=== PATIENT | female | born 1945 | race Caucasian/White ===

== ENCOUNTER → 2018-08-31 14:43 | Outpatient (CLI) | payer MEDICARE, SELFPAY ==
[2018-08-31 16:39] LABS: BUN Creatinine Ratio 25.6 (6-22); Blood Urea Nitrogen 23 mg/dL (7-17); Calcium 9.4 mg/dL (8.4-10.2); Carbon Dioxide 30 mmol/L (22-32); Chloride 102 mmol/L (98-107); Cholesterol 201 mg/dL (140-199); Estimated Glomerular Filt Rate > 60.0 mL/min (>60); Glucose 92 mg/dL (80-110); HDL Cholesterol 79 mg/dL (40-60); HEMOLYSIS < 15 (0-50); LDL Cholesterol Calculated 107 mg/dL (<100); Potassium 4.2 mmol/L (3.4-5.1); Sodium 143 mmol/L (137-145); Triglycerides 76 mg/dL (35-150)
== END ==
PROVIDERS: PCP Internal Medicine; Visit Provider Internal Medicine
DX: Z00.00 Encounter for general adult medical examination without abnormal findings (principal); M85.831 Other specified disorders of bone density and structure, right forearm; Z78.0 Asymptomatic menopausal state; Z87.891 Personal history of nicotine dependence
CPT/HCPCS: 36415; 77080; 80048; 80061

== ENCOUNTER 2018-10-10 15:42 | Emergency (ER) | payer MEDICARE, SELFPAY ==
[2018-10-10 15:53] VITALS: BP 170/74; PULSE 76; RESP 16; TEMP 36.7; O2SAT 100
--- NOTE | 2018-10-10 16:04 | DI.RAD.S_ITS ---
PROCEDURE: XR CHEST 1V INDICATIONS: chest pain TECHNIQUE: One view of the chest was acquired. COMPARISON: [facility], , CHEST 2 VIEW, 11/22/2010, 10:51. FINDINGS: Surgical changes and devices: None. Lungs and pleura: No pleural effusions or pneumothorax. No acute consolidation. There is scattered subsegmental atelectasis and/or scarring . Mediastinum: Mediastinal contours appear normal. Heart size is normal. Bones and chest wall: No suspicious bony lesions. Overlying soft tissues appear unremarkable. Lateral curvature of the spine IMPRESSION: No acute disease. Dictated by: Clement Townsend M.D. on 10/10/2018 at 16:27 Approved by: Clement Townsend M.D. on 10/10/2018 at 16:29
--- NOTE | 2018-10-10 16:10 | ED_ITS ---
HPI - Chest Pain General Chief Complaint: Chest Pain Stated Complaint: CHEST PAIN, LT ARM PAIN Time Seen by Provider: 10/10/18 15:59 Source: patient Mode of arrival: ambulatory Limitations: no limitations History of Present Illness HPI narrative: Patient is a 73-year-old female who presents with chest discomfort. She says she was in the kitchen where she felt some chest pressure and tightness. She took some Rolaids and aspirin lasted for under the than 10 min. She denies any shortness of breath or heart palpitations. Earlier in the day she was having some left arm tingling from her fingertips up to her arm felt like her hand was asleep. She did not have the symptoms at the same time. She overall has no chest pain now. MD complaint: chest pain Onset (ago): minute(s) Duration: now resolved Severity: moderate Quality: tightness and heaviness Pain radiation: none Relieving factors: nothing Exacerbating factors: nothing Context: recent illness Associated symptoms: nausea Treatments prior to arrival chest pain: none Related Data Allergies Allergy/AdvReac Type Severity Reaction Status Date / Time INGREDIENT: NKDA - NO KNOWN Allergy Unknown Uncoded 02/14/18 12:53 DRUG ALLERGIES Meperidine AdvReac Unknown Uncoded 02/14/18 12:53 Review of Systems Review of Systems All systems reviewed & are unremarkable except as noted in HPI and below Constitutional Denies chills, Denies fever(s), Denies lethargy and Denies weakness Cardiovascular Reports as per HPI, Reports chest pain, Denies dyspnea and Denies dyspnea on exertion Respiratory Denies cough, Denies dyspnea, Denies dyspnea on exertion and Denies wheezing Gastrointestinal Gastrointestinal: Denies abdominal pain, Denies change in bowel habits, Denies diarrhea, Denies nausea and Denies vomiting Musculoskeletal Reports as per HPI Comments: Left hand tingling now resolved Integumentary/Breasts Denies pruritus, Denies erythema, Denies rash and Denies wounds Neurologic Denies weakness Allergic/Immunologic Denies wheezing PFSH Medical History GERD (gastroesophageal reflux disease) (Acute) Healthy adult (Acute) Social History Smoking Status: Never smoker alcohol intake: never substance use type: does not use Exam Initial Vital Signs Initial Vital Signs: Vital Signs Temperature 98.1 F 10/10/18 15:53 Pulse Rate 76 10/10/18 15:53 Respiratory Rate 16 10/10/18 15:53 Blood Pressure 170/74 H 10/10/18 15:53 Pulse Oximetry 100 10/10/18 15:53 GENERAL: Well-appearing, well-nourished and in no acute distress. HEENT: Head atraumatic,EOMI, pupils reactive, face symmetric, no JVD CARDIOVASCULAR: Regular rate and rhythm without murmurs, rubs or gallops. RESPIRATORY: Breath sounds equal bilaterally, no wheezes rales or rhonchi. ABDOMEN: Soft, nontender. Normoactive bowel sounds all 4 quadrants. No guarding or rebound. : No CVA tenderness EXTREMITIES: Normal range of motion, no clubbing or edema. Neurovascularly intact NEUROLOGICAL: Alert and oriented x4.Normal gait and speech. Cranial nerves II through XII grossly intact. SKIN: Warm, dry, no laceration, no petechiae, no rashes or lesions. Scores HEART Score Heart Score history: Slightly Suspicious Heart Score EKG: Normal Heart Score Age: > or = 65 years old Heart Score risk factors: No known risk factors Heart Score troponin: < or = to normal limit Heart Score Total: 2 Course Orders Ordered: ED Orders 10/10/18 15:52 EKG-12 Lead Stat 10/10/18 15:55 Complete Blood Count AUTO DIFF Stat Comprehensive Metabolic Panel Stat Lipase Stat Troponin & CK Cardiac Panel Stat 10/10/18 16:04 XR chest 1V Stat 10/10/18 16:33 EKG-12 Lead Routine 10/10/18 17:57 Troponin I Stat Vital Signs - 8 hr 10/10/18 15:53 10/10/18 17:02 10/10/18 18:00 Temperature 98.1 F Pulse Rate 76 58 L 60 Respiratory Rate 16 15 12 Blood Pressure 170/74 H Blood Pressure [Right Arm] 159/80 H 184/75 H Pulse Oximetry 100 98 100 MDM - Chest Pain Lab Data Attestation: I reviewed the patient's lab results. Result diagrams: 10/10/18 15:55 10/10/18 15:55 Lab Results 10/10/18 10/10/18 10/10/18 Range/Units 15:55 15:55 17:57 WBC 6.2 (4.5-11.0) X10^3/uL RBC 4.01 (4.0-5.2) X10^6/uL Hgb 13.0 (12.0-16.0) g/dL Hct 37.6 (36-46) % MCV 93.8 (80-100) fL MCH 32.5 (26-34) PG MCHC 34.6 (30-36) % RDW 13.3 (11.6-14.8) % Plt Count 249 (150-400) X10^3/uL Neut % (Auto) 46.2 L (50-75) % Lymph % (Auto) 39.5 (25-40) % [place] % (Auto) 7.6 (3-14) % Eos % (Auto) 5.6 H (2-4) % Baso % (Auto) 1.1 (0-2) % Neut # (Auto) 2800 L (7899-4258) /uL Sodium 142 (137-145) mmol/L Potassium 3.8 (3.4-5.1) mmol/L Chloride 104 (98-107) mmol/L Carbon Dioxide 28 (22-32) mmol/L BUN 31 H (7-17) mg/dL Creatinine 0.90 (0.52-1.04) mg/dL Estimated GFR > 60.0 (>60) mL/min BUN/Creatinine Ratio 34.4 H (6-22) Glucose 112 H (80-110) mg/dL Calcium 9.3 (8.4-10.2) mg/dL Total Bilirubin 0.4 (0.2-1.3) mg/dL AST 30 (14-36) IU/L ALT 23 (9-52) IU/L Alkaline Phosphatase 62 (38-126) U/L Total Creatine Kinase 102 (30-135) U/L CK-MB (CK-2) 0.80 (<2.37) ng/mL CK-MB (CK-2) Rel Index 0.8 L (1.5-5.0) % Troponin I < 0.012 < 0.012 (0.01-0.034) ng/mL Total Protein 6.8 (6.3-8.2) g/dL Albumin 4.2 (3.5-5.0) g/dL Globulin 2.6 (1.7-4.1) g/dL Albumin/Globulin Ratio 1.6 (1.0-2.8) Lipase 155 (23-300) U/L Imaging Data Chest x-ray: Radiologist's impression: Patient: Mona Sparrow JMR#: [id number] : 6Acct:[id number] Age/Sex: 73 / FDate of Service: 10/10/18 Loc: ED Accession Number: [id number] Procedure: XR chest 1V Ordering Provider: Marlene Sorto D.O. PROCEDURE: XR CHEST 1V INDICATIONS: chest pain TECHNIQUE: One view of the chest was acquired. COMPARISON: [facility], CHEST 2 VIEW, 11/22/2010, 10:51. FINDINGS: Surgical changes and devices: None. Lungs and pleura: No pleural effusions or pneumothorax. No acute consolidation. There is scattered subsegmental atelectasis and/or scarring . Mediastinum: Mediastinal contours appear normal. Heart size is normal. Bones and chest wall: No suspicious bony lesions. Overlying soft tissues appear unremarkable. Lateral curvature of the spine IMPRESSION: No acute disease. Dictated by: Clement Townsend M.D. on 10/10/2018 at 16:27 ECG Data Attestation: I personally reviewed and interpreted this ECG as follows: Prior ECG tracings: not available for review Interpretation: EKG 1.: Sinus rhythm rate [address] depression in V2 and V3 but there is artifact is, no ST changes no priors to compare EKG 2. Normal sinus rhythm rate 16 CA interval [address] changes no artifact noted no T-wave inversion MDM Narrative Medical decision making narrative: Patient has not had recurrent chest pain while in the ED 2 troponins are negative. Did discuss with her that she may need further cardiac evaluation. However not at this time. She still has intermittent hand tingling but no arm weakness. She says that tingling goes up to her elbow sometimes. This is not consistent with cardiac or stroke. Discharge Plan Departure Patient Disposition: Home Clinical Impression: Atypical chest pain Discharge Date/Time: 10/10/18 18:43 Interventions: ED Discharge Assessment Last Done: 10/10/18 18:42 Instructions: DI for Atypical Chest Pain Activity Restrictions/Additional Instructions: *You have been diagnosed with atypical chest *What to do: He may require further hurt evaluation such as a stress test with her primary care provider. Your blood pressure should also be rechecked you may require a blood pressure medication however not indicated at this time *Continue to take medications as directed Aspirin 81 mg daily *Follow up with your primary care provider in 2-3 days *Return to ER if you should have worsening chest pain, shortness of breath, heart palpitations, arm pain, arm weakness or any new, worsening or concerning symptoms Referrals: Rebeca Sawant MD [Physician] -
[2018-10-10 16:16] LABS: Add Manual Diff / Slide Review NO; Basophils Percent Auto 1.1 % (0-2); Eosinophils Percent Auto 5.6 % (2-4); Hematocrit 37.6 % (36-46); Lymphocytes Percent Auto 39.5 % (25-40); Mean Corpuscular HGB Conc 34.6 % (30-36); Mean Corpuscular Hemoglobin 32.5 PG (26-34); Mean Corpuscular Volume 93.8 fL (80-100); Monocytes Percent Auto 7.6 % (3-14); Neutrophils Absolute Auto 2800 /uL (3000-5900); Neutrophils Percent Auto 46.2 % (50-75); Platelet Count 249 X10^3/uL (150-400); Red Blood Cell Count 4.01 X10^6/uL (4.0-5.2); Red Cell Distribution Width 13.3 % (11.6-14.8); White Blood Cell Count 6.2 X10^3/uL (4.5-11.0)
[2018-10-10 16:22] LABS: Alanine Aminotransferase 23 IU/L (9-52); Albumin 4.2 g/dL (3.5-5.0); Albumin Globulin Ratio 1.6 (1.0-2.8); Alkaline Phosphatase 62 U/L (38-126); Aspartate Aminotransferase 30 IU/L (14-36); BUN Creatinine Ratio 34.4 (6-22); Bilirubin Total 0.4 mg/dL (0.2-1.3); Blood Urea Nitrogen 31 mg/dL (7-17); Calcium 9.3 mg/dL (8.4-10.2); Carbon Dioxide 28 mmol/L (22-32); Chloride 104 mmol/L (98-107); Creatine Kinase 102 U/L (30-135); Estimated Glomerular Filt Rate > 60.0 mL/min (>60); Globulin 2.6 g/dL (1.7-4.1); Glucose 112 mg/dL (80-110); HEMOLYSIS 15 (0-50); Lipase 155 U/L (23-300); Potassium 3.8 mmol/L (3.4-5.1); Sodium 142 mmol/L (137-145); Total Protein 6.8 g/dL (6.3-8.2)
[2018-10-10 16:37] LABS: Troponin I < 0.012 ng/mL (0.01-0.034)
[2018-10-10 16:38] LABS: CKMB % Relative Index 0.8 % (1.5-5.0)
[2018-10-10 17:02] VITALS: BP 159/80; PULSE 58; RESP 15; O2SAT 98
[2018-10-10 18:00] VITALS: BP 184/75; PULSE 60; RESP 12; O2SAT 100
[2018-10-10 18:32] LABS: Troponin I < 0.012 ng/mL (0.01-0.034)
[2018-10-10 18:42] VITALS: BP 174/81; PULSE 58; RESP 20; O2SAT 99
== END 2018-10-10 18:43 | disposition home or self-care (01) ==
PROVIDERS: Emergency Provider Emergency Medicine
DX: R07.89 Other chest pain (principal)
CPT/HCPCS: 36591; 71045; 80053; 82550; 82553; 83690; 84484; 85025; 93005; 93010; 93041; 99283; 99285

== ENCOUNTER → 2018-11-13 08:15 | Outpatient (CLI) | payer MEDICARE, SELFPAY ==
--- NOTE | 2018-11-13 09:21 | P.PCN_ITS ---
Cardiac Stress Test Report Referral & Results Date Patient Seen: 11/13/18 Requesting provider: Rebeca Sawant Indication: Chest pain Rest ECG: Unremarkable Procedure Note: Today following both written and verbal informed consent the patient was exercised according to a standard Garry protocol patient went for a total of 3 min 34 sec achieving a maximum heart rate of 155 maximum systolic blood pressure of 212. This is approximately 4.6 METS. Exercise was terminated at this point because of inability the patient to continue and mild dyspnea. Patient was also given Cardiolite through a previously started Hep-Lock IV by the fire sprinkler service technician approximately 1 minute prior to the cessation of exercise. No ST-T segment changes were noted although there was a lot of motion artifact but and exercise with artifact missing there was no ST segment changes No dysrhythmias were identified Functional aerobic impairment rated about 10% of the sedentary scale Impression: No evidence of ischemia in a patient with average exercise capacity Please see perfusion imaging for additional details Please note: Actual ECG tracings can be found in the PACS system.
--- NOTE | 2018-11-14 14:51 | DI.NM.S_ITS ---
DATE OF SERVICE: 11/13/2018 PROCEDURE: Exercise perfusion study. INDICATIONS: Chest pain with underlying hypertension, hyperlipidemia. RADIOPHARMACEUTICAL: 26.6mCi technetium-99m Myoview IV was injected at stress and 24.9 mCi technetium-99m Myoview IV was injected at rest. CARDIAC STRESS: Patient underwent exercise perfusion study under the supervision of an attending staff. She walked on Garry protocol for 3 minutes 34 seconds, achieved 97% of target heart rate. There was hypertensive blood pressure response. Resting blood pressure 136/78. Blood pressure 212/100. Maximum heart rate of about 145. Functional aerobic impairment +35%. Patient became hypertensive and tachycardic during stress and it was discontinued. Baseline rhythm was sinus RSR-complex in V1. Stress EKG did not reveal any obvious inducible changes. There was baseline artifact seen as well during stress. No significant arrhythmias seen. Patient had dyspnea. No chest pain. RAW DATA: There is increased subdiaphragmatic activity. There is hotspot near the apex and inferior border. GATED STUDY: Stress LV ejection fraction 78%. I don't see any obvious wall motion abnormalities. Resting end-diastolic volume is 96 mL. No transient ischemic dilatation. TID ratio is 0.71, which is within normal limits. Lung/heart ratio is 0.21, which is within normal limits. MYOCARDIAL PERFUSION SCAN: Stress supine, resting supine, and stress prone images were compared to each other. Stress supine images revealed small-sized mildly decreased perfusion of distal anterior wall and anterior apex. Resting supine images revealed small -sized [id number] decreased perfusion of distal anterior wall and anterior apex. During stress prone images, there was improvement of distal anterior wall defect. However, patient remained to have mildly decreased perfusion of anterior apex. I don't see any obvious reversible ischemia. CONCLUSION: No obvious reversible ischemia. Patient has predominantly fixed apical perfusion defect. There is a hotspot seen near the apex and inferior border of the heart. [place] is moving well. Most likely we are dealing with persistent tissue attenuation artifact. On surface EKG, there is no obvious pathological Q waves. Stress EKG did not reveal any obvious inducible ischemia or significant arrhythmias. The patient has poor exercise tolerance. There was hypertensive blood pressure response. Overall, function left ventricular (LV) is preserved. Clinical correlation is recommended. Mona Sparrow - NON LINEAR EDITOR/fn/ab doc#: [id number]/job#: [id number] dd: 11/14/2018 12:39:00 dt: 11/14/2018 14:37:00 DICTATING MD/COPIES TO: Siria Paiz MD COPIES MNE: XIN
== END ==
PROVIDERS: Visit Provider Internal Medicine
DX: R07.9 Chest pain, unspecified (principal); I10 Essential (primary) hypertension; E78.5 Hyperlipidemia, unspecified
CPT/HCPCS: 78452; 93016; 93017; 93018; A9502

== ENCOUNTER → 2018-12-06 15:09 | Outpatient (CLI) | payer MEDICARE, SELFPAY ==
--- NOTE | 2018-12-06 | DI.MRI.S_ITS ---
PROCEDURE: MR HEAD/BRAIN WO CON INDICATIONS: HEADACHE TECHNIQUE: Non-contrast axial T1 spin echo, axial T2 fast spin echo, sagittal and axial FLAIR, coronal T2 fast spin echo, axial gradient echo, axial diffusion and ADC through the brain. COMPARISON: [facility], MR, BRAIN WITH AND WITHOUT CONTRAS, 04/11/2008, 7:26. [facility] With [facility], MR, C-SPINE WITH&WITHOUT CONTRAST, 04/11/2008, 7:07. FINDINGS: Image quality: Excellent. CSF spaces: Ventricles appear symmetric in size and shape. Basal cisterns are patent. No extra-axial fluid collections. Brain: No intracranial bleeds or mass effects. There is cerebral volume loss for age. There are foci of T2 hyperintensity in the periventricular and subcortical white matter. One white matter lesion involves the splenium of corpus callosum Brainstem appears normal. Diffusion-weighted images show no acute ischemic insults. No chronic ischemic insults. Normal intravascular flow voids are present. Skull and face: Calvarial bone marrow is normal in signal. Orbits are normal. Sinuses: Sinuses and mastoids are clear. IMPRESSION: 1. No acute intracranial abnormalities. 2. There are foci of T2 hyperintensity in the periventricular and subcortical white matter. One white matter lesion involves corpus of callosum. Differential diagnoses include chronic microvascular ischemic changes versus a demyelinating process such as multiple sclerosis. Recommend clinical correlation. Dictated by: Bobby Gan M.D. on 12/06/2018 at 16:42 Approved by: Bobby Gan M.D. on 12/06/2018 at 18:23
== END ==
PROVIDERS: PCP Internal Medicine; Visit Provider Internal Medicine
DX: R51 Headache (principal)
CPT/HCPCS: 70551

== ENCOUNTER → 2019-01-14 06:20 | Outpatient (CLI) | payer MEDICARE, SELFPAY ==
--- NOTE | 2019-01-14 | DI.MRI.S_ITS ---
PROCEDURE: MR HEAD/BRAIN WO/W CON INDICATIONS: ABNORMAL MRI BRAIN TECHNIQUE: Noncontrast axial T1 spin echo, axial T2 fast spin echo, sagittal and axial FLAIR, coronal T2 fast spin echo, axial gradient echo, axial diffusion and ADC through the brain. After the administration of contrast, axial and coronal T1 spin echo with fat saturation through the brain. COMPARISON: [facility], MR, BRAIN WITH AND WITHOUT CONTRAS, 04/11/2008, 7:26. [facility], MR, MR HEAD/BRAIN WO CON, 12/06/2018, 15:24. FINDINGS: Image quality: Excellent. CSF spaces: Basal cisterns are patent. No extra-axial fluid collections. Ventricles are normal in size and shape. Brain: No midline shift. No intracranial bleeds or masses. No abnormal intracranial enhancement. There is cerebral volume loss for age. There are multiple foci of T2/FLAIR hyperintensity in the periventricular and subcortical white. One white matter lesion involves the splenium of corpus callosum. On contrast enhanced images, there is no abnormal enhancement. The brainstem appears normal. Diffusion-weighted images demonstrate no acute ischemic insults. No chronic ischemic insults. Normal intravascular flow voids are present. Skull and face: Calvarial marrow is normal in signal. Orbits appear normal. Sinuses: Sinuses and mastoids appear clear. IMPRESSION: 1. There are multiple foci of white matter lesions bilaterally. The white matter lesion involving the splenium of corpus callosum, as well as other matter lesions, demonstrate no abnormal enhancement. Differential diagnosis remains chronic small vessel ischemic change versus multiple sclerosis. 2. Mild cerebral volume loss. Dictated by: Bobby Gan M.D. on 01/14/2019 at 9:04 Approved by: Bobby Gan M.D. on 01/14/2019 at 18:18
--- NOTE | 2019-01-14 | DI.MRI.S_ITS ---
PROCEDURE: MR CERVICAL SPINE WO/W CON INDICATIONS: ABN PRIOR HEAD MRI TECHNIQUE: Noncontrast sagittal T1 spin echo and T2 fast spin echo, sagittal STIR, sagittal PD fast spin echo, foraminal oblique sagittal T2 fast spin echo, axial gradient echo or T2 fast spin echo through the cervical spine. After the administration of contrast, sagittal and axial T1 spin echo with fat saturation through the cervical spine. COMPARISON: [facility], MR, MR HEAD/BRAIN WO/W CON, 01/14/2019, 6:44. [facility], MR, MR HEAD/BRAIN WO CON, 12/06/2018, 15:24. [facility], MR, C-SPINE WITH&WITHOUT CONTRAST, 04/11/2008, 7:07. FINDINGS: Image quality: Excellent. Alignment and curvature: There is trace retrolisthesis of C4 on C5, C6 on C7, trace anterolisthesis of C7 on T1, T2 on T3. Marrow: Marrow demonstrates normal overall signal. Spinal cord: Visualized spinal cord is normal in size, without white matter lesions. No suspicious intramedullary enhancement. No cerebellar tonsillar herniation. Paraspinous soft tissues: No paravertebral masses or suspicious enhancement. Discs: Moderate to severe desiccation is present most severe at C4-5, C5-6 and C6-7. C2-C3: No disc bulge, spinal stenosis or foraminal narrowing. C3-C4: Mild disc bulge with mild spinal stenosis. There is mild to moderate right and foraminal narrowing with uncovertebral hypertrophy. Slight interval progression. C4-C5: Mild disc bulge with moderate spinal stenosis, slightly progressive. There is moderate bilateral foraminal narrowing with uncovertebral hypertrophy, also progressive. C5-C6: Mild disc bulge with moderate to severe spinal stenosis, progressive. Moderate to severe left and moderate right foraminal narrowing with uncovertebral hypertrophy, mildly progressive. C6-C7: Mild disc bulge with moderate spinal stenosis, progressive. Moderate bilateral, right greater than left foraminal narrowing with uncovertebral hypertrophy, slightly progressive compared to prior exam. C7-T1: No disc bulge, spinal stenosis or foraminal narrowing. IMPRESSION: 1. No abnormal spinal cord signal. 2. Multilevel degenerative changes demonstrating levels of interval progression compared to 2007. Dictated by: Caitie Hopper M.D. on 01/14/2019 at 11:36 Approved by: Caitie Hopper M.D. on 01/14/2019 at 12:01
== END ==
PROVIDERS: PCP Internal Medicine; Visit Provider Physician Assistant
DX: R90.89 Other abnormal findings on diagnostic imaging of central nervous system (principal); M47.812 Spondylosis without myelopathy or radiculopathy, cervical region
CPT/HCPCS: 70553; 72156; A9579

== ENCOUNTER 2019-03-12 13:00 | Outpatient (RCR) | payer MEDICARE, SELFPAY ==
--- NOTE | 2019-02-15 15:49 | PT.OIE ---
Current Diagnoses Radiculopathy, cervical region (02/14/19) Past Medical History (Last Updated 10/10/18 @ 16:10 by Marlene Sorto DO) GERD (gastroesophageal reflux disease) (Acute) Healthy adult (Acute) Provider Visit Care Team Role Provider Type Rebeca Sawant MD Primary Care Provider Physician Specialty: Internal Medicine Address: [address] [place] [address], [id number] Email: Madeline Escobedo MD Attending Provider Non-Staff Specialty: Neurology Address: [address] [place] [address], [id number] Email: Physical Therapy Initial Evaluation PT-OP-A Visit Information Start: 02/14/19 08:19 Freq: Status: Active Protocol: Document 02/14/19 08:21 BS (Rec: 02/14/19 08:25 BS [id number]) Out-Patient Physical Therapy Visit Information Visit Information Visit Type Initial Evaluation Visit Start Time 08:25 Visit Stop Time 09:10 Total Visit Minutes 45 Visit Number 1 Evaluation Information Evaluation Date 02/14/19 PT-OP-B Current Condition Start: 02/14/19 08:19 Freq: Status: Active Protocol: Document 02/14/19 08:21 BS (Rec: 02/14/19 08:25 BS [id number]) Current Condition History of Current Condition Onset Date 10/10/18 Current Complaints Neck pain with LUE numbness/ tingling, headache History of Current Condition Pt complains of neck pain, sharp shooting headaches and LUE numbness and tingling currently extending down to the palmar surface of the hand with no specific nerve distribution. This all began on 10/10/18 when pt experienced entire LUE numbness beginning in her L hand and gradually progressing to her shoulder and neck. Pt also states she had a headache, chest pain, and that her HR and BP was high. She went to the ED and reports all testing including chest xray were negative for cardiopulmonary involvement. Pt states that she continued to have constant LUE numbness for 3 weeks and that since then it has mostly localized to L hand limiting her ability to complete fine motor tasks. Pt reports neck pain as moderate and tolerable but that LUE numbness/tingling and daily sharp shooting electrical shock-like L sided HAs are of concern to her. Pt reports CALIX frequency of 3-6 per day lasting 10-15 minutes. She takes up to 4 ibuprofen/ day which relieves her HAs. Pt has had an MRI of cervical spine and brain, and NCV test all within the last month. Pt is R hand dominant. Prior Treatments and Tests VNCV 02/13/19:awaiting results Cervical MRI (01/14/19): multilevel degenerative changes and mild disc bulges Brain MRI (01/14/19): multiple foci of white matter lesions bilaterally, mild cerebral volume loss Chest Xray 10/10/18: negative per pt report tirn nerve sheath thumb side. 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 Hearing loss with use of hearing aids. Treatment Goals Patient/Caregiver Goals get rid of numbness/tingling reduce daily headaches Prior Functional Status Baseline Function- ADL's Independent Baseline Function- Mobility Independent Baseline Function- Gait Independent Baseline Function- Work/School Independent. Pt is currently retired. Enjoys mission work in [employer]. Baseline Function- Recreation/Hobbies Independent Baseline Function- Other Independent with all daily and recreational activities. Current Functional Impairments (Reported) Functional Limitations- ADL's unable to complete ADLs requiring manipulation of objects and fine motor control of L hand. Difficulty sleeping at night due to HAs and numbness/ tingling in LUE. Functional Limitations- Mobility/Gait Difficulty opening jars, carrying bags, preparing/ cutting food, and neck pain with driving. Pt ambulated with normal gait mechanics and without use of AD. Personal Factors Other Personal Factors That May Effect multilevel degenerative Therapy/Recovery changes of cervical spine PT-OP-C Subjective Start: 02/14/19 08:19 Freq: Status: Active Protocol: Document 02/14/19 08:21 BS (Rec: 02/14/19 08:25 BS [id number]) Patient Questionnaires Neck Disability Index NDI Score 30 Neck Disability Index Impairment 60 to 79% Impaired (Score 30- 39) Quick Dash- Upper Extremity Quick Dash UE Score 45 Quick Dash UE Impairment 40 to 59% Impaired (Score 40- 59) OP-PT Pain Assessment Pain Assessment Grid Paper Pain Assessment Grid Completed Yes Location Left Arm Pain Location Details Entire LUE Intensity 7 Scale Used Numeric (1 - 10) Description Radiating Sharp Description- Other Numbness/tingling Pain Aggravating Factors Position ADL's Activity Other Pain Aggravating Factors Ibuprofn for CALIX Home Pain Medication Use Pain Medications Used Yes Home Pain Medication Frequency up to 4 ibuprofen/day Comments Pain Comments 4/10 neck pain that is intermittent with numbness/ tingling extending to palmar surface of L hand. PT-OP-F Manual Assessment Start: 02/14/19 08:19 Freq: Status: Active Protocol: Document 02/14/19 08:21 BS (Rec: 02/15/19 08:15 BS [id number]) Manual Assessments Soft Tissue Assessment Soft Tissue Mobility Assessment Tightness of bilateral upper traps, tenderness to palpation of L suboccipitals. Joint Mobility Assessment Joint Mobility Assessment Hypomobility with central and unilateral PAs from C3-C7. PT-OP-G Mobility & Gait Start: 02/14/19 08:19 Freq: Status: Active Protocol: Document 02/14/19 08:21 BS (Rec: 02/15/19 08:15 BS [id number]) OP Mobility Evaluation Bed Mobility Supine to and from Sit Independent Transfers Sit to Stand Independent Bed to Chair Transfers Independent OP Gait Assessment Gait Gait Assistance Required: Independent Able to Maintain Weight Bearing Status Yes During Gait Assistive Devices Assistive Device None PT-OP-J Posture/Palpation/Skin Start: 02/14/19 08:19 Freq: Status: Active Protocol: Document 02/14/19 08:21 BS (Rec: 02/15/19 08:15 BS [id number]) Posture Evaluation Position Sitting Head/C-Spine Posture Forward Head Shoulder Posture (L) Rounded (R) Rounded Palpation Assessment Location One Palpation Location Cervical Palpation Findings Soft Tissue Tightness Palpation Details Bilateral upper traps, suboccipitals PT-OP-K Range of Motion Start: 02/14/19 08:19 Freq: Status: Active Protocol: Document 02/14/19 08:21 BS (Rec: 02/15/19 08:15 BS [id number]) Cervical Spine Range of Motion Cervical Spine Active Testing Position Sitting Flexion 40 Extension 25 Rotation Left 72 Rotation Right 45 Lateral Flexion Left 35 Lateral Flexion Right 30 Comments No pain or radicular symptoms with AROM today although pt states she occasionally has dizziness with cervical extension. Limited especially with R rotation. PT-OP-L Special Tests Start: 02/14/19 08:19 Freq: Status: Active Protocol: Document 02/14/19 08:21 BS (Rec: 02/15/19 14:22 BS [id number]) Special Tests Neural Special Tests- Upper Body Other- 1 Test Results Negative Comments Neural tension tests for median, ulnar, radial N negative for radicular symptom reproduction. PT-OP-M Strength Start: 02/14/19 08:19 Freq: Status: Active Protocol: Document 02/14/19 08:21 BS (Rec: 02/15/19 15:35 BS [id number]) Hand Program/Music Director/Pinch Strength Hand Dominance Hand Dominance Right Hand Strength Right Program/Music Director (lbs) 44.3 Tip Pinch (lbs) 7.66 Comments 3 trials: 48, 45, 40 3 trials: 8, 8, 7 Left Program/Music Director (lbs) 25 Tip Pinch (lbs) 8.0 Comments 3 trials: 25, 25, 25 3 trials: 8, 8, 8 PT-OP-Q Treatments Start: 02/14/19 08:19 Freq: Status: Active Protocol: Document 02/14/19 08:21 BS (Rec: 02/15/19 14:27 BS [id number]) Therapeutic Exercises Sitting Exercises 1 Sitting Exercise Name Upper trap stretch Side bilateral Reps/Minutes 2x30 each Comments added to HEP. Manual Therapy Treatment Soft Tissue Mobilization 1 Body Location Upper traps Mobilization Type Myofascial Release Rolling Intensity/Depth Moderate Body Position Hooklying Comments B upper trap tightness, no trigger points or pain referral. Joint Mobilizations 1 Joint Cervical C3-C7 Direction PA Grade III Body Position Hooklying Comments central and unilateral PAs. Hypomobility noted. Manual Traction Cervical Details Cervical Manual traction Body Position Hooklying Comments Pt experienced pain relief with manual traction to C spine. PT-OP-T Assessment and Plan Start: 02/14/19 08:19 Freq: Status: Active Protocol: Document 02/14/19 08:21 BS (Rec: 02/15/19 08:15 BS [id number]) Physical Therapy Assessment Rehab Potential Rehabilitation Potential Good Evaluation Complexity Number of Personal Factors/Comorbidities 0 Number of Body Systems Impaired 1-2 Clinical Presentation at Evaluation Stable Impairments Impairments Activity Tolerance Functional Activities Functional Mobility Pain Posture ROM Soft Tissue Mobility Strength Goals Three Short Term Goal (STG) Pt to report centralization of radicular symptoms in LUE and improved kiln stoker strength (LUE comparable to RUE) so that she is able to open jars and manipulate object. STG Duration 6 weeks Fdc Goal (LTG) Neck disability inventory (NDI ) to improve by 10%, demonstrating an improvement in ability to perform recreational and daily activities without limitations due to neck pain. LTG Duration 10-12 weeks Two STG Duration ROM Key Punch Operator Goal (LTG) Cervical ROM for R rotation to be comparable to L rotation for improved functional mobility and less neck stiffness with driving. LTG Duration 10-12 weeks One Impairment HEP Short Term Goal (STG) Pt to be independent with prescribed HEP to maximize rehabilitation potential outside of formal PT sessions. STG Duration 4 weeks Key Punch Operator Goal (LTG) Pt to report a reduction in the frequency of daily headaches so that she is able to sleep throughout the night and engage in daily activities . LTG Duration 10-12 weeks Assessment Summary Assessment Mona is a 73 year old female who presents with neck pain and radicular symptoms extending to palmar aspect of L hand with no specific nerve distribution. She also reports daily sharp, electrical shock-like headaches that occur only on the L, 3-6 daily lasting 10-15 minutes in duration. Pt has difficulty with daily activities that require object manipulation and fine motor control such as preparing food, opening containers, and carrying objects. She has difficulty sleeping at night due to heaches and numbness/tingling in LUE. Pt demonstrates UE weakness with kiln stoker strenth deficits and hypomobility of the cervical spine. She benefits from skilled physical therapy to improve cervical mobility, UE strength, and to reduce LUE radicular symptoms so that she can perform daily activities without weakness or N/T. Plan to trial mechanical traction to see if pt will benefit from home traction device to reduce radicular symptoms. Physical Therapy Plan Frequency and Duration Frequency of Treatment 1-2x/week Duration of Treatment 10-12 weeks Plan of Care Start Date 02/14/19 Plan of Care End Date 05/10/19 Next Visit Focus/Plan Next Note Type Treatment Note Next Visit Plan Assess B shoulder strength, ROM, and cervical MMT. Trial mechanical traction.
--- NOTE | 2019-02-15 15:50 | PT.OPPOC ---
Current Diagnoses Radiculopathy, cervical region (02/14/19) Provider Visit Care Team Role Provider Type Rebeca Sawant MD Primary Care Provider Physician Specialty: Internal Medicine Address: [address] [place] [address], [id number] Email: Madeline Escobedo MD Attending Provider Non-Staff Specialty: Neurology Address: [address] [place], [address] Email: Plan Of Care PT-OP-T Assessment and Plan Start: 02/14/19 08:19 Freq: Status: Active Protocol: Document 02/14/19 08:21 BS (Rec: 02/15/19 08:15 BS [id number]) Physical Therapy Assessment Rehab Potential Rehabilitation Potential Good Evaluation Complexity Number of Personal Factors/Comorbidities 0 Number of Body Systems Impaired 1-2 Clinical Presentation at Evaluation Stable Impairments Impairments Activity Tolerance Functional Activities Functional Mobility Pain Posture ROM Soft Tissue Mobility Strength Goals Three Short Term Goal (STG) Pt to report centralization of radicular symptoms in LUE and improved rn allergy strength (LUE comparable to RUE) so that she is able to open jars and manipulate object. STG Duration 6 weeks Bullet Casting Operator Goal (LTG) Neck disability inventory (NDI ) to improve by 10%, demonstrating an improvement in ability to perform recreational and daily activities without limitations due to neck pain. LTG Duration 10-12 weeks Two STG Duration ROM Half-Way Goal (LTG) Cervical ROM for R rotation to be comparable to L rotation for improved functional mobility and less neck stiffness with driving. LTG Duration 10-12 weeks One Impairment HEP Short Term Goal (STG) Pt to be independent with prescribed HEP to maximize rehabilitation potential outside of formal PT sessions. STG Duration 4 weeks Half-Way Goal (LTG) Pt to report a reduction in the frequency of daily headaches so that she is able to sleep throughout the night and engage in daily activities . LTG Duration 10-12 weeks Assessment Summary Assessment Mona is a 73 year old female who presents with neck pain and radicular symptoms extending to palmar aspect of L hand with no specific nerve distribution. She also reports daily sharp, electrical shock-like headaches that occur only on the L, 3-6 daily lasting 10-15 minutes in duration. Pt has difficulty with daily activities that require object manipulation and fine motor control such as preparing food, opening containers, and carrying objects. She has difficulty sleeping at night due to heaches and numbness/tingling in LUE. Pt demonstrates UE weakness with rn allergy strenth deficits and hypomobility of the cervical spine. She benefits from skilled physical therapy to improve cervical mobility, UE strength, and to reduce LUE radicular symptoms so that she can perform daily activities without weakness or N/T. Plan to trial mechanical traction to see if pt will benefit from home traction device to reduce radicular symptoms. Physical Therapy Plan Frequency and Duration Frequency of Treatment 1-2x/week Duration of Treatment 10-12 weeks Plan of Care Start Date 02/14/19 Plan of Care End Date 05/10/19 Next Visit Focus/Plan Next Note Type Treatment Note Next Visit Plan Assess B shoulder strength, ROM, and cervical MMT. Trial mechanical traction. Plan of Care Dates Plan of Care Start Date 02/14/19 Plan of Care End Date 05/10/19 Please Sign and Return: I have reviewed this Plan of Care and certify that the skilled therapy services above are required to meet the patient?s needs. Physician Signature Date Printed Name and Credentials Clinical Instructor Signature Printed Name and Credentials
--- NOTE | 2019-02-18 12:46 | PT.OTN ---
Current Diagnoses Radiculopathy, cervical region (02/18/19) Physical Therapy Treatment Note PT-OP-A Visit Information Start: 02/14/19 08:19 Freq: Status: Active Protocol: Document 02/18/19 08:15 AMB (Rec: 02/18/19 11:59 AMB [email or web address]) Out-Patient Physical Therapy Visit Information Visit Information Visit Type Treatment Note Visit Start Time 08:15 Visit Stop Time 09:00 Total Visit Minutes 45 Visit Number 2 PT-OP-B Current Condition Start: 02/14/19 08:19 Freq: Status: Active Protocol: Document 02/14/19 08:21 BS (Rec: 02/14/19 08:25 BS [id number]) Current Condition History of Current Condition Onset Date 10/10/18 Current Complaints Neck pain with LUE numbness/ tingling, headache History of Current Condition Pt complains of neck pain, sharp shooting headaches and LUE numbness and tingling currently extending down to the palmar surface of the hand with no specific nerve distribution. This all began on 10/10/18 when pt experienced entire LUE numbness beginning in her L hand and gradually progressing to her shoulder and neck. Pt also states she had a headache, chest pain, and that her HR and BP was high. She went to the ED and reports all testing including chest xray were negative for cardiopulmonary involvement. Pt states that she continued to have constant LUE numbness for 3 weeks and that since then it has mostly localized to L hand limiting her ability to complete fine motor tasks. Pt reports neck pain as moderate and tolerable but that LUE numbness/tingling and daily sharp shooting electrical shock-like L sided HAs are of concern to her. Pt reports CALIX frequency of 3-6 per day lasting 10-15 minutes. She takes up to 4 ibuprofen/ day which relieves her HAs. Pt has had an MRI of cervical spine and brain, and NCV test all within the last month. Pt is R hand dominant. Prior Treatments and Tests VNCV 02/13/19:awaiting results Cervical MRI (01/14/19): multilevel degenerative changes and mild disc bulges Brain MRI (01/14/19): multiple foci of white matter lesions bilaterally, mild cerebral volume loss Chest Xray 10/10/18: negative per pt report tirn nerve sheath thumb side. 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 Hearing loss with use of hearing aids. Treatment Goals Patient/Caregiver Goals get rid of numbness/tingling reduce daily headaches Prior Functional Status Baseline Function- ADL's Independent Baseline Function- Mobility Independent Baseline Function- Gait Independent Baseline Function- Work/School Independent. Pt is currently retired. Enjoys mission work in [facility]. Baseline Function- Recreation/Hobbies Independent Baseline Function- Other Independent with all daily and recreational activities. Current Functional Impairments (Reported) Functional Limitations- ADL's unable to complete ADLs requiring manipulation of objects and fine motor control of L hand. Difficulty sleeping at night due to HAs and numbness/ tingling in LUE. Functional Limitations- Mobility/Gait Difficulty opening jars, carrying bags, preparing/ cutting food, and neck pain with driving. Pt ambulated with normal gait mechanics and without use of AD. Personal Factors Other Personal Factors That May Effect multilevel degenerative Therapy/Recovery changes of cervical spine PT-OP-C Subjective Start: 02/14/19 08:19 Freq: Status: Active Protocol: Document 02/18/19 08:15 AMB (Rec: 02/18/19 11:59 AMB [email or web address]) OP-PT Subjective Patient Comments Patient Comments Mona reports her neck has been feeling more mobile but her headaches have been lasting longer. She woke up with a headache today, but it is better now, she did take Aleve. PT-OP-F Manual Assessment Start: 02/14/19 08:19 Freq: Status: Active Protocol: Document 02/14/19 08:21 BS (Rec: 02/15/19 08:15 BS [id number]) Manual Assessments Soft Tissue Assessment Soft Tissue Mobility Assessment Tightness of bilateral upper traps, tenderness to palpation of L suboccipitals. Joint Mobility Assessment Joint Mobility Assessment Hypomobility with central and unilateral PAs from C3-C7. PT-OP-G Mobility & Gait Start: 02/14/19 08:19 Freq: Status: Active Protocol: Document 02/14/19 08:21 BS (Rec: 02/15/19 08:15 BS [id number]) OP Mobility Evaluation Bed Mobility Supine to and from Sit Independent Transfers Sit to Stand Independent Bed to Chair Transfers Independent OP Gait Assessment Gait Gait Assistance Required: Independent Able to Maintain Weight Bearing Status Yes During Gait Assistive Devices Assistive Device None PT-OP-J Posture/Palpation/Skin Start: 02/14/19 08:19 Freq: Status: Active Protocol: Document 02/14/19 08:21 BS (Rec: 02/15/19 08:15 BS [id number]) Posture Evaluation Position Sitting Head/C-Spine Posture Forward Head Shoulder Posture (L) Rounded (R) Rounded Palpation Assessment Location One Palpation Location Cervical Palpation Findings Soft Tissue Tightness Palpation Details Bilateral upper traps, suboccipitals PT-OP-K Range of Motion Start: 02/14/19 08:19 Freq: Status: Active Protocol: Document 02/14/19 08:21 BS (Rec: 02/15/19 08:15 BS [id number]) Cervical Spine Range of Motion Cervical Spine Active Testing Position Sitting Flexion 40 Extension 25 Rotation Left 72 Rotation Right 45 Lateral Flexion Left 35 Lateral Flexion Right 30 Comments No pain or radicular symptoms with AROM today although pt states she occasionally has dizziness with cervical extension. Limited especially with R rotation. PT-OP-L Special Tests Start: 02/14/19 08:19 Freq: Status: Active Protocol: Document 02/14/19 08:21 BS (Rec: 02/15/19 14:22 BS [id number]) Special Tests Neural Special Tests- Upper Body Other- 1 Test Results Negative Comments Neural tension tests for median, ulnar, radial N negative for radicular symptom reproduction. PT-OP-M Strength Start: 02/14/19 08:19 Freq: Status: Active Protocol: Document 02/18/19 08:00 AMB (Rec: 02/18/19 12:44 AMB [email or web address]) Shoulder Strength Shoulder Manual Muscle Testing Right Flexion 4 Good Extension 5 Normal Abduction (C5) 4 Good Adduction 5 Normal External Rotation 5 Normal Left Flexion 4- Good- Extension 5 Normal Abduction (C5) 4- Good- External Rotation 5 Normal Internal Rotation 5 Normal PT-OP-Q Treatments Start: 02/14/19 08:19 Freq: Status: Active Protocol: Document 02/18/19 08:15 AMB (Rec: 02/18/19 12:40 AMB [email or web address]) Therapeutic Exercises Supine Exercises 2 Supine Exercise Name chin tuck Reps/Minutes 5x10 Comments focus on lengthen post neck 1 Supine Exercise Name serratus punch Resistance AROM Reps/Minutes 10 Sitting Exercises 2 Sitting Exercise Name theraputty Resistance green Comments pinch/ cat wagon operator Therapeutic Activity Therapeutic Activity 1 Name sleep positioning with pillows , log roll technique Comments instructed pt to avoid sitting straight up in bed to protect neck. Can use pillows to prop to try to avoid R sidelying as this seems to cause hand numbness Manual Therapy Treatment Soft Tissue Mobilization 1 Body Location Upper traps Mobilization Type Myofascial Release Rolling Intensity/Depth Moderate Body Position Hooklying Comments B upper trap tightness, no trigger points or pain referral. Manual Traction Cervical Details Cervical Manual traction Body Position Hooklying Comments Pt experienced pain relief with manual traction to C spine. Other Other Manual Treatments instruction in 2 tennis ball in sock self myofascial release PT-OP-T Assessment and Plan Start: 02/14/19 08:19 Freq: Status: Active Protocol: Document 02/18/19 08:15 AMB (Rec: 02/18/19 11:59 AMB [email or web address]) Physical Therapy Assessment Assessment Summary Assessment Mona has had an increase in duration of her headache symptoms. Follow up to see if this is continuing. Shoulder strength is slightly diminished in both flexion and abduction bilaterally. Physical Therapy Plan Next Visit Focus/Plan Next Note Type Treatment Note Next Visit Plan Trial mechanical traction.
--- NOTE | 2019-02-21 12:44 | PT.OTN ---
Current Diagnoses Radiculopathy, cervical region (02/21/19) Physical Therapy Treatment Note PT-OP-A Visit Information Start: 02/14/19 08:19 Freq: Status: Active Protocol: Document 02/21/19 10:28 BS (Rec: 02/21/19 11:57 BS [email or web address]) Out-Patient Physical Therapy Visit Information Visit Information Visit Type Treatment Note Visit Start Time 09:45 Visit Stop Time 10:23 Total Visit Minutes 38 Visit Number 3 PT-OP-B Current Condition Start: 02/14/19 08:19 Freq: Status: Active Protocol: Document 02/14/19 08:21 BS (Rec: 02/14/19 08:25 BS [id number]) Current Condition History of Current Condition Onset Date 10/10/18 Current Complaints Neck pain with LUE numbness/ tingling, headache History of Current Condition Pt complains of neck pain, sharp shooting headaches and LUE numbness and tingling currently extending down to the palmar surface of the hand with no specific nerve distribution. This all began on 10/10/18 when pt experienced entire LUE numbness beginning in her L hand and gradually progressing to her shoulder and neck. Pt also states she had a headache, chest pain, and that her HR and BP was high. She went to the ED and reports all testing including chest xray were negative for cardiopulmonary involvement. Pt states that she continued to have constant LUE numbness for 3 weeks and that since then it has mostly localized to L hand limiting her ability to complete fine motor tasks. Pt reports neck pain as moderate and tolerable but that LUE numbness/tingling and daily sharp shooting electrical shock-like L sided HAs are of concern to her. Pt reports CALIX frequency of 3-6 per day lasting 10-15 minutes. She takes up to 4 ibuprofen/ day which relieves her HAs. Pt has had an MRI of cervical spine and brain, and NCV test all within the last month. Pt is R hand dominant. Prior Treatments and Tests VNCV 02/13/19:awaiting results Cervical MRI (01/14/19): multilevel degenerative changes and mild disc bulges Brain MRI (01/14/19): multiple foci of white matter lesions bilaterally, mild cerebral volume loss Chest Xray 10/10/18: negative per pt report tirn nerve sheath thumb side. 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 Hearing loss with use of hearing aids. Treatment Goals Patient/Caregiver Goals get rid of numbness/tingling reduce daily headaches Prior Functional Status Baseline Function- ADL's Independent Baseline Function- Mobility Independent Baseline Function- Gait Independent Baseline Function- Work/School Independent. Pt is currently retired. Enjoys mission work in [employer] [facility]. Baseline Function- Recreation/Hobbies Independent Baseline Function- Other Independent with all daily and recreational activities. Current Functional Impairments (Reported) Functional Limitations- ADL's unable to complete ADLs requiring manipulation of objects and fine motor control of L hand. Difficulty sleeping at night due to HAs and numbness/ tingling in LUE. Functional Limitations- Mobility/Gait Difficulty opening jars, carrying bags, preparing/ cutting food, and neck pain with driving. Pt ambulated with normal gait mechanics and without use of AD. Personal Factors Other Personal Factors That May Effect multilevel degenerative Therapy/Recovery changes of cervical spine PT-OP-C Subjective Start: 02/14/19 08:19 Freq: Status: Active Protocol: Document 02/21/19 10:28 BS (Rec: 02/21/19 11:57 BS [email or web address]) OP-PT Subjective Patient Comments Patient Comments Mona states that she has had a constant headache since her last appointment. She has also had more N/T into LUE. PT-OP-F Manual Assessment Start: 02/14/19 08:19 Freq: Status: Active Protocol: Document 02/14/19 08:21 BS (Rec: 02/15/19 08:15 BS [id number]) Manual Assessments Soft Tissue Assessment Soft Tissue Mobility Assessment Tightness of bilateral upper traps, tenderness to palpation of L suboccipitals. Joint Mobility Assessment Joint Mobility Assessment Hypomobility with central and unilateral PAs from C3-C7. PT-OP-G Mobility & Gait Start: 02/14/19 08:19 Freq: Status: Active Protocol: Document 02/14/19 08:21 BS (Rec: 02/15/19 08:15 BS [id number]) OP Mobility Evaluation Bed Mobility Supine to and from Sit Independent Transfers Sit to Stand Independent Bed to Chair Transfers Independent OP Gait Assessment Gait Gait Assistance Required: Independent Able to Maintain Weight Bearing Status Yes During Gait Assistive Devices Assistive Device None PT-OP-J Posture/Palpation/Skin Start: 02/14/19 08:19 Freq: Status: Active Protocol: Document 02/14/19 08:21 BS (Rec: 02/15/19 08:15 BS [id number]) Posture Evaluation Position Sitting Head/C-Spine Posture Forward Head Shoulder Posture (L) Rounded (R) Rounded Palpation Assessment Location One Palpation Location Cervical Palpation Findings Soft Tissue Tightness Palpation Details Bilateral upper traps, suboccipitals PT-OP-K Range of Motion Start: 02/14/19 08:19 Freq: Status: Active Protocol: Document 02/14/19 08:21 BS (Rec: 02/15/19 08:15 BS [id number]) Cervical Spine Range of Motion Cervical Spine Active Testing Position Sitting Flexion 40 Extension 25 Rotation Left 72 Rotation Right 45 Lateral Flexion Left 35 Lateral Flexion Right 30 Comments No pain or radicular symptoms with AROM today although pt states she occasionally has dizziness with cervical extension. Limited especially with R rotation. PT-OP-L Special Tests Start: 02/14/19 08:19 Freq: Status: Active Protocol: Document 02/14/19 08:21 BS (Rec: 02/15/19 14:22 BS [id number]) Special Tests Neural Special Tests- Upper Body Other- 1 Test Results Negative Comments Neural tension tests for median, ulnar, radial N negative for radicular symptom reproduction. PT-OP-M Strength Start: 02/14/19 08:19 Freq: Status: Active Protocol: Document 02/18/19 08:00 AMB (Rec: 02/18/19 12:44 AMB [email or web address]) Shoulder Strength Shoulder Manual Muscle Testing Right Flexion 4 Good Extension 5 Normal Abduction (C5) 4 Good Adduction 5 Normal External Rotation 5 Normal Left Flexion 4- Good- Extension 5 Normal Abduction (C5) 4- Good- External Rotation 5 Normal Internal Rotation 5 Normal PT-OP-Q Treatments Start: 02/14/19 08:19 Freq: Status: Active Protocol: Document 02/21/19 10:28 BS (Rec: 02/21/19 11:57 BS [id number]) Therapeutic Exercises Supine Exercises 3 Supine Exercise Name Pec Stretch foam roll Equipment Used half foam roll Reps/Minutes x4 min, x10 shld add. Comments sustained stretch, then with horizontal add. Pillows for flexion of neck. Sitting Exercises 4 Sitting Exercise Name UE flexion, abduction Side bilateral Equipment Used No weight Reps/Minutes x10 each 3 Sitting Exercise Name Chin Tuck Reps/Minutes 2 x 10 Comments VCs for correct technique. Manual Therapy Treatment Soft Tissue Mobilization 2 Body Location Suboccipitals Mobilization Type Rolling Intensity/Depth Moderate Body Position Hooklying Comments R suboccipital more tender than L today. No referral of pain. Neck in slight flexion. 1 Body Location Upper traps Mobilization Type Myofascial Release Rolling Trigger Point Release Intensity/Depth Moderate Body Position Hooklying Comments R upper trap tighter than L. Multiple trigger points with STM to L upper trap. Pt reports decreased N/T LUE after manual work. Neck in slight flexion. PT-OP-T Assessment and Plan Start: 02/14/19 08:19 Freq: Status: Active Protocol: Document 02/21/19 10:28 BS (Rec: 02/21/19 11:57 BS [email or web address]) Physical Therapy Assessment Assessment Summary Assessment Pt complains of constant headache since last session. Today's session focused on manual therapy with pec stretching and light shoulder/ neck mobility exercises avoiding extension and SB/ROT of cervical spine. Pt to discontinue UT stretch at home as this increases her neck pain. Physical Therapy Plan Next Visit Focus/Plan Next Note Type Treatment Note Next Visit Plan Assess response to session and headache status. Avoid cervical extension, SB, ROT exercises. Assess neural tension in LUE.
--- NOTE | 2019-02-27 13:10 | PT.OTN ---
Current Diagnoses Radiculopathy, cervical region (02/27/19) Physical Therapy Treatment Note PT-OP-A Visit Information Start: 02/14/19 08:19 Freq: Status: Active Protocol: Document 02/27/19 09:02 SAK (Rec: 02/27/19 09:21 SAK [id number]) Out-Patient Physical Therapy Visit Information Visit Information Visit Type Treatment Note Visit Start Time 09:00 Visit Number 4 PT-OP-B Current Condition Start: 02/14/19 08:19 Freq: Status: Active Protocol: Document 02/14/19 08:21 BS (Rec: 02/14/19 08:25 BS [id number]) Current Condition History of Current Condition Onset Date 10/10/18 Current Complaints Neck pain with LUE numbness/ tingling, headache History of Current Condition Pt complains of neck pain, sharp shooting headaches and LUE numbness and tingling currently extending down to the palmar surface of the hand with no specific nerve distribution. This all began on 10/10/18 when pt experienced entire LUE numbness beginning in her L hand and gradually progressing to her shoulder and neck. Pt also states she had a headache, chest pain, and that her HR and BP was high. She went to the ED and reports all testing including chest xray were negative for cardiopulmonary involvement. Pt states that she continued to have constant LUE numbness for 3 weeks and that since then it has mostly localized to L hand limiting her ability to complete fine motor tasks. Pt reports neck pain as moderate and tolerable but that LUE numbness/tingling and daily sharp shooting electrical shock-like L sided HAs are of concern to her. Pt reports CALIX frequency of 3-6 per day lasting 10-15 minutes. She takes up to 4 ibuprofen/ day which relieves her HAs. Pt has had an MRI of cervical spine and brain, and NCV test all within the last month. Pt is R hand dominant. Prior Treatments and Tests VNCV 02/13/19:awaiting results Cervical MRI (01/14/19): multilevel degenerative changes and mild disc bulges Brain MRI (01/14/19): multiple foci of white matter lesions bilaterally, mild cerebral volume loss Chest Xray 10/10/18: negative per pt report tirn nerve sheath thumb side. 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 Hearing loss with use of hearing aids. Treatment Goals Patient/Caregiver Goals get rid of numbness/tingling reduce daily headaches Prior Functional Status Baseline Function- ADL's Independent Baseline Function- Mobility Independent Baseline Function- Gait Independent Baseline Function- Work/School Independent. Pt is currently retired. Enjoys mission work in [facility]. Baseline Function- Recreation/Hobbies Independent Baseline Function- Other Independent with all daily and recreational activities. Current Functional Impairments (Reported) Functional Limitations- ADL's unable to complete ADLs requiring manipulation of objects and fine motor control of L hand. Difficulty sleeping at night due to HAs and numbness/ tingling in LUE. Functional Limitations- Mobility/Gait Difficulty opening jars, carrying bags, preparing/ cutting food, and neck pain with driving. Pt ambulated with normal gait mechanics and without use of AD. Personal Factors Other Personal Factors That May Effect multilevel degenerative Therapy/Recovery changes of cervical spine PT-OP-C Subjective Start: 02/14/19 08:19 Freq: Status: Active Protocol: Document 02/27/19 09:02 SAK (Rec: 02/27/19 09:21 SAK [id number]) OP-PT Subjective Patient Comments Patient Comments 2 days of headaches aftter last session. NOthing has helped so far. Reports she feels like she is not thinking as effectiely due to the pain and headaches. What feels the best is traction, states she applies pressure and pulls up on the back of her head when she is really hurting. Reports using tennis balls hurts. PT-OP-F Manual Assessment Start: 02/14/19 08:19 Freq: Status: Active Protocol: Document 02/14/19 08:21 BS (Rec: 02/15/19 08:15 BS [id number]) Manual Assessments Soft Tissue Assessment Soft Tissue Mobility Assessment Tightness of bilateral upper traps, tenderness to palpation of L suboccipitals. Joint Mobility Assessment Joint Mobility Assessment Hypomobility with central and unilateral PAs from C3-C7. PT-OP-G Mobility & Gait Start: 02/14/19 08:19 Freq: Status: Active Protocol: Document 02/14/19 08:21 BS (Rec: 02/15/19 08:15 BS [id number]) OP Mobility Evaluation Bed Mobility Supine to and from Sit Independent Transfers Sit to Stand Independent Bed to Chair Transfers Independent OP Gait Assessment Gait Gait Assistance Required: Independent Able to Maintain Weight Bearing Status Yes During Gait Assistive Devices Assistive Device None PT-OP-J Posture/Palpation/Skin Start: 02/14/19 08:19 Freq: Status: Active Protocol: Document 02/14/19 08:21 BS (Rec: 02/15/19 08:15 BS [id number]) Posture Evaluation Position Sitting Head/C-Spine Posture Forward Head Shoulder Posture (L) Rounded (R) Rounded Palpation Assessment Location One Palpation Location Cervical Palpation Findings Soft Tissue Tightness Palpation Details Bilateral upper traps, suboccipitals PT-OP-K Range of Motion Start: 02/14/19 08:19 Freq: Status: Active Protocol: Document 02/14/19 08:21 BS (Rec: 02/15/19 08:15 BS [id number]) Cervical Spine Range of Motion Cervical Spine Active Testing Position Sitting Flexion 40 Extension 25 Rotation Left 72 Rotation Right 45 Lateral Flexion Left 35 Lateral Flexion Right 30 Comments No pain or radicular symptoms with AROM today although pt states she occasionally has dizziness with cervical extension. Limited especially with R rotation. PT-OP-L Special Tests Start: 02/14/19 08:19 Freq: Status: Active Protocol: Document 02/14/19 08:21 BS (Rec: 02/15/19 14:22 BS [id number]) Special Tests Neural Special Tests- Upper Body Other- 1 Test Results Negative Comments Neural tension tests for median, ulnar, radial N negative for radicular symptom reproduction. PT-OP-M Strength Start: 02/14/19 08:19 Freq: Status: Active Protocol: Document 02/18/19 08:00 AMB (Rec: 02/18/19 12:44 AMB [email or web address]) Shoulder Strength Shoulder Manual Muscle Testing Right Flexion 4 Good Extension 5 Normal Abduction (C5) 4 Good Adduction 5 Normal External Rotation 5 Normal Left Flexion 4- Good- Extension 5 Normal Abduction (C5) 4- Good- External Rotation 5 Normal Internal Rotation 5 Normal PT-OP-Q Treatments Start: 02/14/19 08:19 Freq: Status: Active Protocol: Document 02/27/19 09:02 SAK (Rec: 02/27/19 09:21 SAK [id number]) Therapeutic Exercises Supine Exercises 4 Supine Exercise Name triangle stretch Reps/Minutes 2x30 3 Supine Exercise Name Pec Stretch Comments hor ab/ad x10 then passive stretch 2 Supine Exercise Name chin tuck Reps/Minutes 5x10 Comments focus on lengthen post neck Manual Therapy Treatment Soft Tissue Mobilization 2 Body Location Suboccipitals Mobilization Type Rolling Intensity/Depth Moderate Body Position Hooklying 1 Body Location Upper traps Mobilization Type Myofascial Release Rolling Trigger Point Release Intensity/Depth Moderate Body Position Hooklying Manual Traction Cervical Details Cervical Manual traction Body Position Hooklying Comments gentle PT-OP-R Modalities Start: 02/27/19 13:04 Freq: Status: Active Protocol: Document 02/27/19 09:02 [facility] (Rec: 02/27/19 13:05 [facility] [id number]) Electric Stimulation Electric Stimulation IFES Body Location chiki c/s and UT Duration (Minutes) 15 Intensity 6 Target/Sweep Sweep Patient Position Hooklying Combined With Heat/Cold Hot Pack Spinal Traction Traction Treatment Cervical Method Mechanical Static Patient Position Hooklying Force Applied (Pounds) 8 Duration of Treatment (Minutes) 10 Heating Pad Applied MH and IFES prior Traction Treatment Comment ice pack x 10 min after treatment. PT-OP-T Assessment and Plan Start: 02/14/19 08:19 Freq: Status: Active Protocol: Document 02/27/19 09:02 [facility] (Rec: 02/27/19 09:21 [facility] [id number]) Physical Therapy Assessment Goals Three Short Term Goal (STG) Pt to report centralization of radicular symptoms in LUE and improved space operations officer strength (LUE comparable to RUE) so that she is able to open jars and manipulate object. STG Duration 6 weeks Tobacco Grader Goal (LTG) Neck disability inventory (NDI ) to improve by 10%, demonstrating an improvement in ability to perform recreational and daily activities without limitations due to neck pain. LTG Duration 10-12 weeks Two STG Duration ROM Tobacco Grader Goal (LTG) Cervical ROM for R rotation to be comparable to L rotation for improved functional mobility and less neck stiffness with driving. LTG Duration 10-12 weeks One Impairment HEP Short Term Goal (STG) Pt to be independent with prescribed HEP to maximize rehabilitation potential outside of formal PT sessions. STG Duration 4 weeks Tobacco Grader Goal (LTG) Pt to report a reduction in the frequency of daily headaches so that she is able to sleep throughout the night and engage in daily activities . LTG Duration 10-12 weeks Assessment Summary Assessment Reported decreased pain with IFES with MH. States CTX initially felt good but residential through felt increased tingling left UE. Negative neural tension tests. Patient was issued information on TENS units for possible purchase. Also given information on home CTx unit and was made aware insurance no longer pays for either. Physical Therapy Plan Frequency and Duration Frequency of Treatment 1-2x/week Duration of Treatment 10-12 weeks Plan of Care Start Date 02/14/19 Plan of Care End Date 05/10/19 Next Visit Focus/Plan Next Note Type Treatment Note Next Visit Plan Evaluate response to today's session. Increase flexion angle for cervical traction.
--- NOTE | 2019-03-06 16:23 | PT.OTN ---
Current Diagnoses Radiculopathy, cervical region (03/06/19) Physical Therapy Treatment Note PT-OP-A Visit Information Start: 02/14/19 08:19 Freq: Status: Active Protocol: Document 03/06/19 16:12 SAK (Rec: 03/06/19 16:21 SAK [id number]) Out-Patient Physical Therapy Visit Information Visit Information Visit Type Treatment Note Visit Start Time 15:15 Visit Stop Time 16:10 Total Visit Minutes 55 Visit Number 5 Number of DEVELOPER PROVER UPHOLSTERING Visits 0 Evaluation Information Evaluation Date 02/14/19 PT-OP-B Current Condition Start: 02/14/19 08:19 Freq: Status: Active Protocol: Document 02/14/19 08:21 BS (Rec: 02/14/19 08:25 BS [id number]) Current Condition History of Current Condition Onset Date 10/10/18 Current Complaints Neck pain with LUE numbness/ tingling, headache History of Current Condition Pt complains of neck pain, sharp shooting headaches and LUE numbness and tingling currently extending down to the palmar surface of the hand with no specific nerve distribution. This all began on 10/10/18 when pt experienced entire LUE numbness beginning in her L hand and gradually progressing to her shoulder and neck. Pt also states she had a headache, chest pain, and that her HR and BP was high. She went to the ED and reports all testing including chest xray were negative for cardiopulmonary involvement. Pt states that she continued to have constant LUE numbness for 3 weeks and that since then it has mostly localized to L hand limiting her ability to complete fine motor tasks. Pt reports neck pain as moderate and tolerable but that LUE numbness/tingling and daily sharp shooting electrical shock-like L sided HAs are of concern to her. Pt reports CALIX frequency of 3-6 per day lasting 10-15 minutes. She takes up to 4 ibuprofen/ day which relieves her HAs. Pt has had an MRI of cervical spine and brain, and NCV test all within the last month. Pt is R hand dominant. Prior Treatments and Tests VNCV 02/13/19:awaiting results Cervical MRI (01/14/19): multilevel degenerative changes and mild disc bulges Brain MRI (01/14/19): multiple foci of white matter lesions bilaterally, mild cerebral volume loss Chest Xray 12/5/18: negative per pt report tirn nerve sheath thumb side. 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 Hearing loss with use of hearing aids. Treatment Goals Patient/Caregiver Goals get rid of numbness/tingling reduce daily headaches Prior Functional Status Baseline Function- ADL's Independent Baseline Function- Mobility Independent Baseline Function- Gait Independent Baseline Function- Work/School Independent. Pt is currently retired. Enjoys mission work in [facility]. Baseline Function- Recreation/Hobbies Independent Baseline Function- Other Independent with all daily and recreational activities. Current Functional Impairments (Reported) Functional Limitations- ADL's unable to complete ADLs requiring manipulation of objects and fine motor control of L hand. Difficulty sleeping at night due to HAs and numbness/ tingling in LUE. Functional Limitations- Mobility/Gait Difficulty opening jars, carrying bags, preparing/ cutting food, and neck pain with driving. Pt ambulated with normal gait mechanics and without use of AD. Personal Factors Other Personal Factors That May Effect multilevel degenerative Therapy/Recovery changes of cervical spine PT-OP-C Subjective Start: 02/14/19 08:19 Freq: Status: Active Protocol: Document 03/06/19 16:12 SAK (Rec: 03/06/19 16:23 SAK [id number]) OP-PT Subjective Patient Comments Patient Comments Ordered own TENS, has not tried at home yet. Wants PT to jassi on skin where to put electrodes for home use . Agreeable to try traction at different angle today. PT-OP-F Manual Assessment Start: 02/14/19 08:19 Freq: Status: Active Protocol: Document 02/14/19 08:21 BS (Rec: 02/15/19 08:15 BS [id number]) Manual Assessments Soft Tissue Assessment Soft Tissue Mobility Assessment Tightness of bilateral upper traps, tenderness to palpation of L suboccipitals. Joint Mobility Assessment Joint Mobility Assessment Hypomobility with central and unilateral PAs from C3-C7. PT-OP-G Mobility & Gait Start: 02/14/19 08:19 Freq: Status: Active Protocol: Document 02/14/19 08:21 BS (Rec: 02/15/19 08:15 BS [id number]) OP Mobility Evaluation Bed Mobility Supine to and from Sit Independent Transfers Sit to Stand Independent Bed to Chair Transfers Independent OP Gait Assessment Gait Gait Assistance Required: Independent Able to Maintain Weight Bearing Status Yes During Gait Assistive Devices Assistive Device None PT-OP-J Posture/Palpation/Skin Start: 02/14/19 08:19 Freq: Status: Active Protocol: Document 02/14/19 08:21 BS (Rec: 02/15/19 08:15 BS [id number]) Posture Evaluation Position Sitting Head/C-Spine Posture Forward Head Shoulder Posture (L) Rounded (R) Rounded Palpation Assessment Location One Palpation Location Cervical Palpation Findings Soft Tissue Tightness Palpation Details Bilateral upper traps, suboccipitals PT-OP-K Range of Motion Start: 02/14/19 08:19 Freq: Status: Active Protocol: Document 02/14/19 08:21 BS (Rec: 02/15/19 08:15 BS [id number]) Cervical Spine Range of Motion Cervical Spine Active Testing Position Sitting Flexion 40 Extension 25 Rotation Left 72 Rotation Right 45 Lateral Flexion Left 35 Lateral Flexion Right 30 Comments No pain or radicular symptoms with AROM today although pt states she occasionally has dizziness with cervical extension. Limited especially with R rotation. PT-OP-L Special Tests Start: 02/14/19 08:19 Freq: Status: Active Protocol: Document 02/14/19 08:21 BS (Rec: 02/15/19 14:22 BS [id number]) Special Tests Neural Special Tests- Upper Body Other- 1 Test Results Negative Comments Neural tension tests for median, ulnar, radial N negative for radicular symptom reproduction. PT-OP-M Strength Start: 02/14/19 08:19 Freq: Status: Active Protocol: Document 02/18/19 08:00 AMB (Rec: 02/18/19 12:44 AMB [id number]) Shoulder Strength Shoulder Manual Muscle Testing Right Flexion 4 Good Extension 5 Normal Abduction (C5) 4 Good Adduction 5 Normal External Rotation 5 Normal Left Flexion 4- Good- Extension 5 Normal Abduction (C5) 4- Good- External Rotation 5 Normal Internal Rotation 5 Normal PT-OP-Q Treatments Start: 02/14/19 08:19 Freq: Status: Active Protocol: Document 03/06/19 16:12 SAK (Rec: 03/06/19 16:21 SAK [id number]) Therapeutic Exercises Supine Exercises 3 Supine Exercise Name Pec Stretch Comments after 10 reps active hor ab/ad , then end-range stretch 2 Supine Exercise Name chin tuck Reps/Minutes 5x10 Comments focus on lengthen post neck 1 Supine Exercise Name serratus punch Resistance AROM Reps/Minutes 10 Sitting Exercises 3 Sitting Exercise Name Chin Tuck Reps/Minutes 2 x 10 Comments VCs for correct technique. Manual Therapy Treatment Soft Tissue Mobilization 2 Body Location Suboccipitals Mobilization Type Rolling Intensity/Depth Moderate Body Position Hooklying 1 Body Location Upper traps Mobilization Type Myofascial Release Rolling Trigger Point Release Intensity/Depth Moderate Body Position Hooklying Manual Traction Cervical Details Cervical Manual traction Body Position Hooklying Comments gentle PT-OP-R Modalities Start: 02/27/19 13:04 Freq: Status: Active Protocol: Document 03/06/19 16:12 [facility] (Rec: 03/06/19 16:21 [facility] [id number]) Electric Stimulation Electric Stimulation IFES Body Location chiki c/s and UT Duration (Minutes) 15 Intensity 6 Target/Sweep Sweep Patient Position Hooklying Combined With Heat/Cold Hot Pack Spinal Traction Traction Treatment Cervical Method Mechanical Static Patient Position Hooklying Force Applied (Pounds) 8 Duration of Treatment (Minutes) 10 Heating Pad Applied MH and IFES prior Traction Treatment Comment ice pack x 10 min after treatment. PT-OP-T Assessment and Plan Start: 02/14/19 08:19 Freq: Status: Active Protocol: Document 03/06/19 16:12 [facility] (Rec: 03/06/19 16:21 [facility] [id number]) Physical Therapy Assessment Goals Three Short Term Goal (STG) Pt to report centralization of radicular symptoms in LUE and improved pony trimmer strength (LUE comparable to RUE) so that she is able to open jars and manipulate object. STG Duration 6 weeks [employer] Goal (LTG) Neck disability inventory (NDI ) to improve by 10%, demonstrating an improvement in ability to perform recreational and daily activities without limitations due to neck pain. LTG Duration 10-12 weeks Two STG Duration ROM Group Home Goal (LTG) Cervical ROM for R rotation to be comparable to L rotation for improved functional mobility and less neck stiffness with driving. LTG Duration 10-12 weeks One Impairment HEP Short Term Goal (STG) Pt to be independent with prescribed HEP to maximize rehabilitation potential outside of formal PT sessions. STG Duration 4 weeks [employer] Goal (LTG) Pt to report a reduction in the frequency of daily headaches so that she is able to sleep throughout the night and engage in daily activities . LTG Duration 10-12 weeks Assessment Summary Assessment Patient continues to have pain with radicular symptoms, best response is to heat with IFES , has obtained own TENS but not tried yet; put hammer on skin for to assist in electrode placement. Physical Therapy Plan Frequency and Duration Frequency of Treatment 1-2x/week Duration of Treatment 10-12 weeks Plan of Care Start Date 02/14/19 Plan of Care End Date 05/10/19 Next Visit Focus/Plan Next Note Type Treatment Note Next Visit Plan Evaluate response to today's session with increased angle of traction. Patient to contact physician to discuss possible referral to surgeon for consult.
--- NOTE | 2019-03-08 15:19 | PT.OTN ---
Current Diagnoses Radiculopathy, cervical region (03/08/19) Physical Therapy Treatment Note PT-OP-A Visit Information Start: 02/14/19 08:19 Freq: Status: Active Protocol: Document 03/08/19 15:11 SAK (Rec: 03/08/19 15:19 SAK [id number]) Out-Patient Physical Therapy Visit Information Visit Information Visit Type Treatment Note Visit Start Time 08:15 Visit Stop Time 09:00 Total Visit Minutes 55 Visit Number 6 Number of WATCH REPAIRER Visits 0 Evaluation Information Evaluation Date 02/14/19 PT-OP-B Current Condition Start: 02/14/19 08:19 Freq: Status: Active Protocol: Document 02/14/19 08:21 BS (Rec: 02/14/19 08:25 BS [id number]) Current Condition History of Current Condition Onset Date 10/10/18 Current Complaints Neck pain with LUE numbness/ tingling, headache History of Current Condition Pt complains of neck pain, sharp shooting headaches and LUE numbness and tingling currently extending down to the palmar surface of the hand with no specific nerve distribution. This all began on 10/10/18 when pt experienced entire LUE numbness beginning in her L hand and gradually progressing to her shoulder and neck. Pt also states she had a headache, chest pain, and that her HR and BP was high. She went to the ED and reports all testing including chest xray were negative for cardiopulmonary involvement. Pt states that she continued to have constant LUE numbness for 3 weeks and that since then it has mostly localized to L hand limiting her ability to complete fine motor tasks. Pt reports neck pain as moderate and tolerable but that LUE numbness/tingling and daily sharp shooting electrical shock-like L sided HAs are of concern to her. Pt reports CALIX frequency of 3-6 per day lasting 10-15 minutes. She takes up to 4 ibuprofen/ day which relieves her HAs. Pt has had an MRI of cervical spine and brain, and NCV test all within the last month. Pt is R hand dominant. Prior Treatments and Tests VNCV 02/13/19:awaiting results Cervical MRI (01/14/19): multilevel degenerative changes and mild disc bulges Brain MRI (01/14/19): multiple foci of white matter lesions bilaterally, mild cerebral volume loss Chest Xray 12/5/18: negative per pt report tirn nerve sheath thumb side. 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 Hearing loss with use of hearing aids. Treatment Goals Patient/Caregiver Goals get rid of numbness/tingling reduce daily headaches Prior Functional Status Baseline Function- ADL's Independent Baseline Function- Mobility Independent Baseline Function- Gait Independent Baseline Function- Work/School Independent. Pt is currently retired. 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 Baseline Function- Recreation/Hobbies Independent Baseline Function- Other Independent with all daily and recreational activities. Current Functional Impairments (Reported) Functional Limitations- ADL's unable to complete ADLs requiring manipulation of objects and fine motor control of L hand. Difficulty sleeping at night due to HAs and numbness/ tingling in LUE. Functional Limitations- Mobility/Gait Difficulty opening jars, carrying bags, preparing/ cutting food, and neck pain with driving. Pt ambulated with normal gait mechanics and without use of AD. Personal Factors Other Personal Factors That May Effect multilevel degenerative Therapy/Recovery changes of cervical spine PT-OP-C Subjective Start: 02/14/19 08:19 Freq: Status: Active Protocol: Document 03/08/19 15:11 SAK (Rec: 03/08/19 15:19 SAK [id number]) OP-PT Subjective Patient Comments Patient Comments Brought TENS today for training, present. States she had a headache when she left PT last session. Only relief she has had so far has been with IFES PT-OP-F Manual Assessment Start: 02/14/19 08:19 Freq: Status: Active Protocol: Document 02/14/19 08:21 BS (Rec: 02/15/19 08:15 BS [id number]) Manual Assessments Soft Tissue Assessment Soft Tissue Mobility Assessment Tightness of bilateral upper traps, tenderness to palpation of L suboccipitals. Joint Mobility Assessment Joint Mobility Assessment Hypomobility with central and unilateral PAs from C3-C7. PT-OP-G Mobility & Gait Start: 02/14/19 08:19 Freq: Status: Active Protocol: Document 02/14/19 08:21 BS (Rec: 02/15/19 08:15 BS [id number]) OP Mobility Evaluation Bed Mobility Supine to and from Sit Independent Transfers Sit to Stand Independent Bed to Chair Transfers Independent OP Gait Assessment Gait Gait Assistance Required: Independent Able to Maintain Weight Bearing Status Yes During Gait Assistive Devices Assistive Device None PT-OP-J Posture/Palpation/Skin Start: 02/14/19 08:19 Freq: Status: Active Protocol: Document 02/14/19 08:21 BS (Rec: 02/15/19 08:15 BS [id number]) Posture Evaluation Position Sitting Head/C-Spine Posture Forward Head Shoulder Posture (L) Rounded (R) Rounded Palpation Assessment Location One Palpation Location Cervical Palpation Findings Soft Tissue Tightness Palpation Details Bilateral upper traps, suboccipitals PT-OP-K Range of Motion Start: 02/14/19 08:19 Freq: Status: Active Protocol: Document 02/14/19 08:21 BS (Rec: 02/15/19 08:15 BS [id number]) Cervical Spine Range of Motion Cervical Spine Active Testing Position Sitting Flexion 40 Extension 25 Rotation Left 72 Rotation Right 45 Lateral Flexion Left 35 Lateral Flexion Right 30 Comments No pain or radicular symptoms with AROM today although pt states she occasionally has dizziness with cervical extension. Limited especially with R rotation. PT-OP-L Special Tests Start: 02/14/19 08:19 Freq: Status: Active Protocol: Document 02/14/19 08:21 BS (Rec: 02/15/19 14:22 BS [id number]) Special Tests Neural Special Tests- Upper Body Other- 1 Test Results Negative Comments Neural tension tests for median, ulnar, radial N negative for radicular symptom reproduction. PT-OP-M Strength Start: 02/14/19 08:19 Freq: Status: Active Protocol: Document 02/18/19 08:00 AMB (Rec: 02/18/19 12:44 AMB [id number]) Shoulder Strength Shoulder Manual Muscle Testing Right Flexion 4 Good Extension 5 Normal Abduction (C5) 4 Good Adduction 5 Normal External Rotation 5 Normal Left Flexion 4- Good- Extension 5 Normal Abduction (C5) 4- Good- External Rotation 5 Normal Internal Rotation 5 Normal PT-OP-Q Treatments Start: 02/14/19 08:19 Freq: Status: Active Protocol: Document 03/08/19 15:11 SAK (Rec: 03/08/19 15:19 SAK [id number]) Therapeutic Exercises Supine Exercises posture press Reps/Minutes 5x 4 Supine Exercise Name triangle stretch Reps/Minutes 2x30 3 Supine Exercise Name Pec Stretch Comments after 10 reps active hor ab/ad , then end-range stretch 2 Supine Exercise Name chin tuck Reps/Minutes 5x10 Comments focus on lengthen post neck Standing Exercises posture walk Equipment Used beanbag on head Reps/Minutes 2 min posture weight shift Reps/Minutes 5x Comments from contact on wall, pull away wall posture Reps/Minutes 6x Comments verbal and manual cues, picture taken by for visual feedback Self-Care/Home Management Treatment Education Patient Education Body Mechanics Home Exercise Program Posture Caregiver Education TENS use Other Education TENS use PT-OP-R Modalities Start: 02/27/19 13:04 Freq: Status: Active Protocol: Document 03/08/19 15:11 [facility] (Rec: 03/08/19 15:19 [facility] [id number]) Electric Stimulation Electric Stimulation IFES Body Location chiki c/s and UT Duration (Minutes) 15 Intensity 6 Target/Sweep Sweep Patient Position Hooklying Combined With Heat/Cold Hot Pack PT-OP-T Assessment and Plan Start: 02/14/19 08:19 Freq: Status: Active Protocol: Document 03/08/19 15:11 [facility] (Rec: 03/08/19 15:19 [facility] [id number]) Physical Therapy Assessment Goals Three Short Term Goal (STG) Pt to report centralization of radicular symptoms in LUE and improved parking enforcer strength (LUE comparable to RUE) so that she is able to open jars and manipulate object. STG Duration 6 weeks [place] Goal (LTG) Neck disability inventory (NDI ) to improve by 10%, demonstrating an improvement in ability to perform recreational and daily activities without limitations due to neck pain. LTG Duration 10-12 weeks Two STG Duration ROM Halfway Goal (LTG) Cervical ROM for R rotation to be comparable to L rotation for improved functional mobility and less neck stiffness with driving. LTG Duration 10-12 weeks One Impairment HEP Short Term Goal (STG) Pt to be independent with prescribed HEP to maximize rehabilitation potential outside of formal PT sessions. STG Duration 4 weeks [employer] Goal (LTG) Pt to report a reduction in the frequency of daily headaches so that she is able to sleep throughout the night and engage in daily activities . LTG Duration 10-12 weeks Assessment Summary Assessment No benefit from mechanical traction. Patient and demonstrated good understanding of use of TENS unit at home, wore during ther ex in PT session today with good tolerance . Physical Therapy Plan Frequency and Duration Frequency of Treatment 1-2x/week Duration of Treatment 10-12 weeks Plan of Care Start Date 02/14/19 Plan of Care End Date 05/10/19 Next Visit Focus/Plan Next Note Type Treatment Note Next Visit Plan Continue postural retraining, stabilization, patient ed, manual therapy and modalities as needed for pain and symptom management.
--- NOTE | 2019-03-12 15:44 | PT.OTN ---
Current Diagnoses Radiculopathy, cervical region (03/12/19) Physical Therapy Treatment Note PT-OP-A Visit Information Start: 02/14/19 08:19 Freq: Status: Active Protocol: Document 03/12/19 14:30 BS (Rec: 03/12/19 14:34 BS [email or web address]) Out-Patient Physical Therapy Visit Information Visit Information Visit Type Treatment Note Visit Start Time 13:00 Visit Stop Time 13:45 Total Visit Minutes 45 Visit Number 7 Number of STUFFED CASING TIER Visits 0 Evaluation Information Evaluation Date 02/14/19 PT-OP-B Current Condition Start: 02/14/19 08:19 Freq: Status: Active Protocol: Document 02/14/19 08:21 BS (Rec: 02/14/19 08:25 BS [id number]) Current Condition History of Current Condition Onset Date 10/10/18 Current Complaints Neck pain with LUE numbness/ tingling, headache History of Current Condition Pt complains of neck pain, sharp shooting headaches and LUE numbness and tingling currently extending down to the palmar surface of the hand with no specific nerve distribution. This all began on 10/10/18 when pt experienced entire LUE numbness beginning in her L hand and gradually progressing to her shoulder and neck. Pt also states she had a headache, chest pain, and that her HR and BP was high. She went to the ED and reports all testing including chest xray were negative for cardiopulmonary involvement. Pt states that she continued to have constant LUE numbness for 3 weeks and that since then it has mostly localized to L hand limiting her ability to complete fine motor tasks. Pt reports neck pain as moderate and tolerable but that LUE numbness/tingling and daily sharp shooting electrical shock-like L sided HAs are of concern to her. Pt reports CALIX frequency of 3-6 per day lasting 10-15 minutes. She takes up to 4 ibuprofen/ day which relieves her HAs. Pt has had an MRI of cervical spine and brain, and NCV test all within the last month. Pt is R hand dominant. Prior Treatments and Tests VNCV 02/13/19:awaiting results Cervical MRI (01/14/19): multilevel degenerative changes and mild disc bulges Brain MRI (01/14/19): multiple foci of white matter lesions bilaterally, mild cerebral volume loss Chest Xray 10/10/18: negative per pt report tirn nerve sheath thumb side. 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 Hearing loss with use of hearing aids. Treatment Goals Patient/Caregiver Goals get rid of numbness/tingling reduce daily headaches Prior Functional Status Baseline Function- ADL's Independent Baseline Function- Mobility Independent Baseline Function- Gait Independent Baseline Function- Work/School Independent. Pt is currently retired. Enjoys mission work in [facility]. Baseline Function- Recreation/Hobbies Independent Baseline Function- Other Independent with all daily and recreational activities. Current Functional Impairments (Reported) Functional Limitations- ADL's unable to complete ADLs requiring manipulation of objects and fine motor control of L hand. Difficulty sleeping at night due to HAs and numbness/ tingling in LUE. Functional Limitations- Mobility/Gait Difficulty opening jars, carrying bags, preparing/ cutting food, and neck pain with driving. Pt ambulated with normal gait mechanics and without use of AD. Personal Factors Other Personal Factors That May Effect multilevel degenerative Therapy/Recovery changes of cervical spine PT-OP-C Subjective Start: 02/14/19 08:19 Freq: Status: Active Protocol: Document 03/12/19 14:30 BS (Rec: 03/12/19 14:34 BS [email or web address]) OP-PT Subjective Patient Comments Patient Comments Pt reports that her home TENS unit has been helping her manage her neck pain. Continues to have L sided headaches and some N/T into UEs with L>R. She states that she has been more aware of posture and was only sore in low back after last session. PT-OP-F Manual Assessment Start: 02/14/19 08:19 Freq: Status: Active Protocol: Document 02/14/19 08:21 BS (Rec: 02/15/19 08:15 BS [id number]) Manual Assessments Soft Tissue Assessment Soft Tissue Mobility Assessment Tightness of bilateral upper traps, tenderness to palpation of L suboccipitals. Joint Mobility Assessment Joint Mobility Assessment Hypomobility with central and unilateral PAs from C3-C7. PT-OP-G Mobility & Gait Start: 02/14/19 08:19 Freq: Status: Active Protocol: Document 02/14/19 08:21 BS (Rec: 02/15/19 08:15 BS [id number]) OP Mobility Evaluation Bed Mobility Supine to and from Sit Independent Transfers Sit to Stand Independent Bed to Chair Transfers Independent OP Gait Assessment Gait Gait Assistance Required: Independent Able to Maintain Weight Bearing Status Yes During Gait Assistive Devices Assistive Device None PT-OP-J Posture/Palpation/Skin Start: 02/14/19 08:19 Freq: Status: Active Protocol: Document 02/14/19 08:21 BS (Rec: 02/15/19 08:15 BS [id number]) Posture Evaluation Position Sitting Head/C-Spine Posture Forward Head Shoulder Posture (L) Rounded (R) Rounded Palpation Assessment Location One Palpation Location Cervical Palpation Findings Soft Tissue Tightness Palpation Details Bilateral upper traps, suboccipitals PT-OP-K Range of Motion Start: 02/14/19 08:19 Freq: Status: Active Protocol: Document 02/14/19 08:21 BS (Rec: 02/15/19 08:15 BS [id number]) Cervical Spine Range of Motion Cervical Spine Active Testing Position Sitting Flexion 40 Extension 25 Rotation Left 72 Rotation Right 45 Lateral Flexion Left 35 Lateral Flexion Right 30 Comments No pain or radicular symptoms with AROM today although pt states she occasionally has dizziness with cervical extension. Limited especially with R rotation. PT-OP-L Special Tests Start: 02/14/19 08:19 Freq: Status: Active Protocol: Document 02/14/19 08:21 BS (Rec: 02/15/19 14:22 BS [id number]) Special Tests Neural Special Tests- Upper Body Other- 1 Test Results Negative Comments Neural tension tests for median, ulnar, radial N negative for radicular symptom reproduction. PT-OP-M Strength Start: 02/14/19 08:19 Freq: Status: Active Protocol: Document 02/18/19 08:00 AMB (Rec: 02/18/19 12:44 AMB [email or web address]) Shoulder Strength Shoulder Manual Muscle Testing Right Flexion 4 Good Extension 5 Normal Abduction (C5) 4 Good Adduction 5 Normal External Rotation 5 Normal Left Flexion 4- Good- Extension 5 Normal Abduction (C5) 4- Good- External Rotation 5 Normal Internal Rotation 5 Normal PT-OP-Q Treatments Start: 02/14/19 08:19 Freq: Status: Active Protocol: Document 03/12/19 14:30 BS (Rec: 03/12/19 14:34 BS [email or web address]) Therapeutic Exercises Supine Exercises 3 Supine Exercise Name Pec Stretch Equipment Used half foam roll Reps/Minutes overpressure at B shoulders Comments after 10 reps active hor ab/ad , then end-range stretch 2 Supine Exercise Name chin tuck with wall posture Reps/Minutes 5 x8 Comments TCs for correct position suki avoid hinging Standing Exercises 4 Standing Exercise Name Scapular Retraction Equipment Used #1 band, no resistance Reps/Minutes x8, x8 Comments VCs and TCs for correct form. Focus on good posture. 3 Standing Exercise Name Lat pulldowns Equipment Used #1 band Reps/Minutes x8 Comments VCs for cervical retraction. 2 Standing Exercise Name Diaphragmatic Breathing Reps/Minutes x10 Comments hooklying, visual cues with kleenex box on stomach 1 Standing Exercise Name Diaphragmatic breathing Equipment Used wall for good posture Reps/Minutes x15 deep breaths Comments VCs, TCs to avoid upper chest breathing with good wall posture wall posture Reps/Minutes 5x Comments Verbal and Tactile cues to attain correct posture Self-Care/Home Management Treatment Education Patient Education Body Mechanics Posture Other Education Education regarding MRI results with use of spine model to explain radicular symptoms into UEs. PT-OP-R Modalities Start: 02/27/19 13:04 Freq: Status: Active Protocol: Document 03/08/19 15:11 SAK (Rec: 03/08/19 15:19 SAK [id number]) Electric Stimulation Electric Stimulation IFES Body Location chiki c/s and UT Duration (Minutes) 15 Intensity 6 Target/Sweep Sweep Patient Position Hooklying Combined With Heat/Cold Hot Pack PT-OP-T Assessment and Plan Start: 02/14/19 08:19 Freq: Status: Active Protocol: Document 03/12/19 14:30 BS (Rec: 03/12/19 15:38 BS [email or web address]) Physical Therapy Assessment Goals Three Short Term Goal (STG) Pt to report centralization of radicular symptoms in LUE and improved bulk sugar handler strength (LUE comparable to RUE) so that she is able to open jars and manipulate object. STG Duration 6 weeks Fdc Goal (LTG) Neck disability inventory (NDI ) to improve by 10%, demonstrating an improvement in ability to perform recreational and daily activities without limitations due to neck pain. LTG Duration 10-12 weeks Two STG Duration ROM Ball Fringe Machine Operator Goal (LTG) Cervical ROM for R rotation to be comparable to L rotation for improved functional mobility and less neck stiffness with driving. LTG Duration 10-12 weeks One Impairment HEP Short Term Goal (STG) Pt to be independent with prescribed HEP to maximize rehabilitation potential outside of formal PT sessions. STG Duration 4 weeks Ball Fringe Machine Operator Goal (LTG) Pt to report a reduction in the frequency of daily headaches so that she is able to sleep throughout the night and engage in daily activities . LTG Duration 10-12 weeks Assessment Summary Assessment Pt has been paying more attention to her posture throughout the day and is working to make changes to home desk setup. Continued to work on posture with postural education and diaphragmatic breathing today as pt tends to breath with upper chest and cervical accessory muscles. Light postural strengthening today with few reps, pt reports that she feels foggy in the head and sometimes has trouble finding words. She is in the process of scheduling apt with orthopedist to consult about surgical options or injections. Physical Therapy Plan Frequency and Duration Frequency of Treatment 1-2x/week Duration of Treatment 10-12 weeks Plan of Care Start Date 02/14/19 Plan of Care End Date 05/10/19 Next Visit Focus/Plan Next Note Type Treatment Note Next Visit Plan Assess pt ability to attain correct postural position and diaphragmatic breathing. Light postural strengthening.
--- NOTE | 2019-06-03 07:44 | PT.OPDS ---
Current Diagnoses Radiculopathy, cervical region (03/12/19) Provider Visit Care Team Role Provider Type Rebeca Sawant MD Primary Care Provider Physician Specialty: Internal Medicine Address: [address] [place] [address], [id number] Email: Madeline Escobedo MD Attending Provider Non-Staff Specialty: Neurology Address: [address] [place], [address] Email: Visit Number Visit Number 7 Discharge Summary PT-OP-B Current Condition Start: 02/14/19 08:19 Freq: Status: Active Protocol: Document 02/14/19 08:21 BS (Rec: 02/14/19 08:25 BS [id number]) Current Condition History of Current Condition Onset Date 10/10/18 Current Complaints Neck pain with LUE numbness/ tingling, headache History of Current Condition Pt complains of neck pain, sharp shooting headaches and LUE numbness and tingling currently extending down to the palmar surface of the hand with no specific nerve distribution. This all began on 10/10/18 when pt experienced entire LUE numbness beginning in her L hand and gradually progressing to her shoulder and neck. Pt also states she had a headache, chest pain, and that her HR and BP was high. She went to the ED and reports all testing including chest xray were negative for cardiopulmonary involvement. Pt states that she continued to have constant LUE numbness for 3 weeks and that since then it has mostly localized to L hand limiting her ability to complete fine motor tasks. Pt reports neck pain as moderate and tolerable but that LUE numbness/tingling and daily sharp shooting electrical shock-like L sided HAs are of concern to her. Pt reports CALIX frequency of 3-6 per day lasting 10-15 minutes. She takes up to 4 ibuprofen/ day which relieves her HAs. Pt has had an MRI of cervical spine and brain, and NCV test all within the last month. Pt is R hand dominant. Prior Treatments and Tests VNCV 02/13/19:awaiting results Cervical MRI (01/14/19): multilevel degenerative changes and mild disc bulges Brain MRI (01/14/19): multiple foci of white matter lesions bilaterally, mild cerebral volume loss Chest Xray 10/10/18: negative per pt report tirn nerve sheath thumb side. 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 Hearing loss with use of hearing aids. Treatment Goals Patient/Caregiver Goals get rid of numbness/tingling reduce daily headaches Prior Functional Status Baseline Function- ADL's Independent Baseline Function- Mobility Independent Baseline Function- Gait Independent Baseline Function- Work/School Independent. Pt is currently retired. 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 Baseline Function- Recreation/Hobbies Independent Baseline Function- Other Independent with all daily and recreational activities. Current Functional Impairments (Reported) Functional Limitations- ADL's unable to complete ADLs requiring manipulation of objects and fine motor control of L hand. Difficulty sleeping at night due to HAs and numbness/ tingling in LUE. Functional Limitations- Mobility/Gait Difficulty opening jars, carrying bags, preparing/ cutting food, and neck pain with driving. Pt ambulated with normal gait mechanics and without use of AD. Personal Factors Other Personal Factors That May Effect multilevel degenerative Therapy/Recovery changes of cervical spine PT-OP-C Subjective Start: 02/14/19 08:19 Freq: Status: Active Protocol: Document 03/12/19 14:30 BS (Rec: 03/12/19 14:34 BS [email or web address]) OP-PT Subjective Patient Comments Patient Comments Pt reports that her home TENS unit has been helping her manage her neck pain. Continues to have L sided headaches and some N/T into UEs with L>R. She states that she has been more aware of posture and was only sore in low back after last session. PT-OP-F Manual Assessment Start: 02/14/19 08:19 Freq: Status: Active Protocol: Document 02/14/19 08:21 BS (Rec: 02/15/19 08:15 BS [id number]) Manual Assessments Soft Tissue Assessment Soft Tissue Mobility Assessment Tightness of bilateral upper traps, tenderness to palpation of L suboccipitals. Joint Mobility Assessment Joint Mobility Assessment Hypomobility with central and unilateral PAs from C3-C7. PT-OP-G Mobility & Gait Start: 02/14/19 08:19 Freq: Status: Active Protocol: Document 02/14/19 08:21 BS (Rec: 02/15/19 08:15 BS [id number]) OP Mobility Evaluation Bed Mobility Supine to and from Sit Independent Transfers Sit to Stand Independent Bed to Chair Transfers Independent OP Gait Assessment Gait Gait Assistance Required: Independent Able to Maintain Weight Bearing Status Yes During Gait Assistive Devices Assistive Device None PT-OP-J Posture/Palpation/Skin Start: 02/14/19 08:19 Freq: Status: Active Protocol: Document 02/14/19 08:21 BS (Rec: 02/15/19 08:15 BS [id number]) Posture Evaluation Position Sitting Head/C-Spine Posture Forward Head Shoulder Posture (L) Rounded (R) Rounded Palpation Assessment Location One Palpation Location Cervical Palpation Findings Soft Tissue Tightness Palpation Details Bilateral upper traps, suboccipitals PT-OP-K Range of Motion Start: 02/14/19 08:19 Freq: Status: Active Protocol: Document 02/14/19 08:21 BS (Rec: 02/15/19 08:15 BS [id number]) Cervical Spine Range of Motion Cervical Spine Active Testing Position Sitting Flexion 40 Extension 25 Rotation Left 72 Rotation Right 45 Lateral Flexion Left 35 Lateral Flexion Right 30 Comments No pain or radicular symptoms with AROM today although pt states she occasionally has dizziness with cervical extension. Limited especially with R rotation. PT-OP-L Special Tests Start: 02/14/19 08:19 Freq: Status: Active Protocol: Document 02/14/19 08:21 BS (Rec: 02/15/19 14:22 BS [id number]) Special Tests Neural Special Tests- Upper Body Other- 1 Test Results Negative Comments Neural tension tests for median, ulnar, radial N negative for radicular symptom reproduction. PT-OP-M Strength Start: 02/14/19 08:19 Freq: Status: Active Protocol: Document 02/18/19 08:00 AMB (Rec: 02/18/19 12:44 AMB [email or web address]) Shoulder Strength Shoulder Manual Muscle Testing Right Flexion 4 Good Extension 5 Normal Abduction (C5) 4 Good Adduction 5 Normal External Rotation 5 Normal Left Flexion 4- Good- Extension 5 Normal Abduction (C5) 4- Good- External Rotation 5 Normal Internal Rotation 5 Normal PT-OP-T Assessment and Plan Start: 02/14/19 08:19 Freq: Status: Active Protocol: Document 06/03/19 07:41 AMB (Rec: 06/03/19 07:44 AMB [email or web address]) Physical Therapy Assessment Assessment Summary Assessment Mona was last seen on March 12, since then she canceled her appointments as she was going to be seeing a surgeon. She unfortunately had an increase in symptoms with stretching and traction, her TENS unit was helfpul. She continued to get L sided headaches that were very bothersome. Since she has not been in to PT for over 2 months she is now discharged. Physical Therapy Plan Discharge Physical Therapy Discharge Reasons No Longer Attending PT
== END 2019-06-12 10:47 | disposition home or self-care (01) ==
LOC: PHYS 13:00
PROVIDERS: PCP Internal Medicine; Visit Provider Psychiatry & Neurology Neurology
DX: M54.12 Radiculopathy, cervical region (principal)
CPT/HCPCS: 97012; 97014; 97110; 97140; 97161; 97530; 97535; G0283

== ENCOUNTER → 2019-08-29 18:47 | Outpatient (ROUT) | payer MEDICARE, SELFPAY ==
[2019-08-29 18:57] LABS: Blood Urea Nitrogen 27 mg/dL (7-17); Estimated Glomerular Filt Rate > 60.0 mL/min (>60)
== END ==
PROVIDERS: PCP Internal Medicine; Visit Provider Internal Medicine
DX: R10.9 Unspecified abdominal pain (principal)
CPT/HCPCS: 82565; 84520

== ENCOUNTER → 2019-09-03 09:53 | Outpatient (CLI) | payer MEDICARE, SELFPAY ==
--- NOTE | 2019-09-03 10:14 | DI.CT.S_ITS ---
PROCEDURE: CT ABDOMEN PELVIS W CON INDICATIONS: Right sided abdominal pain TECHNIQUE: After the administration of oral and intravenous contrast, 5 mm thick sections acquired from the diaphragms to the symphysis. 5 mm thick coronal and sagittal reformats were performed. For radiation dose reduction, the following was used: automated exposure control, adjustment of mA and/or kV according to patient size. COMPARISON: None. FINDINGS: Image quality: Excellent. ABDOMEN: Lung bases: Lung bases are clear. Heart size is normal. Solid organs: Liver is normal in size and enhancement. Gallbladder is normal. Biliary system is non-dilated. Pancreas enhances normally. Spleen is normal in size and enhancement. No adrenal nodules. Kidneys are normal in size and enhancement, without hydronephrosis. There is trace renal pelviectasis bilaterally. Peritoneum and bowel: Stomach, small bowel, and colon loops are normal in caliber and wall thickness. No free fluid or air. Nodes and vessels: No retroperitoneal or mesenteric adenopathy. Aorta and inferior vena cava are normal in caliber. Miscellaneous: No ventral hernias. PELVIS: Genitourinary: Mild thickening in the right posterior bladder base. There is uroepithelial thickening and increased enhancement in the distal right ureter. Multiple surgical clips are present in the right pelvic sidewall. Miscellaneous: No inguinal hernias or adenopathy. Bones: No suspicious bony lesions. No vertebral body compression fractures. There is an intraosseous hemangioma in L1 vertebral body. Scoliosis and degenerative changes in lumbar spine. Left hip arthroplasty with metallic artifact partially obscure pelvis. IMPRESSION: 1. Uroepithelial thickening and increased enhancement in the distal right ureter and mild thickening of the right posterior bladder base. Recommend cystoscopy for further evaluation. 2. Mild renal pelvic ectasis bilaterally. No renal stones. Dictated by: Bobby Gan M.D. on 09/03/2019 at 16:34 Approved by: Bobby Gna M.D. on 09/03/2019 at 18:44
== END ==
PROVIDERS: PCP Internal Medicine; Visit Provider Internal Medicine
DX: R10.9 Unspecified abdominal pain (principal); D18.09 Hemangioma of other sites; M47.816 Spondylosis without myelopathy or radiculopathy, lumbar region; M41.9 Scoliosis, unspecified; Z96.642 Presence of left artificial hip joint
CPT/HCPCS: 74177; Q9967

== ENCOUNTER 2020-09-08 21:27 | Emergency (ER) | payer MEDICARE, SELFPAY ==
[2020-09-08 21:32] VITALS: BP 206/95; PULSE 78; RESP 15; TEMP 36.6; O2SAT 98; BMI 28.5
[2020-09-08 22:18] LABS: Add Manual Diff / Slide Review NO; Basophils Absolute Auto 100 /uL (0-100); Basophils Percent Auto 1.4 % (0-2); Eosinophils Absolute Auto 300 /uL (0-450); Eosinophils Percent Auto 4.6 % (2-4); Hematocrit 37.8 % (36-46); Hemoglobin 12.7 g/dL (12.0-16.0); Lymphocytes Absolute Auto 2500 /uL (1100-4500); Lymphocytes Percent Auto 38.2 % (25-40); Mean Corpuscular HGB Conc 33.5 % (30-36); Mean Corpuscular Hemoglobin 31.9 PG (26-34); Mean Corpuscular Volume 95.1 fL (80-100); Monocytes Absolute Auto 500 /uL (0-900); Monocytes Percent Auto 7.9 % (3-14); Neutrophils Absolute Auto 3100 /uL (1500-7000); Neutrophils Percent Auto 47.9 % (50-75); Platelet Count 227 X10^3/uL (150-400); Red Blood Cell Count 3.97 X10^6/uL (4.0-5.2); Red Cell Distribution Width 13.3 % (11.6-14.8); White Blood Cell Count 6.4 X10^3/uL (4.5-11.0)
[2020-09-08 22:28] LABS: Alanine Aminotransferase 15 IU/L (<35); Albumin 3.9 g/dL (3.5-5.0); Albumin Globulin Ratio 1.3 (1.0-2.8); Alkaline Phosphatase 56 U/L (38-126); Aspartate Aminotransferase 27 IU/L (14-36); BUN Creatinine Ratio 26.7 (6-22); Bilirubin Total 0.5 mg/dL (0.2-1.3); Blood Urea Nitrogen 27 mg/dL (7-17); Calcium 9.1 mg/dL (8.4-10.2); Carbon Dioxide 29 mmol/L (22-32); Chloride 104 mmol/L (98-107); Estimated Glomerular Filt Rate 53.6 mL/min (>60); Globulin 2.9 g/dL (1.7-4.1); Glucose 132 mg/dL (80-110); HEMOLYSIS < 15 (0-50); Potassium 3.7 mmol/L (3.4-5.1); Sodium 137 mmol/L (137-145); Total Protein 6.8 g/dL (6.3-8.2)
[2020-09-08 22:40] LABS: Erythrocyte Sedimentation Rate 9 MM/HR (0-20)
[2020-09-08 22:57] LABS: C-Reactive Protein Quant < 0.5 mg/dL (<1.0)
--- NOTE | 2020-09-08 23:27 | ED_ITS ---
HPI - Headache General Chief Complaint: Headache Stated Complaint: right side head pain/upper neck pain Time Seen by Provider: 09/08/20 23:04 Source: patient Mode of arrival: Ambulatory Limitations: no limitations History of Present Illness HPI Narrative: The patient complains of onset of headache today, she has bit emporal pain with right eye scotoma and slight blurred vision right eye. She denies recent illness. She has had no fever or chills. She has no URI symptoms. She has a history of migraines as a young adult, no ongoing history of migraines. There is a family history of migraines. She has been complaining of neck issues for 23 months. 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 Upon initial presentation of the neck problems, she had left hand numbness. She has no numbness or weakness in the upper extremities. She seems to have done well with the neck issues, the headache is relatively new. She has no history of hypertension. She has no chest pain or dyspnea. She has no a bdominal discomfort, nausea vomiting. Related Data Allergies Allergy/AdvReac Type Severity Reaction Status Date / Time INGREDIENT: NKDA - NO KNOWN Allergy Unknown Uncoded 02/14/18 12:53 DRUG ALLERGIES Meperidine AdvReac Unknown Uncoded 02/14/18 12:53 Review of Systems Review of Systems ROS Unobtainable: All systems reviewed & are unremarkable except as noted in HPI and below Constitutional Constitutional: Denies chills, Denies fever(s), Reports headache(s) and Denies weakness Eyes Comments: Right eye scotoma. Right blurred vision. ENT Ears, Nose, Mouth, and Throat: Reports as per HPI, Denies change in voice, Denies vertigo, Denies dizziness, Reports headache(s), Denies neck pain and Denies sore throat Cardiovascular Cardiovascular: Denies chest pain, Denies palpitations and Denies dyspnea Respiratory Respiratory: Denies cough and Denies dyspnea Gastrointestinal Gastrointestinal: Denies abdominal pain, Denies nausea and Denies vomiting Musculoskeletal Musculoskeletal: Denies back pain and Denies neck pain Integumentary/Breasts Skin/Breast: Denies pruritus, Denies erythema and Denies rash Neurologic Neurologic: Denies confusion, Denies vertigo, Denies dizziness, Reports headache(s) and Denies weakness Psychiatric Psychiatric: Denies anxiety and Denies confusion Endocrine Endocrine: Denies palpitations Patient History Medical History Cervical spine arthritis (Acute) GERD (gastroesophageal reflux disease) (Acute) Healthy adult (Acute) Social History Smoking Status: Never smoker alcohol intake: never substance use type: does not use Smoking Status: Never smoker alcohol intake frequency: holidays/special occasions only Substance Use Type: does not use Exam Initial Vital Signs Initial Vital Signs: Vital Signs Temperature 97.9 F 09/08/20 21:32 Pulse Rate 78 09/08/20 21:32 Respiratory Rate 15 09/08/20 21:32 Blood Pressure 206/95 H 09/08/20 21:32 Pulse Oximetry 98 09/08/20 21:32 Const General: cooperative and well developed Nutritional Appearance: well nourished [facility] Head: normocephalic, atraumatic, No temporal artery tenderness and other Ears: TM's normal bilaterally Face and sinus: normal facial exam and sinuses tender Mouth: oral mucosae normal Throat: posterior oropharynx normal Eyes General: appearance normal, both eyes and all related structures Eyelids: eyelids normal Conjunctivae: conjunctivae normal Sclera: sclerae normal Pupils: PERRL EOM: EOM intact bilaterally Other: No visual field cuts. Neck Other: No palpable tenderness or palpable abnormalities. Resp Effort & Inspection: normal respiratory effort and able to speak in complete sentences Auscultation: clear to auscultation bilaterally Cardio Rate: regular rate Rhythm: regular rhythm Heart Sounds: S1 normal, S2 normal, no click, no gallops, no murmurs and no rubs Pulses: normal peripheral pulses Skin General: no rashes or lesions noted Neuro General: patient alert, patient oriented x3, gait normal and no focal motor deficits Speech: speech normal Other: Sensory exam is intact Course Course Course Narrative: The patient's headache and scotoma has resolved with the Toradol. She feels normal now. Her head CT is normal. Her exam is consistent with a migraine headache. It is noted that her blood pressure is elevated. She says the blood pressure reading home is normally 110s to 160s. She is not on antihypertensive medications. Orders Ordered: ED Orders 09/08/20 22:05 CRP [C-Reactive Protein Quant] Stat Complete Blood Count AUTO DIFF Stat Comprehensive Metabolic Panel Stat Erythrocyte Sedimentation Rate Stat 09/08/20 23:37 CT head/brain wo con Stat Discontinued Medications Hydrocodone Bitart/Acetaminophen (Vicodin 5/325 Prepack) 1 bottle MISC SEEINSTR ONE Stop: 09/09/20 01:04 Ketorolac Tromethamine (Toradol) 15 mg IV NOW ONE Stop: 09/08/20 23:38 Last Admin: 09/08/20 23:51 Dose: 15 mg Documented by: ADALBERTO Vital Signs Vital signs: Vital Signs - 8 hr 09/08/20 21:32 09/09/20 00:24 09/09/20 00:30 Temperature 97.9 F Pulse Rate 78 66 62 Respiratory Rate 15 Blood Pressure 206/95 H 176/79 H 165/78 H Pulse Oximetry 98 98 95 MDM - Headache Lab Data Result diagrams: 09/08/20 22:05 09/08/20 22:05 Labs: Lab Results 09/08/20 09/08/20 09/08/20 Range/Units 22:05 22:05 22:05 WBC 6.4 (4.5-11.0) X10^3/uL RBC 3.97 L (4.0-5.2) X10^6/uL Hgb 12.7 (12.0-16.0) g/dL Hct 37.8 (36-46) % MCV 95.1 (80-100) fL MCH 31.9 (26-34) PG MCHC 33.5 (30-36) % RDW 13.3 (11.6-14.8) % Plt Count 227 (150-400) X10^3/uL Neut % (Auto) 47.9 L (50-75) % Lymph % (Auto) 38.2 (25-40) % [place] % (Auto) 7.9 (3-14) % Eos % (Auto) 4.6 H (2-4) % Baso % (Auto) 1.4 (0-2) % Neut # (Auto) 3100 (0392-1790) /uL Lymph # (Auto) 2500 (5403-7405) /uL [place] # (Auto) 500 (0-900) /uL Eos # (Auto) 300 (0-450) /uL Baso # (Auto) 100 (0-100) /uL ESR 9 (0-20) MM/HR Sodium 137 (137-145) mmol/L Potassium 3.7 (3.4-5.1) mmol/L Chloride 104 (98-107) mmol/L Carbon Dioxide 29 (22-32) mmol/L BUN 27 H (7-17) mg/dL Creatinine 1.01 (0.52-1.04) mg/dL Estimated GFR 53.6 L (>60) mL/min BUN/Creatinine Ratio 26.7 H (6-22) Glucose 132 H (80-110) mg/dL Calcium 9.1 (8.4-10.2) mg/dL Total Bilirubin 0.5 (0.2-1.3) mg/dL AST 27 (14-36) IU/L ALT 15 (<35) IU/L Alkaline Phosphatase 56 (38-126) U/L C-Reactive Protein < 0.5 (<1.0) mg/dL Total Protein 6.8 (6.3-8.2) g/dL Albumin 3.9 (3.5-5.0) g/dL Globulin 2.9 (1.7-4.1) g/dL Albumin/Globulin Ratio 1.3 (1.0-2.8) Imaging Data CT scan - head: Radiologist's Impression: No acute findings Discharge Plan Departure Patient Disposition: Home Clinical Impression: Elevated blood pressure reading Migraine Qualifiers: Migraine type: ophthalmoplegic Intractability: not intractable Qualified Code(s): G43.B0 - Ophthalmoplegic migraine, not intractable Instructions: DI for Migraine Activity Restrictions/Additional Instructions: Tramadol every 6 hours as needed for headache. Follow-up with your doctor for management of ongoing headache problems. Return here as necessary. Your BP reading is elevated here in the ER, follow-up with your doctor for repeat evaluation of your blood pressure Referrals: Rebeca Sawant MD [Primary Care Provider] -
--- NOTE | 2020-09-08 23:37 | DI.CT.S_ITS ---
PROCEDURE: CT HEAD/BRAIN WO CON INDICATIONS: New onset headaches TECHNIQUE: Noncontrast 4.5 mm thick angled axial sections acquired from the foramen magnum to the vertex, with coronal and sagittal reformats. For radiation dose reduction, the following was used: automated exposure control, adjustment of mA and/or kV according to patient size. COMPARISON: [facility], CT, HEAD WITHOUT CONTRAST, 02/12/2012, 21:39. [facility], MR, MR HEAD/BRAIN WO/W CON, 01/14/2019, 6:44. [facility], MR, MR HEAD/BRAIN WO CON, 12/06/2018, 15:24. FINDINGS: Image quality: Excellent. CSF spaces: Basal cisterns are patent. No extra-axial fluid collections. The ventricles are symmetric in size and shape. Brain: No intracranial bleeds or masses. There is cerebral volume loss for age, with resultant ventricular and sulcal prominence. Bloom-white matter differentiation is normal. There is intracranial internal carotid artery and vertebral artery atherosclerosis. Skull and face: Calvarium and visualized facial bones appear intact, without suspicious lesions. Sinuses: Visualized sinuses and mastoids are clear. IMPRESSION: No acute intracranial disease process. Dictated by: Rosalinda Mabry MD, PhD on 09/09/2020 at 7:28 Approved by: Rosalinda Mabry MD, PhD on 09/09/2020 at 7:30
[2020-09-08] MEDS: KETOROLAC 60 MG/2 ML VIAL 15 MG IV (23:51)
[2020-09-09 00:24] VITALS: BP 176/79; PULSE 66; O2SAT 98
[2020-09-09 00:30] VITALS: BP 165/78; PULSE 62; O2SAT 95
[2020-09-09] MEDS: HYDROCODONE/ACET 5/325 PREPACK 1 BOTTLE MISC (01:11)
--- NOTE | 2020-09-09 01:16 | ED.HA ---
HPI - Headache General Chief Complaint: Headache Stated Complaint: right side head pain/upper neck pain Time Seen by Provider: 09/08/20 23:04 Mode of arrival: Ambulatory Limitations: no limitations Related Data Allergies Allergy/AdvReac Type Severity Reaction Status Date / Time INGREDIENT: NKDA - NO KNOWN Allergy Unknown Uncoded 02/14/18 12:53 DRUG ALLERGIES Meperidine AdvReac Unknown Uncoded 02/14/18 12:53 Review of Systems Constitutional Constitutional: Reports headache(s) and Denies weakness ENT Ears, Nose, Mouth, and Throat: Denies vertigo, Denies dizziness and Reports headache(s) Neurologic Neurologic: Denies confusion, Denies vertigo, Denies dizziness, Reports headache(s) and Denies weakness Psychiatric Psychiatric: Denies confusion Patient History Medical History Cervical spine arthritis (Acute) GERD (gastroesophageal reflux disease) (Acute) Healthy adult (Acute) Social History Smoking Status: Never smoker alcohol intake: never substance use type: does not use Smoking Status: Never smoker alcohol intake frequency: holidays/special occasions only Substance Use Type: does not use Exam Initial Vital Signs Initial Vital Signs: Vital Signs Temperature 97.9 F 09/08/20 21:32 Pulse Rate 78 09/08/20 21:32 Respiratory Rate 15 09/08/20 21:32 Blood Pressure 206/95 H 09/08/20 21:32 Pulse Oximetry 98 09/08/20 21:32 Course Orders Ordered: ED Orders 09/08/20 22:05 CRP [C-Reactive Protein Quant] Stat Complete Blood Count AUTO DIFF Stat Comprehensive Metabolic Panel Stat Erythrocyte Sedimentation Rate Stat 09/08/20 23:37 CT head/brain wo con Stat Discontinued Medications Hydrocodone Bitart/Acetaminophen (Vicodin 5/325 Prepack) 1 bottle MISC SEEINSTR ONE Stop: 09/09/20 01:04 Ketorolac Tromethamine (Toradol) 15 mg IV NOW ONE Stop: 09/08/20 23:38 Last Admin: 09/08/20 23:51 Dose: 15 mg Documented by: ADALBERTO Tramadol HCl (Ultram 50mg Prepack) 1 bottle MISC SEEINSTR ONE Stop: 11/04/20 01:16 Vital Signs Vital signs: Vital Signs - 8 hr 09/08/20 21:32 09/09/20 00:24 09/09/20 00:30 Temperature 97.9 F Pulse Rate 78 66 62 Respiratory Rate 15 Blood Pressure 206/95 H 176/79 H 165/78 H Pulse Oximetry 98 98 95 MDM - Headache Lab Data Result diagrams: 09/08/20 22:05 09/08/20 22:05 Labs: Lab Results 09/08/20 09/08/20 09/08/20 Range/Units 22:05 22:05 22:05 WBC 6.4 (4.5-11.0) X10^3/uL RBC 3.97 L (4.0-5.2) X10^6/uL Hgb 12.7 (12.0-16.0) g/dL Hct 37.8 (36-46) % MCV 95.1 (80-100) fL MCH 31.9 (26-34) PG MCHC 33.5 (30-36) % RDW 13.3 (11.6-14.8) % Plt Count 227 (150-400) X10^3/uL Neut % (Auto) 47.9 L (50-75) % Lymph % (Auto) 38.2 (25-40) % [place] % (Auto) 7.9 (3-14) % Eos % (Auto) 4.6 H (2-4) % Baso % (Auto) 1.4 (0-2) % Neut # (Auto) 3100 (7751-4642) /uL Lymph # (Auto) 2500 (3408-2565) /uL [place] # (Auto) 500 (0-900) /uL Eos # (Auto) 300 (0-450) /uL Baso # (Auto) 100 (0-100) /uL ESR 9 (0-20) MM/HR Sodium 137 (137-145) mmol/L Potassium 3.7 (3.4-5.1) mmol/L Chloride 104 (98-107) mmol/L Carbon Dioxide 29 (22-32) mmol/L BUN 27 H (7-17) mg/dL Creatinine 1.01 (0.52-1.04) mg/dL Estimated GFR 53.6 L (>60) mL/min BUN/Creatinine Ratio 26.7 H (6-22) Glucose 132 H (80-110) mg/dL Calcium 9.1 (8.4-10.2) mg/dL Total Bilirubin 0.5 (0.2-1.3) mg/dL AST 27 (14-36) IU/L ALT 15 (<35) IU/L Alkaline Phosphatase 56 (38-126) U/L C-Reactive Protein < 0.5 (<1.0) mg/dL Total Protein 6.8 (6.3-8.2) g/dL Albumin 3.9 (3.5-5.0) g/dL Globulin 2.9 (1.7-4.1) g/dL Albumin/Globulin Ratio 1.3 (1.0-2.8) Discharge Plan Departure Patient Disposition: Home Clinical Impression: Elevated blood pressure reading Migraine Qualifiers: Migraine type: ophthalmoplegic Intractability: not intractable Qualified Code(s): G43.B0 - Ophthalmoplegic migraine, not intractable Instructions: DI for Migraine Activity Restrictions/Additional Instructions: Tramadol every 6 hours as needed for headache. Follow-up with your doctor for management of ongoing headache problems. Return here as necessary. Your BP reading is elevated here in the ER, follow-up with your doctor for repeat evaluation of your blood pressure Referrals: Rebeca Sawant MD [Primary Care Provider] -
[2020-09-09] MEDS: TRAMADOL 50 MG PREPACK 1 BOTTLE MISC (01:19)
== END 2020-09-09 01:20 | disposition home or self-care (01) ==
PROVIDERS: Emergency Provider Emergency Medicine; PCP Internal Medicine
DX: G43.B0 Ophthalmoplegic migraine, not intractable (principal); R03.0 Elevated blood-pressure reading, without diagnosis of hypertension; H53.8 Other visual disturbances
CPT/HCPCS: 36415; 70450; 80053; 85025; 85651; 86140; 96374; 99284; J1885

== ENCOUNTER 2021-12-20 09:00 | Observation (INO) | payer MEDICARE, SELFPAY ==
[2021-12-20] VITALS (36 sets, daily range): BP systolic 135–225; BP diastolic 64–108; PULSE 54–102; RESP 16–40; TEMP 36.7–36.8; O2SAT 94–99; BMI 26.6; BMI 27.3
--- NOTE | 2021-12-20 09:18 | DI.RAD.S_ITS ---
PROCEDURE: XR CHEST 1V INDICATIONS: chest pain TECHNIQUE: One view of the chest was acquired. COMPARISON: [facility], CR, XR CHEST 1V, 10/10/2018, 16:11. FINDINGS: Surgical changes and devices: None. Lungs and pleura: Lungs are clear. No pleural effusions or pneumothorax. Mediastinum: Mediastinal contours appear normal. Heart size is normal. Bones and chest wall: No suspicious bony lesions. Overlying soft tissues appear unremarkable. IMPRESSION: No acute cardiopulmonary abnormality. Dictated by: Serafin Jones M.D. on 12/20/2021 at 9:50 Approved by: Serafin Jones M.D. on 12/20/2021 at 10:00
[2021-12-20 09:28] LABS: Add Manual Diff / Slide Review NO; Basophils Absolute Auto 100 /uL (0-100); Basophils Percent Auto 1.2 % (0-2); Eosinophils Absolute Auto 200 /uL (0-450); Eosinophils Percent Auto 4.5 % (2-4); Hematocrit 37.4 % (36-46); Hemoglobin 12.8 g/dL (12.0-16.0); Lymphocytes Absolute Auto 2100 /uL (1100-4500); Lymphocytes Percent Auto 41.6 % (25-40); Mean Corpuscular HGB Conc 34.2 % (30-36); Mean Corpuscular Hemoglobin 32.7 PG (26-34); Mean Corpuscular Volume 95.7 fL (80-100); Monocytes Absolute Auto 500 /uL (0-900); Monocytes Percent Auto 8.9 % (3-14); Neutrophils Absolute Auto 2200 /uL (1500-7000); Neutrophils Percent Auto 43.8 % (50-75); Platelet Count 242 X10^3/uL (150-400); Red Blood Cell Count 3.91 X10^6/uL (4.0-5.2); Red Cell Distribution Width 13.3 % (11.6-14.8); White Blood Cell Count 5.1 X10^3/uL (4.5-11.0)
[2021-12-20 09:38] LABS: Alanine Aminotransferase 14 IU/L (<35); Albumin 4.4 g/dL (3.5-5.0); Albumin Globulin Ratio 1.5 (1.0-2.8); Alkaline Phosphatase 57 U/L (38-126); Aspartate Aminotransferase 24 IU/L (14-36); BUN Creatinine Ratio 23.5 (6-22); Bilirubin Total 0.5 mg/dL (0.2-1.3); Blood Urea Nitrogen 24 mg/dL (7-17); Calcium 9.9 mg/dL (8.4-10.2); Carbon Dioxide 31 mmol/L (22-32); Chloride 103 mmol/L (98-107); Creatine Kinase 62 U/L (30-135); Estimated Glomerular Filt Rate 52.8 mL/min (>60); Globulin 2.9 g/dL (1.7-4.1); Glucose 100 mg/dL (80-110); HEMOLYSIS < 15 (0-50); Lipase 175 U/L (23-300); Magnesium 1.9 mg/dL (1.6-2.3); Sodium 138 mmol/L (137-145); Total Protein 7.3 g/dL (6.3-8.2)
[2021-12-20 09:49] LABS: Troponin I < 0.012 ng/mL (0.01-0.034)
--- NOTE | 2021-12-20 10:01 | ED.CHESTPAIN ---
HPI - Chest Pain General Chief Complaint: Chest Pain Stated Complaint: chest pains, going through the back, high BP Time Seen by Provider: 12/20/21 09:31 Source: patient Mode of arrival: Ambulatory Limitations: no limitations History of Present Illness HPI narrative: Patient is a 76-year-old female who presents with chest pain. She states she was sitting at her computer when she felt sudden sharp pain the center of her chest. It may be went through to her back. Is been constant in nature. It did seem to get worse when she sat up for her chest x-ray and got better when she laid back. It is not reproducible with arm movement or breathing. She denies any diaphoresis nausea or shortness of breath. No prior history of coronary artery disease. She has no prior history of hypertension and is noted to be quite hypertensive here in the emergency department. Related Data Home Medications Medication Instructions Recorded Confirmed Red Rice 1 tab PO BID 12/20/21 12/20/21 ascorbic acid (vitamin C) 1 tab PO DAILY 12/20/21 12/20/21 omega [id number]-[id number] oil 100 1 cap PO DAILY 12/20/21 12/20/21 mg-160 mg-1,000 mg capsule (Fish Oil) Allergies Allergy/AdvReac Type Severity Reaction Status Date / Time meperidine Allergy Verified 12/20/21 09:16 Review of Systems Review of Systems Narrative: GENERAL: Denies chills, fatigue, malaise, fever, sweats, travel HEENT: Denies sinus pain, ear pain, sore throat, difficulty swallowing, neck pain RESPIRATORY: Denies dyspnea, cough, wheezing, hemoptysis, sputum. CARDIOVASCULAR: See HPI GASTROINTESTINAL: Denies nausea, vomiting, abdominal pain, diarrhea, constipation, melena. : Denies dysuria, frequency, incontinence, hematuria, urinary retention, flank pain. MUSCULOSKELETAL: Denies weakness, joint pain, or bony pain SKIN: No rash, no erythema, no pruritus NEUROLOGIC: Denies weakness, dizziness, headache, numbness, change in speech, confusion PSYCHIATRIC: No concerning psychosocial issues. 12 point review of systems is negative except for those stated above and HPI Patient History Medical History Cervical spine arthritis GERD (gastroesophageal reflux disease) Healthy adult Social History household members: spouse Smoking Status: Never smoker alcohol intake: never substance use type: does not use Smoking Status: Never smoker alcohol intake frequency: holidays/special occasions only Substance Use Type: does not use Exam Initial Vital Signs Initial Vital Signs: Vital Signs Pulse Rate 81 12/20/21 09:11 Respiratory Rate 31 H 12/20/21 09:11 Pulse Oximetry 98 12/20/21 09:11 GENERAL: Alert well-appearing 66-year-old female in no acute distress. HEENT: Head atraumatic,EOMI, pupils reactive, face symmetric, moist mucous membranes CARDIOVASCULAR: Regular rate and rhythm without murmurs, rubs or gallops. RESPIRATORY: Breath sounds equal bilaterally, no wheezes rales or rhonchi. ABDOMEN: Soft, nontender. Normoactive bowel sounds all 4 quadrants. No guarding or rebound. EXTREMITIES: Normal range of motion, no clubbing or edema. Neurovascularly intact NEUROLOGICAL: Alert and oriented x4.Normal gait and speech. SKIN: Warm, dry, no laceration, no petechiae, no rashes or lesions. Scores HEART Score Heart Score history: Moderately Suspicious Heart Score EKG: Normal Heart Score Age: > or = 65 years old Heart Score risk factors: 1-2 risk factors Heart Score troponin: < or = to normal limit Heart Score Total: 4 Course Orders Ordered: ED Orders 12/20/21 10:13 CT angio chest abdomen pelvis Stat 12/20/21 11:32 EKG-12 Lead Stat 12/20/21 12:10 Trop I [Troponin I] Stat Acetaminophen (Acetaminophen 325 Mg Tablet) 650 mg PO Q6HR PRN PRN Reason: Fever/Mild Pain (1-3) Al Hydrox/Mg Hydrox/Simethicone (Mag Hydrox/Alum/Simeth 30 Ml Udc) 30 ml PO Q4HR PRN PRN Reason: Dyspepsia Last Admin: 12/20/21 16:00 Dose: 30 ml Documented by: CANDELARIA Amlodipine Besylate (Amlodipine 5 Mg Tablet) 5 mg PO DAILY [facility] Last Admin: 12/20/21 16:00 Dose: 5 mg Documented by: CANDELARIA Aspirin (Aspirin Ec 81 Mg Tablet) 81 mg PO DAILY [facility] Atorvastatin Calcium (Atorvastatin 20 Mg Tablet) 40 mg PO BEDTIME [facility] Enoxaparin Sodium (Enoxaparin 40 Mg/0.4 Ml Syringe) 40 mg SUBCUT DAILY [facility] Ondansetron HCl (Ondansetron 4 Mg/2 Ml Inj) 4 mg IV Q8HR PRN PRN Reason: Nausea And Vomiting Sodium Chloride (Sodium Chloride 0.9% Flush) 10 ml IV PRN PRN PRN Reason: Flush Sodium Chloride (Sodium Chloride 0.9% Flush) 10 ml IV BID [facility]ORACE Discontinued Medications Nitroglycerin (Nitroglycerin 0.4 Mg Sl Tab) 0.4 mg SL [id number] PRN PRN Reason: Chest Pain Last Admin: 12/20/21 12:27 Dose: 0.4 mg Documented by: ASHWIN Vital Signs Vital signs: Vital Signs - 8 hr 12/20/21 11:14 12/20/21 11:30 12/20/21 11:31 Pulse Rate 77 56 L 66 Respiratory Rate 22 29 H 21 Blood Pressure 210/86 H 191/79 H Pulse Oximetry 97 98 97 12/20/21 12:00 12/20/21 12:01 12/20/21 12:10 Pulse Rate 55 L 57 L 73 Respiratory Rate 23 22 25 H Blood Pressure 199/74 H Pulse Oximetry 97 97 97 12/20/21 12:20 12/20/21 12:27 12/20/21 12:30 Pulse Rate 62 60 65 Respiratory Rate 29 H 22 Blood Pressure 199/77 H Pulse Oximetry 97 96 12/20/21 12:31 12/20/21 12:40 12/20/21 12:50 Pulse Rate 67 64 57 L Respiratory Rate 21 23 23 Blood Pressure 177/75 H 135/65 146/68 H Pulse Oximetry 96 94 96 12/20/21 13:00 12/20/21 13:10 12/20/21 13:20 Pulse Rate 55 L 54 L 59 L Respiratory Rate 22 18 22 Blood Pressure 143/65 H 141/64 H Pulse Oximetry 94 95 98 12/20/21 13:21 12/20/21 13:30 12/20/21 13:40 Pulse Rate 58 L 59 L 60 Respiratory Rate 18 26 H 21 Blood Pressure 191/75 H 164/73 H 174/77 H Pulse Oximetry 97 97 96 12/20/21 13:50 Pulse Rate 64 Respiratory Rate 23 Blood Pressure 174/72 H Pulse Oximetry 96 MDM - Chest Pain Lab Data Result diagrams: 12/20/21 09:17 12/20/21 09:17 Labs: Lab Results 12/20/21 12/20/21 12/20/21 Range/Units 09:17 09:17 09:47 WBC 5.1 (4.5-11.0) X10^3/uL RBC 3.91 L (4.0-5.2) X10^6/uL Hgb 12.8 (12.0-16.0) g/dL Hct 37.4 (36-46) % MCV 95.7 (80-100) fL MCH 32.7 (26-34) PG MCHC 34.2 (30-36) % RDW 13.3 (11.6-14.8) % Plt Count 242 (150-400) X10^3/uL Neut % (Auto) 43.8 L (50-75) % Lymph % (Auto) 41.6 H (25-40) % Sequoyah % (Auto) 8.9 (3-14) % Eos % (Auto) 4.5 H (2-4) % Baso % (Auto) 1.2 (0-2) % Neut # (Auto) 2200 (7923-8775) /uL Lymph # (Auto) 2100 (2589-2427) /uL Sequoyah # (Auto) 500 (0-900) /uL Eos # (Auto) 200 (0-450) /uL Baso # (Auto) 100 (0-100) /uL Sodium 138 (137-145) mmol/L Potassium 4.0 (3.4-5.1) mmol/L Chloride 103 (98-107) mmol/L Carbon Dioxide 31 (22-32) mmol/L BUN 24 H (7-17) mg/dL Creatinine 1.02 (0.52-1.04) mg/dL Estimated GFR 52.8 L (>60) mL/min BUN/Creatinine Ratio 23.5 H (6-22) Glucose 100 (80-110) mg/dL Calcium 9.9 (8.4-10.2) mg/dL Magnesium 1.9 (1.6-2.3) mg/dL Total Bilirubin 0.5 (0.2-1.3) mg/dL AST 24 (14-36) IU/L ALT 14 (<35) IU/L Alkaline Phosphatase 57 (38-126) U/L Total Creatine Kinase 62 (30-135) U/L CK-MB (CK-2) TNP CK-MB (CK-2) Rel Index TNP Troponin I < 0.012 (0.01-0.034) ng/mL Total Protein 7.3 (6.3-8.2) g/dL Albumin 4.4 (3.5-5.0) g/dL Globulin 2.9 (1.7-4.1) g/dL Albumin/Globulin Ratio 1.5 (1.0-2.8) Lipase 175 (23-300) U/L SARS-CoV-2 (PCR) Negative (Negative) 12/20/21 Range/Units 12:10 WBC (4.5-11.0) X10^3/uL RBC (4.0-5.2) X10^6/uL Hgb (12.0-16.0) g/dL Hct (36-46) % MCV (80-100) fL MCH (26-34) PG MCHC (30-36) % RDW (11.6-14.8) % Plt Count (150-400) X10^3/uL Neut % (Auto) (50-75) % Lymph % (Auto) (25-40) % Sequoyah % (Auto) (3-14) % Eos % (Auto) (2-4) % Baso % (Auto) (0-2) % Neut # (Auto) (9056-5150) /uL Lymph # (Auto) (4980-3133) /uL Sequoyah # (Auto) (0-900) /uL Eos # (Auto) (0-450) /uL Baso # (Auto) (0-100) /uL Sodium (137-145) mmol/L Potassium (3.4-5.1) mmol/L Chloride (98-107) mmol/L Carbon Dioxide (22-32) mmol/L BUN (7-17) mg/dL Creatinine (0.52-1.04) mg/dL Estimated GFR (>60) mL/min BUN/Creatinine Ratio (6-22) Glucose (80-110) mg/dL Calcium (8.4-10.2) mg/dL Magnesium (1.6-2.3) mg/dL Total Bilirubin (0.2-1.3) mg/dL AST (14-36) IU/L ALT (<35) IU/L Alkaline Phosphatase (38-126) U/L Total Creatine Kinase (30-135) U/L CK-MB (CK-2) CK-MB (CK-2) Rel Index Troponin I < 0.012 (0.01-0.034) ng/mL Total Protein (6.3-8.2) g/dL Albumin (3.5-5.0) g/dL Globulin (1.7-4.1) g/dL Albumin/Globulin Ratio (1.0-2.8) Lipase (23-300) U/L SARS-CoV-2 (PCR) (Negative) Imaging Data Chest x-ray: Radiologist's Impression: PROCEDURE:? XR CHEST 1V ? INDICATIONS:? chest pain ? TECHNIQUE:? One view of the chest was acquired.? ? COMPARISON:? [facility], XR CHEST 1V, 10/10/2018, 16:11. ? FINDINGS:? ? Surgical changes and devices:? None.? ? Lungs and pleura:? Lungs are clear.? No pleural effusions or pneumothorax.? ? Mediastinum:? Mediastinal contours appear normal.? Heart size is normal.? ? Bones and chest wall:? No suspicious bony lesions.? Overlying soft tissues appear unremarkable.? ? IMPRESSION:? No acute cardiopulmonary abnormality. ? ? Dictated by: Serafin Jones M.D. on 12/20/2021 at 9:50? CT scan - chest: Radiologist's Impression: PROCEDURE:? CT ANGIO CHEST ABDOMEN PELVIS ? INDICATIONS:? HTN with chest pain ? TECHNIQUE:? Precontrast 5 mm thick sections acquired from the lung apices to the iliac crests.? After the administration of intravenous contrast, 2.5 mm thick sections again acquired from the lung apices to the iliac crests.? Maximum intensity projection (MIP) oblique sagittal and coronal reformats were then acquired.? For radiation dose reduction, the following was used:? automated exposure control.? ? COMPARISON:? [facility], XR CHEST 1V, 12/20/2021, 9:18. ? FINDINGS:? Image quality:? There is metallic streak artifact from patient's left hip prosthesis. ? AORTA:? Noncontrast images demonstrate no evidence of intramural hematoma.? The aorta is normal in caliber and contour.? No intimal flaps to suggest aortic dissection.? There is a 3 vessel aortic arch with conventional branching.? The visualized great vessels demonstrate normal caliber and appear patent.? The celiac, superior mesenteric, and inferior mesenteric arteries appear patent.? There are single renal arteries bilaterally which appear patent.? The common, external, and internal iliac arteries appear patent.? The common femoral and visualized proximal superficial femoral arteries also appear patent. ? CHEST:? Lungs and pleura:? There is mild dependent atelectasis bilaterally.? No acute consolidation.? No pleural effusions or pneumothorax.? Central and peripheral airways are patent and normal in caliber.? ? Mediastinum:? Heart size is normal.? No pericardial effusion.? There is mild to moderate coronary arterial vascular calcification.? The pulmonary arteries are normal in caliber and demonstrate no filling defects to suggest central pulmonary embolism.? No mediastinal or hilar adenopathy by size criteria.? Esophagus is normal in caliber.? No hiatal hernias.? ? Bones and chest wall:? No axillary adenopathy by size criteria.? The thyroid gland is slightly heterogeneous with indistinct hypoattenuating small nodules bilaterally.? No suspicious bony lesions.? No vertebral body compression fractures.? ? ? ABDOMEN:? Solid organs:? Evaluation of the liver demonstrates no focal hepatic lesions.? The gallbladder appears within normal limits without calcified gallstones.? Biliary system is non-dilated.? Pancreas enhances normally.? No peripancreatic fat stranding or fluid collections.? No pancreatic duct dilatation.? The spleen is normal in size.? No adrenal nodules.? Kidneys demonstrate no hydronephrosis. ? Peritoneum and bowel:? No free fluid or air.? Bowel loops are normal in caliber and wall thickness.? The appendix is normal in appearance.? There is colonic diverticulosis without acute diverticulitis.? ? Nodes and vessels:? No retroperitoneal or mesenteric adenopathy by size criteria.? Inferior vena cava is normal in morphology.? ? Miscellaneous:? No ventral hernias.? ? ? PELVIS:? Genitourinary:? Bladder wall thickness is normal.? There is marked distention of the urinary bladder.? ? Miscellaneous:? There are surgical clips in the right hemipelvis with associated metallic streak artifact.? No inguinal hernias or adenopathy.? No ventral hernias.? ? Bones:? A left hip prosthesis is present with associated metallic streak artifact limiting evaluation.? No periprosthetic fractures or dislocations.? 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 A mild leftward curvature is noted in the lumbar spine.? No suspicious bony lesions.? No vertebral body compression fractures.? ? ? IMPRESSION:? ? 1. No evidence of aortic dissection. ? 2. No evidence of central pulmonary embolism. ? 3. No acute consolidation in the lungs. ? 4. Marked distention of the urinary bladder may reflect bladder outlet obstruction or urinary tension. ? 5. Bilateral mild fullness of the renal collecting systems may reflect sequelae of bladder distention.? No obstructing stones visualized.? Dictated by: Justin Sanchez M.D. on 12/20/2021 at 11:17 ? ? Approved by: Justin Sanchez M.D. on 12/20/2021 at 11:26 ECG Data Interpretation: Sinus arrhythmia rate 71 IL interval 144 QRS [address] changes EKG 2. Sinus arrhythmia rate [address] changes MDM Narrative Medical decision making narrative: Patient is a 76-year-old female who has no prior history of hypertension presents and hypertensive urgency with chest pain. She has 2- troponins CT ruled out for dissection. Still continuing to have very mild chest discomfort. Nitroglycerin did lower her pressure and to help. Dr. Cedeno, accepts patient Discharge Plan Departure Patient Disposition: Admitted as Observation Clinical Impression: Hypertension, Chest pain Admit Date/Time: 12/20/21 13:53 Admit Provider: Juan A Cedeno
--- NOTE | 2021-12-20 10:13 | DI.CT.S_ITS ---
PROCEDURE: CT ANGIO CHEST ABDOMEN PELVIS INDICATIONS: HTN with chest pain TECHNIQUE: Precontrast 5 mm thick sections acquired from the lung apices to the iliac crests. After the administration of intravenous contrast, 2.5 mm thick sections again acquired from the lung apices to the iliac crests. Maximum intensity projection (MIP) oblique sagittal and coronal reformats were then acquired. For radiation dose reduction, the following was used: automated exposure control. COMPARISON: [facility], CR, XR CHEST 1V, 12/20/2021, 9:18. FINDINGS: Image quality: There is metallic streak artifact from patient's left hip prosthesis. AORTA: Noncontrast images demonstrate no evidence of intramural hematoma. The aorta is normal in caliber and contour. No intimal flaps to suggest aortic dissection. There is a 3 vessel aortic arch with conventional branching. The visualized great vessels demonstrate normal caliber and appear patent. The celiac, superior mesenteric, and inferior mesenteric arteries appear patent. There are single renal arteries bilaterally which appear patent. The common, external, and internal iliac arteries appear patent. The common femoral and visualized proximal superficial femoral arteries also appear patent. CHEST: Lungs and pleura: There is mild dependent atelectasis bilaterally. No acute consolidation. No pleural effusions or pneumothorax. Central and peripheral airways are patent and normal in caliber. Mediastinum: Heart size is normal. No pericardial effusion. There is mild to moderate coronary arterial vascular calcification. The pulmonary arteries are normal in caliber and demonstrate no filling defects to suggest central pulmonary embolism. No mediastinal or hilar adenopathy by size criteria. Esophagus is normal in caliber. No hiatal hernias. Bones and chest wall: No axillary adenopathy by size criteria. The thyroid gland is slightly heterogeneous with indistinct hypoattenuating small nodules bilaterally. No suspicious bony lesions. No vertebral body compression fractures. ABDOMEN: Solid organs: Evaluation of the liver demonstrates no focal hepatic lesions. The gallbladder appears within normal limits without calcified gallstones. Biliary system is non-dilated. Pancreas enhances normally. No peripancreatic fat stranding or fluid collections. No pancreatic duct dilatation. The spleen is normal in size. No adrenal nodules. Kidneys demonstrate no hydronephrosis. Peritoneum and bowel: No free fluid or air. Bowel loops are normal in caliber and wall thickness. The appendix is normal in appearance. There is colonic diverticulosis without acute diverticulitis. Nodes and vessels: No retroperitoneal or mesenteric adenopathy by size criteria. Inferior vena cava is normal in morphology. Miscellaneous: No ventral hernias. PELVIS: Genitourinary: Bladder wall thickness is normal. There is marked distention of the urinary bladder. Miscellaneous: There are surgical clips in the right hemipelvis with associated metallic streak artifact. No inguinal hernias or adenopathy. No ventral hernias. Bones: A left hip prosthesis is present with associated metallic streak artifact limiting evaluation. No periprosthetic fractures or dislocations. 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 A mild leftward curvature is noted in the lumbar spine. No suspicious bony lesions. No vertebral body compression fractures. IMPRESSION: 1. No evidence of aortic dissection. 2. No evidence of central pulmonary embolism. 3. No acute consolidation in the lungs. 4. Marked distention of the urinary bladder may reflect bladder outlet obstruction or urinary tension. 5. Bilateral mild fullness of the renal collecting systems may reflect sequelae of bladder distention. No obstructing stones visualized. Dictated by: Justin Sanchez M.D. on 12/20/2021 at 11:17 Approved by: Justin Sanchez M.D. on 12/20/2021 at 11:26
[2021-12-20 10:32] LABS: COVID19 -Nasal RAPID Negative (Negative)
[2021-12-20] MEDS: NITROGLYCERIN 0.4 MG SL TAB SL (12:27)
[2021-12-20 12:55] LABS: Troponin I < 0.012 ng/mL (0.01-0.034)
--- NOTE | 2021-12-20 14:26 | DI.NM.S_ITS ---
PROCEDURE: NM SATURNINO PERF SPECT R&S PHARM Rest and pharmacological stress myocardial perfusion SPECT with gated imaging and ejection fraction RADIOPHARMACEUTICAL: 12.0 mCi Tc-99m tetrafosmin IV at rest and 26.7 mCi Tc-99m tetrafosmin IV at peak effect of pharmacological stress. [id number] was performed. INDICATIONS: Chest pain TECHNIQUE: Radiopharmaceutical was injected at peak stress test, and also at rest. SPECT images were obtained. SPECT myocardial perfusion images were displayed in short axis, horizontal long axis, and vertical long axis views. Gated images were reviewed using [employer] software. COMPARISON: None. CARDIAC STRESS: A pharmacologic stress test was performed under the supervision of an attending staff, using an infusion of regadenoson. Hemodynamic data: There is normal blood pressure and heart rate response to pharmacologic stress. Symptoms: The patient started with 3 out of 10 chest pain which did not change throughout the test. EKG: No diagnostic changes of ischemia; no ectopy; there was note of an intermittent right bundle branch block. FINDINGS: Raw data: There is good myocardial uptake of radiotracer. No significant motion artifacts. [id number] ratio is 0.2 (normal is less than 0.38 for tetrafosmin tracer). Left ventricle function: Gated images demonstrate normal left ventricular wall thickening. No segmental wall motion abnormalities. No transient ischemic dilation; TID is 0.77 (normal less than 1.3). Left ventricle resting end diastolic volume is 90 mL. Left ventricle stress ejection fraction is >75%; normal range is above 45%. Myocardial perfusion: There is a small size, mild intensity fixed apical defect with normal wall motion. IMPRESSION: 1. Probably normal pharmacologic nuclear stress test without definite inducible ischemia or scar. 2. Small size, mild intensity fixed apical wall defect (also seen on prior nuclear stress test, 11/13/2018) with normal wall motion likely consistent with artifact versus apical thinning. Dictated by: Letitia Oseguera D.O. on 12/21/2021 at 15:59 Approved by: Letitia Oseguera M.D. on 12/21/2021 at 16:04
--- NOTE | 2021-12-20 15:30 | PM.HP.1 ---
History of Present Illness History of Present Illness Date Patient Seen: 12/20/21 Time Patient Seen: 08:00 Chief complaint: chest pains, going through the back, high BP Narrative: Ms Sparrow is a 76W with PMH GERD, c-spine arthritis who presents with chest pressure. She was at rest when she felt a sudden sharp pain in the center of her chest. It radiated to her back. She has no shortness of breath, cough, fevers/chills. She described the pain as heaviness in the chest that was constant after initially being sharp. She does have GERD but does not get symptoms like this. She has had a negative stress test years ago. She does not smoke. In the ED, vitals were notable for blood pressure >220s/100s. Labs notable for WBC 5.1, hgb 12.8, creatinine 1.02. Trop negative x2. EKG showed no acute changes. Chest xray showed no acute changes. CT showed no dissection or PE. It did show distended urinary bladder and mild renal collecting system fullness. Family history: Father with CHF Patient History Medical History (Updated 12/20/21 @ 13:33 by Marlene Sorto DO) Cervical spine arthritis GERD (gastroesophageal reflux disease) Healthy adult Family & Social History Safety & Behavioral: Feels Safe in Current Yes Environment Tobacco & Substance use: Smoking Status Never smoker alcohol intake never alcohol intake frequency holiday/special occasion Substance Use Type does not use Meds Home Medications and Allergies Allergies Allergy/AdvReac Type Severity Reaction Status Date / Time meperidine Allergy Verified 12/20/21 09:16 Review of Systems Review of Systems Narrative: 14 systems reviewed and negative aside from what is noted in HPI Exam Vital Signs (past 8 hours): - 12/20/21 09:11 12/20/21 09:16 12/20/21 09:30 Temperature 98.2 F Pulse Rate 81 86 64 Respiratory Rate 31 H 18 39 H Blood Pressure 225/108 H Pulse Oximetry 98 99 98 12/20/21 09:31 12/20/21 10:00 12/20/21 10:30 Temperature Pulse Rate 63 56 L 58 L Respiratory Rate 40 H 20 16 Blood Pressure 194/84 H 200/84 H Pulse Oximetry 98 96 95 12/20/21 10:31 12/20/21 11:00 12/20/21 11:14 Temperature Pulse Rate 61 68 77 Respiratory Rate 22 20 22 Blood Pressure 207/85 H 210/86 H Pulse Oximetry 95 96 97 12/20/21 11:30 12/20/21 11:31 12/20/21 12:00 Temperature Pulse Rate 56 L 66 55 L Respiratory Rate 29 H 21 23 Blood Pressure 191/79 H Pulse Oximetry 98 97 97 12/20/21 12:01 12/20/21 12:10 12/20/21 12:20 Temperature Pulse Rate 57 L 73 62 Respiratory Rate 22 25 H 29 H Blood Pressure 199/74 H Pulse Oximetry 97 97 97 12/20/21 12:27 12/20/21 12:30 12/20/21 12:31 Temperature Pulse Rate 60 65 67 Respiratory Rate 22 21 Blood Pressure 199/77 H 177/75 H Pulse Oximetry 96 96 12/20/21 12:40 12/20/21 12:50 12/20/21 13:00 Temperature Pulse Rate 64 57 L 55 L Respiratory Rate 23 23 22 Blood Pressure 135/65 146/68 H 143/65 H Pulse Oximetry 94 96 94 12/20/21 13:10 12/20/21 13:20 12/20/21 13:21 Temperature Pulse Rate 54 L 59 L 58 L Respiratory Rate 18 22 18 Blood Pressure 141/64 H 191/75 H Pulse Oximetry 95 98 97 12/20/21 13:30 12/20/21 13:40 12/20/21 13:50 Temperature Pulse Rate 59 L 60 64 Respiratory Rate 26 H 21 23 Blood Pressure 164/73 H 174/77 H 174/72 H Pulse Oximetry 97 96 96 12/20/21 14:00 12/20/21 14:10 12/20/21 14:20 Temperature Pulse Rate 67 58 L 60 Respiratory Rate 30 H 32 H 37 H Blood Pressure 160/71 H 159/72 H 152/72 H Pulse Oximetry 97 96 96 12/20/21 14:30 12/20/21 14:40 Temperature Pulse Rate 68 57 L Respiratory Rate 22 Blood Pressure 159/70 H Pulse Oximetry 97 96 Oxygen Delivery Method Room Air Narrative Exam Narrative: GEN: no acute distress HEENT: moist mucous membranes CV: bradycardic with no murmurs PULM: clear bilaterally, no wheezes ABD: soft, nontender, nondistended, no organomegaly, normal bowel sounds EXT: warm and well perfused with no edema NEURO: awake, alert, oriented, no focal deficits SKIN: no rashes PSYCH: pleasant Objective Labs Result Diagrams: 12/20/21 09:17 12/20/21 09:17 Labs: Laboratory Results - last 24 hr 12/20/21 12/20/21 12/20/21 09:17 09:17 09:47 WBC 5.1 RBC 3.91 L Hgb 12.8 Hct 37.4 MCV 95.7 MCH 32.7 MCHC 34.2 RDW 13.3 Plt Count 242 Neut % (Auto) 43.8 L Lymph % (Auto) 41.6 H [place] % (Auto) 8.9 Eos % (Auto) 4.5 H Baso % (Auto) 1.2 Neut # (Auto) 2200 Lymph # (Auto) 2100 [place] # (Auto) 500 Eos # (Auto) 200 Baso # (Auto) 100 Sodium 138 Potassium 4.0 Chloride 103 Carbon Dioxide 31 BUN 24 H Creatinine 1.02 Estimated GFR 52.8 L BUN/Creatinine Ratio 23.5 H Glucose 100 Calcium 9.9 Magnesium 1.9 Total Bilirubin 0.5 AST 24 ALT 14 Alkaline Phosphatase 57 Total Creatine Kinase 62 CK-MB (CK-2) TNP CK-MB (CK-2) Rel Index TNP Troponin I < 0.012 Total Protein 7.3 Albumin 4.4 Globulin 2.9 Albumin/Globulin Ratio 1.5 Lipase 175 SARS-CoV-2 (PCR) Negative 12/20/21 12:10 WBC RBC Hgb Hct MCV MCH MCHC RDW Plt Count Neut % (Auto) Lymph % (Auto) [place] % (Auto) Eos % (Auto) Baso % (Auto) Neut # (Auto) Lymph # (Auto) [place] # (Auto) Eos # (Auto) Baso # (Auto) Sodium Potassium Chloride Carbon Dioxide BUN Creatinine Estimated GFR BUN/Creatinine Ratio Glucose Calcium Magnesium Total Bilirubin AST ALT Alkaline Phosphatase Total Creatine Kinase CK-MB (CK-2) CK-MB (CK-2) Rel Index Troponin I < 0.012 Total Protein Albumin Globulin Albumin/Globulin Ratio Lipase SARS-CoV-2 (PCR) Assessment & Plan Assessment & Plan narrative: Ms. Sparrow is a 76W with PMH GERD who presents with sudden onset chest pain. 1. Acute chest pain -etiology may be cardiac, possible also gastrointestinal -trend one more troponin -EKG showed no acute ischemia -continue aspirin and atorvastatin -plan for pharm stress test 2. Hypertensive urgency, acute -improved without medications -possibly secondary to pain and anxiety -start low dose amlodipine 3. GERD -controlled for now -consider dc with PPI if cardiac workup negative 4. Bladder distention -etiology not clear, patient asymptomatic -may need straight cath vs manriquez -check ua to evaluate for infection CODE: DNR Proxy: Hardeep Kyara, spouse I have utilized all available medications to reconcile patient's home medications. Time Spent With Patient Critical Care time: I spent a total of [] minutes of critical care time on this patient's care today; this time is exclusive of procedural time. Quality MIPS - Admit I confirm the patient?s Advance Care Plan is present, Code status is documented, Surrogate decision maker is in patient?s record [If Yes, STOP here]: Yes
[2021-12-20] MEDS: MAG HYDROX/ALUM/SIMETH 30 ML UDC PO (16:00)
[2021-12-20] MEDS: AMLODIPINE 5 MG TABLET PO (16:00)
--- NOTE | 2021-12-20 18:06 | PC.NURSE ---
Patient was admitted from ER to room 203 approx 1500 today. Oriented to room and call light, and settled into bed. Patient states pain has improved to almost gone maybe a 1/10 to chest of a little dullness. Patient states she forgot to mention she had belching today and isn't sure if she is having reflux, MD notified and prn for dyspepsia given. Plan for stress test tomorrow morning. call light within reach, bed alarm on for safety and agrees to call for assistance getting up.
[2021-12-20 18:08] LABS: Appearance Urine UA CLEAR; Bilirubin Urine UA NEGATIVE (NEGATIVE); Color Urine UA YELLOW; Glucose Urine UA NEGATIVE (Negative); Ketones Urine UA NEGATIVE (NEGATIVE); Leukocyte Esterase Urine UA 1+ (NEGATIVE); Nitrite Urine UA NEGATIVE (Negative); Occult Blood Urine UA 3+ (Negative); Protein Urine UA TRACE (Negative); Urobilinogen Urine UA 0.2 E.U./dL (0.2)
[2021-12-20 18:16] LABS: Bacteria Urine None Seen; Culture Indicated Urine Cult Not Indicated; RBC Urine 5-10/HPF (0-5/HPF); Squamous Epithelial Cell Urine 10-30 /HPF (0-5/HPF); WBC Urine 5-10/HPF (0-5/HPF)
[2021-12-20 19:23] LABS: Troponin I 0.013 ng/mL (0.01-0.034)
[2021-12-20] MEDS: SODIUM CHLORIDE 0.9% FLUSH 10 ML IV (20:10)
[2021-12-20] MEDS: ATORVASTATIN 20 MG TABLET 40 MG PO (20:10)
--- NOTE | 2021-12-20 22:11 | PC.NURSE ---
Patient is alert and oriented. [place] and wears bilateral hearing aids. Breath sounds CTA with RA sat of 95%. HRR and telemetry reading was SR. States she still has some chest pressure but has improved since admission and declines pain medication. Denied nausea. BT present and abdomen is soft. Reports chronic urinary urgency but no dysuria; also has some retention issues but PVR done on previous shift was 0. Is able to move herself in bed. SBA provided when out of bed. Had calf SCD's on at shift change but requested they be removed when she was ready for sleep as unable to sleep with them on. Fall risk score is high and bed alarm is activated. Plan is for stress test in a.m. but has been told she could have water but no food after 0600.
[2021-12-21] VITALS (7 sets, daily range): BP systolic 134–154; BP diastolic 73–96; PULSE 61–81; RESP 14–18; TEMP 36.4–36.7; O2SAT 95–97
[2021-12-21] MEDS: MAG HYDROX/ALUM/SIMETH 30 ML UDC PO (04:10)
[2021-12-21] MEDS: ACETAMINOPHEN 325 MG TABLET 650 MG PO (04:16)
[2021-12-21 04:59] LABS: Add Manual Diff / Slide Review NO; Basophils Absolute Auto 100 /uL (0-100); Basophils Percent Auto 1.5 % (0-2); Eosinophils Absolute Auto 300 /uL (0-450); Eosinophils Percent Auto 4.6 % (2-4); Hematocrit 39.3 % (36-46); Hemoglobin 13.5 g/dL (12.0-16.0); Lymphocytes Absolute Auto 2500 /uL (1100-4500); Lymphocytes Percent Auto 41.1 % (25-40); Mean Corpuscular HGB Conc 34.3 % (30-36); Mean Corpuscular Hemoglobin 32.8 PG (26-34); Mean Corpuscular Volume 95.7 fL (80-100); Monocytes Absolute Auto 400 /uL (0-900); Monocytes Percent Auto 6.8 % (3-14); Neutrophils Absolute Auto 2800 /uL (1500-7000); Platelet Count 260 X10^3/uL (150-400); Red Cell Distribution Width 12.9 % (11.6-14.8)
[2021-12-21 05:08] LABS: BUN Creatinine Ratio 23.2 (6-22); Blood Urea Nitrogen 19 mg/dL (7-17); Carbon Dioxide 36 mmol/L (22-32); Chloride 101 mmol/L (98-107); Estimated Glomerular Filt Rate > 60.0 mL/min (>60); Glucose 104 mg/dL (80-110); Potassium 4.1 mmol/L (3.4-5.1); Sodium 138 mmol/L (137-145)
[2021-12-21 05:09] LABS: HEMOLYSIS 53 (0-50)
[2021-12-21 05:17] LABS: Troponin I < 0.012 ng/mL (0.01-0.034)
[2021-12-21] MEDS: ENOXAPARIN 40 MG/0.4 ML SYRINGE SUBCUT (09:38)
[2021-12-21] MEDS: ASPIRIN EC 81 MG TABLET PO (09:38)
[2021-12-21] MEDS: SODIUM CHLORIDE 0.9% FLUSH 10 ML IV (09:38)
[2021-12-21] MEDS: lisinopriL 20 MG TABLET PO (09:40)
[2021-12-21] MEDS: AMLODIPINE 5 MG TABLET 10 MG PO (09:40)
--- NOTE | 2021-12-21 11:27 | DI.ECHO.S_ITS ---
+ + :Name: MARIA EUGENIA CHAUDHRY Study Date: 12/21/2021 Height: 62 in : :[facility] ReadingLocation: Weight: 149 lb : : Gender: Female BSA: 1.7 m2 : :: 1945 Age: 76 yrs BP: 137/73 mmHg: :Reason For Study: CHEST PAIN : :Ordering Physician: HARPREET THRASHER : : Performed By: Court Morgan : :Referring: HARPREET THRASHER MD : + + Interpretation Summary The left ventricle is normal in size and wall thickness. The ejection fraction is estimated to be 60-65%. There are no focal wall motion abnormalities. Intermeidate diastolic funciton. The right ventricle is normal in size and function. The right ventricular systolic pressure is estimated to be at least 21 mmHg based on an estimated right atrial pressure of 3 mm Hg. Left atrium is moderately enlarged. No significant valvular disease. Procedure: A two-dimensional transthoracic echocardiogram with color flow and Doppler was performed. The study quality was technically adequate. There is no prior echocardiogram noted for this patient. The patient was in sinus rhythm with heart rates between 58-65 bpm during the exam. Left Ventricle: The left ventricle is normal in size and wall thickness. The ejection fraction is estimated to be 60-65%. There are no focal wall motion abnormalities. Right Ventricle: The right ventricle is normal in size and function. Atria: The left atrium is moderately dilated. Right atrial size is normal. There is no Doppler evidence for an interatrial shunt. Mitral Valve: The mitral valve is grossly normal. There is trace mitral regurgitation. Aortic Valve: The aortic valve is trileaflet. The aortic valve opens well. There is no aortic valve stenosis. No aortic regurgitation is present. Tricuspid Valve: There is mild tricuspid regurgitation. The right ventricular systolic pressure is estimated to be at least 21 mmHg based on an estimated right atrial pressure of 3 mm Hg. Pulmonic Valve: The pulmonic valve is not well visualized. There is mild pulmonic regurgitation. Great Vessels: The aortic root is normal size. The ascending aorta could not be visualized. The IVC is of normal diameter and collapses greater than 50% with a sniff. This suggests a low right atrial pressure of 3 mm Hg. Pericardium/ Pleura There is no pericardial effusion. There is no pleural effusion. MMode/2D Measurements & Calculations LVIDd: 4.9 cm LVOT diam: 2.2 cm LVIDs: 3.3 cm Ao root diam: 3.0 cm FS: 32.3 % Ao Arch Diam (Prox Trans): 2.6 cm IVSd: 0.96 cm LVPWd: 0.87 cm LV guzman. diameter/BSA (cm/m^2): 2.9 LV sys. diameter/BSA (cm/m^2): 2.0 LA A2 area: 21.3 cm2 RA long axis: 4.5 cm LA A4 area: 16.1 cm2 RA area: 14.1 cm2 LA length (vol): 4.3 cm RA vol: 37.4 ml LA vol: 67.9 ml RA : 22.2 ml/m2 LA vol index: 40.3 ml/m2 IVC diam: 0.97 cm RVD1 (basal): 3.4 cm TAPSE: 2.8 cm Doppler Measurements & Calculations Ao V2 max: 164.1 cm/sec LVOT Max [place]: 113.3 cm/sec Ao V2 mean: 115.9 cm/sec LV V1 max P.1 mmHg Ao max P.9 mmHg LV V1 VTI: 25.8 cm Ao mean P.0 mmHg TOÑO(I,D): 2.8 cm2 Ao V2 VTI: 35.7 cm TOÑO(V,D): 2.6 cm2 sev ratio: 0.72 TOÑO indexed to BSA (cm^2/m^2): 1.6 MV E max [place]in: 65.0 cm/sec TR max austin: 214.1 cm/sec MV A max ausitn: 95.4 cm/sec TR max P.3 mmHg MV E/A: 0.68 PA V2 max: 106.5 cm/sec Med Peak E' [place]: 7.4 cm/sec PA V2 mean: 63.6 cm/sec E/E' med: 8.8 PA mean P.9 mmHg Lat Peak E' [place]: 8.2 cm/sec PA pr(Accel): 27.6 mmHg E/E' lat: 7.9 E/e' average: 8.4 MV dec time: 0.20 sec SV(LVOT): 98.4 ml
--- NOTE | 2021-12-21 12:55 | P.PN_ITS ---
Subjective Subjective Interval history: The patient denies any ongoing CP this morning. She reports improvement of her SOB. She is aware that she is pending stress test results. Exam Vital Signs (past 8 hours): - 12/21/21 07:49 12/21/21 07:59 12/21/21 09:40 Temperature 97.8 F Pulse Rate 70 80 Respiratory Rate 16 Blood Pressure 154/84 H 137/96 H Pulse Oximetry 97 97 12/21/21 11:00 Temperature 98.0 F Pulse Rate 76 Respiratory Rate 14 Blood Pressure 152/78 H Pulse Oximetry 97 Oxygen Delivery Method Room Air Oxygen Flow Rate 0 Narrative Exam Narrative: GEN: sitting up in bed comfortably upon my entering the room, speaking with her , and in no apparent, acute distress HEENT: moist mucous membranes CV: RRR, S1 and S2 heart sounds normal, no extra heart sounds or murmurs appreciated, CP reproducible with chest wall palpation PULM: clear to auscultation bilaterally, no wheezes ABD: soft, non-tender, non-distended, bowel sounds present EXT: warm and well-perfused with no edema NEURO: awake, alert, oriented, no focal deficits SKIN: no grossly abnormal rashes appreciated PSYCH: pleasant Objective Labs Result Diagrams: 12/21/21 04:30 12/21/21 04:30 Labs: Laboratory Results - last 24 hr 12/20/21 12/20/21 12/20/21 12:10 16:05 18:49 WBC RBC Hgb Hct MCV MCH MCHC RDW Plt Count Neut % (Auto) Lymph % (Auto) [place] % (Auto) Eos % (Auto) Baso % (Auto) Neut # (Auto) Lymph # (Auto) [place] # (Auto) Eos # (Auto) Baso # (Auto) Sodium Potassium Chloride Carbon Dioxide BUN Creatinine Estimated GFR BUN/Creatinine Ratio Glucose Calcium Troponin I < 0.012 0.013 Urine Color Yellow Urine Appearance Clear Urine pH 7.0 Ur Specific [place] 1.010 Urine Protein Trace H Urine Glucose (UA) Negative Urine Ketones Negative Urine Occult Blood 3+ H Urine Nitrate Negative Urine Bilirubin Negative Urine Urobilinogen 0.2 Ur Leukocyte Esterase 1+ H Urine RBC 5-10/hpf H Urine WBC 5-10/hpf H Ur Squamous Epith Cells 10-30 /hpf H Urine Bacteria None seen Ur Culture Indicated? Cult not indicated 12/21/21 12/21/21 04:30 04:30 WBC 6.0 RBC 4.10 Hgb 13.5 Hct 39.3 MCV 95.7 MCH 32.8 MCHC 34.3 RDW 12.9 Plt Count 260 Neut % (Auto) 46.0 L Lymph % (Auto) 41.[address] [place] % (Auto) 6.8 Eos % (Auto) 4.6 H Baso % (Auto) 1.5 Neut # (Auto) 2800 Lymph # (Auto) [address] [place] # (Auto) 400 Eos # (Auto) 300 Baso # (Auto) 100 Sodium 138 Potassium 4.1 Chloride 101 Carbon Dioxide 36 H BUN 19 H Creatinine 0.82 Estimated GFR > 60.0 BUN/Creatinine Ratio 23.2 H Glucose 104 Calcium 10.0 Troponin I < 0.012 Urine Color Urine Appearance Urine pH Ur Specific [place] Urine Protein Urine Glucose (UA) Urine Ketones Urine Occult Blood Urine Nitrate Urine Bilirubin Urine Urobilinogen Ur Leukocyte Esterase Urine RBC Urine WBC Ur Squamous Epith Cells Urine Bacteria Ur Culture Indicated? [facility] Medical History Cervical spine arthritis GERD (gastroesophageal reflux disease) Healthy adult Social History household members: spouse Smoking Status: Never smoker alcohol intake: never substance use type: does not use Assessment & Plan Assessment & Plan narrative: Ms. Sparrow is a 76W with PMH GERD who presents with sudden onset chest pain. 1. Acute chest pain -etiology may be cardiac, possibly also gastrointestinal -troponins negative -EKG showed no acute ischemia -continue aspirin and atorvastatin -stress test results pending 2. Hypertensive urgency, acute -improved without medications -possibly secondary to pain and anxiety -will double amlodipine, and start lisinopril 3. GERD -controlled for now -consider d/c with PPI if cardiac workup negative 4. Bladder distention -etiology not clear, patient asymptomatic CODE: DNR Proxy: Hardeep Sparrow, spouse I have utilized all available medications to reconcile patient's home medications. Time Spent With Patient Critical Care time: I spent a total of [] minutes of critical care time on this patient's care today; this time is exclusive of procedural time. Quality VTE Deep Vein Thrombosis/Pulmonary Embolism Present on Admission: No MIPS - Admit I confirm the patient?s Advance Care Plan is present, Code status is documented, Surrogate decision maker is in patient?s record [If Yes, STOP here]: Yes
--- NOTE | 2021-12-21 13:43 | CM.DANOTE ---
Patient is a 76 yo female who was admitted on 12/20/21 for Chest Pains/High BP. Pt has [facility] and [employer] for insurance and her PCP is Dr. Rebeca Sawant. EMR was reviewed. Per MD, unclear etiology of possible cardiac vs gastrointestinal and to have Echo and Stress test today. SW attempted to meet bedside with pt but she was off the floor for stress test. Per RN, pt is SBA with mobilty in the room and somewhat [place] [facility] and DNR. Pt has no hx of admissions at [facility]. Pt lives with spouse in [place] and MD anticipates likely d/c home later today after Echo and Stress Test results return. Plan: SW to follow for likely d/c home via spouse POV after test results and any further identified discharge planning needs. 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 Yes Advance Directives on File No History Provided By Patient,Medical Record Has Patient been admitted in last 30 No days? Prior Living Arrangements House Household Members spouse Type of transporation used prior to Drives own vehicle admit Independent with ADL's Yes Is patient alert and oriented? Yes Caregiver for Another No Barriers to Discharge No Discharge Plan Home Transportation Arrangement Spouse to provide transport at d/c Referrals Initiated None needed Whiteboard Updated in Patient Room with Yes name and ext. # of Cup Trimming Machine Operator Review Status In Process Please Provide Date Initial DC 12/21/21 Assessment Was Performed Next Review Type Continued Stay Review
--- NOTE | 2021-12-21 18:42 | P.DS_ITS ---
History of Present Illness History of Present Illness Chief complaint: chest pains, going through the back, high BP Discharge Providers Provider Date of admission: 12/20/21 13:53 Discharge Date: 12/21/21 Primary care physician: Rebeca Sawant MD Discharge provider: Carol Sosa MD Summary Hospital Course Discharge Diagnosis: Ms. Sparrow is a 76W with PMH GERD who presents with sudden onset chest pain. 1. Atypical chest pain, likely non-cardiac origin - myocardial perfusion study inpatient unremarkable for reversible ischemia- possibly GI origin, and patient would benefit from trial of OTC PPI outpatient 2. Hypertensive urgency, acute - improved with amlodipine and lisinopril 3. GERD - trial of OTC PPI is warranted 4. Bladder distention - etiology not clear, patient asymptomatic Exam Vital Signs (past 8 hours): - 12/21/21 11:00 12/21/21 15:00 Temperature 98.0 F 97.9 F Pulse Rate 76 81 Respiratory Rate 14 14 Blood Pressure 152/78 H 134/80 Pulse Oximetry 97 97 Oxygen Delivery Method Room Air Oxygen Flow Rate 0 Narrative Exam Narrative: GEN: sitting up in bed comfortably upon my entering the room, speaking with her , and in no apparent, acute distress HEENT: moist mucous membranes CV: RRR, S1 and S2 heart sounds normal, no extra heart sounds or murmurs appreciated, CP reproducible with chest wall palpation PULM: clear to auscultation bilaterally, no wheezes ABD: soft, non-tender, non-distended, bowel sounds present EXT: warm and well-perfused with no edema NEURO: awake, alert, oriented, no focal deficits SKIN: no grossly abnormal rashes appreciated PSYCH: pleasant Objective Labs Result Diagrams: 12/21/21 04:30 12/21/21 04:30 Labs: Laboratory Results - last 24 hr 12/20/21 12/21/21 12/21/21 18:49 04:30 04:30 WBC 6.0 RBC 4.10 Hgb 13.5 Hct 39.3 MCV 95.7 MCH 32.8 MCHC 34.3 RDW 12.9 Plt Count 260 Neut % (Auto) 46.0 L Lymph % (Auto) 41.1 H [place] % (Auto) 6.8 Eos % (Auto) 4.6 H Baso % (Auto) 1.5 Neut # (Auto) 2800 Lymph # (Auto) 2500 [place] # (Auto) 400 Eos # (Auto) 300 Baso # (Auto) 100 Sodium 138 Potassium 4.1 Chloride 101 Carbon Dioxide 36 H BUN 19 H Creatinine 0.82 Estimated GFR > 60.0 BUN/Creatinine Ratio 23.2 H Glucose 104 Calcium 10.0 Troponin I 0.013 < 0.012 PFSH Medical History Cervical spine arthritis GERD (gastroesophageal reflux disease) Healthy adult Social History household members: spouse Smoking Status: Never smoker alcohol intake: never substance use type: does not use Discharge Assessment & Plan Assessment and Plan Assessment: Ms. Sparrow is a 76W with PMH GERD who presents with sudden onset chest pain. 1. Atypical chest pain, likely non-cardiac origin - myocardial perfusion study inpatient unremarkable for reversible ischemia- possibly GI origin, and patient would benefit from trial of OTC PPI outpatient 2. Hypertensive urgency, acute - improved with amlodipine and lisinopril 3. GERD - trial of OTC PPI is warranted 4. Bladder distention - etiology not clear, patient asymptomatic Discharge Plan Discharge Plan Patient Disposition: Home Discharge orders & Medications Prescriptions: Continued Fish Oil 100-160-1,000 mg Capsule 1 cap PO DAILY 0RF Red Rice 1 tab PO BID 0RF ascorbic acid (vitamin C) 1 tab PO DAILY 0RF Follow up/Referrals: Rebeca Sawant MD [Primary Care Provider] - Discharge Data Primary Care Provider: Rebeca Sawant Attending Provider: Juan A Cedeno VTE Deep Vein Thrombosis/Pulmonary Embolism Present on Admission: No
== END 2021-12-21 19:32 | disposition home or self-care (01) ==
LOC: ED 13:33 → AC 13:54
PROVIDERS: Admitting Provider Internal Medicine; Emergency Provider Emergency Medicine; PCP Internal Medicine; Referring Provider Emergency Medicine; Visit Provider Internal Medicine
DX: I16.0 Hypertensive urgency (principal); K21.9 Gastro-esophageal reflux disease without esophagitis; N32.89 Other specified disorders of bladder; Z20.822 Contact with and (suspected) exposure to COVID-19
CPT/HCPCS: 36415; 71045; 71275; 74174; 78452; 80048; 80053; 81001; 82550; 83690; 83735; 84484; 85025; 87635; 93005; 93010; 93017; 93306; 94760; 96372; 99284; C9803; G0378; A9502; J1650; J2785

== ENCOUNTER → 2021-12-24 18:25 | Outpatient (CLI) | payer MEDICARE, SELFPAY ==
[2021-12-20 14:12] VITALS: BMI 27.3
--- NOTE | 2021-12-24 | DI.MRI.S_ITS ---
PROCEDURE: MR HEAD/BRAIN WO/W CON INDICATIONS: Transient cerebral ischemic attack, unspecified TECHNIQUE: Noncontrast axial T1 spin echo, axial T2 fast spin echo, sagittal and axial FLAIR, coronal T2 fast spin echo, axial gradient echo, axial diffusion and ADC through the brain. After the administration of contrast, axial and coronal 3D VIBE or T1 spin echo with fat saturation through the brain. COMPARISON: [facility], CT, CT HEAD/BRAIN WO CON, 09/08/2020, 23:45. [facility], MR, MR HEAD/BRAIN WO/W CON, 01/14/2019, 6:44. MR, MR HEAD/BRAIN WO CON, 12/06/2018, 15:24. FINDINGS: Image quality: Excellent. CSF Spaces: Basal cisterns are patent. No extra-axial fluid collections. Ventricles are normal in size and shape. Brain: No midline shift. No intracranial bleeds or masses. There is mild, diffuse cerebral volume loss. There are multiple foci of increased T2 signal in the periventricular, corpus callosal and subcortical white matter tracks. No abnormal intracranial enhancement. The brainstem appears normal. Diffusion-weighted images demonstrate no acute ischemic insults. No chronic ischemic insults. Normal intravascular flow voids are present. Skull and face: Calvarial marrow is normal in signal. Orbits appear normal. Sinuses: Sinuses and mastoids appear clear. IMPRESSION: 1. No abnormal intracranial disease process. 2. No abnormal intracranial mass or mass effect. 3. No suspicious postcontrast enhancement. 4. Mild, diffuse cerebral volume loss. 5. Multiple foci of increased T2 signal involving the periventricular, subcortical and corpus callosum white matter tracks which are not significantly changed compared to January 14, 2019. Lesions are suspicious for demyelinating process such as multiple sclerosis, but are nonspecific may be related to chronic microvascular ischemic changes. Please correlate with clinical data. Dictated by: Rosalinda Mabry MD, PhD on 12/27/2021 at 8:47 Approved by: Rosalinda Mabry MD, PhD on 12/27/2021 at 8:55
== END ==
PROVIDERS: PCP Internal Medicine; Referring Provider Internal Medicine; Visit Provider Internal Medicine
DX: G45.9 Transient cerebral ischemic attack, unspecified (principal)
CPT/HCPCS: 70553; A9579

== ENCOUNTER → 2022-01-05 08:23 | Outpatient (CLI) | payer MEDICARE, SELFPAY ==
[2021-12-20 14:12] VITALS: BMI 27.3
--- NOTE | 2022-01-05 08:25 | DI.MRI.S_ITS ---
PROCEDURE: MR CERVICAL SPINE WO CON INDICATIONS: Radiculopathy, cervical region TECHNIQUE: Noncontrast sagittal T1 spin echo and T2 fast spin echo, sagittal STIR, foraminal oblique sagittal T2 fast spin echo, and axial gradient echo or T2 fast spin echo through the cervical spine. COMPARISON: None. FINDINGS: Image quality: Excellent. Alignment and Curvature: There is normal bony alignment. Bone Marrow: Marrow demonstrates normal overall signal. Spinal Cord: Visualized spinal cord has normal size and signal. No cerebellar tonsillar herniation. Paraspinous Soft Tissues: No paravertebral masses. Prevertebral soft tissues are normal in thickness. C2-C3: Normal appearance. C3-C4: Normal appearance. C4-C5: Disc space narrowing and posterior disc osteophyte complex results in moderate central stenosis with minimal flattening of the ventral surface of the cord. No cord edema. C5-C6: Disc space narrowing and posterior disc osteophyte complex results in mild central stenosis. Hypertrophic uncovertebral joint results in mild left and no right foraminal stenosis. C6-C7: Disc space narrowing present. Posterior disc osteophyte complex results in [id number] central stenosis eccentric to the left. No foraminal stenosis. C7-T1: Normal appearance. IMPRESSION: Multilevel degenerative disc disease and arthropathy results in varying degrees of central and foraminal stenosis including moderate stenosis at C5-6 Approved by: Neville Gr M.D. on 01/05/2022 at 11:18
== END ==
PROVIDERS: PCP Internal Medicine; Referring Provider Internal Medicine; Visit Provider Internal Medicine
DX: M50.121 Cervical disc disorder at C4-C5 level with radiculopathy (principal); M47.22 Other spondylosis with radiculopathy, cervical region; M48.02 Spinal stenosis, cervical region
CPT/HCPCS: 72141

== ENCOUNTER 2023-05-11 10:08 | Emergency (ER) | payer MEDICARE, SELFPAY ==
[2021-12-20 14:12] VITALS: BMI 27.3
[2023-05-11] VITALS (13 sets, daily range): BP systolic 152–179; BP diastolic 66–94; PULSE 53–81; RESP 10–22; TEMP 36.8; O2SAT 94–98; BMI 27.2
--- NOTE | 2023-05-11 10:28 | DI.CT.S_ITS ---
PROCEDURE: CT STROKE INDICATIONS: word finding problems since 09 TECHNIQUE: Noncontrast 4.5 mm thick angled axial sections acquired from the foramen magnum to the vertex, with coronal reformats. For radiation dose reduction, the following was used: automated exposure control, adjustment of mA and/or kV according to patient size. COMPARISON: None. FINDINGS: Image quality: Excellent. CSF spaces: Basal cisterns are patent. No extra-axial fluid collections. The ventricles are symmetric in size and shape. Brain: No intracranial bleeds or masses. There is cerebral volume loss for age, with resultant ventricular and sulcal prominence. There are periventricular and deep white matter chronic small vessel ischemic changes. There is intracranial internal carotid artery and vertebral artery atherosclerosis. Skull and face: Calvarium and visualized facial bones appear intact, without suspicious lesions. Sinuses: Visualized sinuses and mastoids are clear. IMPRESSION: 1. No acute intracranial abnormalities. 2. Cerebral volume loss and chronic microvascular ischemic changes. The result was discussed with Dr. Schilling prior to dictation. This study fulfills neurological imaging criteria for inclusion or exclusion of acute stroke therapies based on available published neurological guidelines. Dictated by: Bobby Gan M.D. on 05/11/2023 at 10:56 Approved by: Bobby Gan M.D. on 05/11/2023 at 10:58
--- NOTE | 2023-05-11 10:29 | DI.CT.S_ITS ---
PROCEDURE: CT ANGIO HEAD AND NECK INDICATIONS: word finding problems since 0900 TECHNIQUE: After the administration of intravenous contrast, 1 mm thick sections acquired from the aortic arch through the [place] of [place]. Post-contrast 4.5 mm thick sections then re-acquired from the foramen magnum to the vertex. 3-dimensional pybvpsz-yyqtmbejx-quvtnepxou (MIP) and/or volume rendering reformats were acquired of the central intracranial vasculature and neck separately. For radiation dose reduction, the following was used: automated exposure control, adjustment of mA and/or kV according to patient size. COMPARISON: [facility], CT, CT STROKE, 05/11/2023, 10:42. FINDINGS: Image quality: Excellent. BRAIN: CSF spaces: Ventricles are normal in size and shape. Basal cisterns are patent. No extra-axial fluid collections. Brain: No midline shift. No intracranial bleeds or masses. Bloom-white matter interface appears intact. Age-related volume loss and mild, age-appropriate small-vessel ischemic change. Skull and face: Calvarium and facial bones appear intact, without suspicious lesions. Orbits appear normal. Sinuses: Sinuses and mastoids are clear. HEAD CT ANGIOGRAPHY: Anterior circulation: Intracranial internal carotid arteries are normal in size and flow. The flow within the paired anterior cerebral arteries is normal and symmetric. The flow within the middle cerebral arteries is normal and symmetric. The anterior communicating artery is seen. No aneurysms are seen. Posterior circulation: Visualized portions of the vertebral arteries demonstrate normal caliber, and join to form a normal appearing basilar artery. Flow within the posterior cerebral arteries is normal and symmetric. No aneurysms are seen. NECK CT ANGIOGRAPHY: Carotid system: The great vessels demonstrate a conventional anatomy as they arise from the aortic arch. The origins of the common carotid arteries appear patent. The common carotid arteries demonstrate normal caliber and courses. The bifurcation regions are both widely patent. The internal carotid arteries demonstrate normal calibers and courses. Posterior circulation: The origins of the vertebral arteries both appear widely patent. The more superior extracranial portions of both vertebral arteries also demonstrate normal courses and calibers. They join to form a normal appearing basilar artery. Soft tissues: Visualized neck soft tissues demonstrate no suspicious abnormalities. Bones: No suspicious bony lesions. Visualized cervical spine appears normally aligned. IMPRESSION: 1. No acute intracranial process. 2. Unremarkable CTA head. No stenosis, aneurysm, occlusion, or focal filling defect. 3. Widely patent carotids. Comment: Findings were discussed with Dr. Schilling on 05/11/2023 at 1138 hours Any quantitative measurements of stenosis were performed using NASCET criteria. Dictated by: Sen Enriquez M.D. on 05/11/2023 at 11:35 Approved by: Sen Enriquez M.D. on 05/11/2023 at 11:46
[2023-05-11 10:44] LABS: Add Manual Diff / Slide Review NO; Basophils Absolute Auto 100 /uL (0-100); Basophils Percent Auto 1.2 % (0-2); Eosinophils Absolute Auto 200 /uL (0-450); Eosinophils Percent Auto 3.9 % (2-4); Hematocrit 37.3 % (36-46); Hemoglobin 12.7 g/dL (12.0-16.0); Lymphocytes Absolute Auto 1400 /uL (1100-4500); Lymphocytes Percent Auto 27.9 % (25-40); Mean Corpuscular HGB Conc 34.1 % (30-36); Mean Corpuscular Hemoglobin 32.5 PG (26-34); Mean Corpuscular Volume 95.5 fL (80-100); Monocytes Absolute Auto 400 /uL (0-900); Monocytes Percent Auto 7.8 % (3-14); Neutrophils Absolute Auto 3000 /uL (1500-7000); Neutrophils Percent Auto 59.2 % (50-75); Platelet Count 208 X10^3/uL (150-400); Red Blood Cell Count 3.91 X10^6/uL (4.0-5.2); Red Cell Distribution Width 13.7 % (11.6-14.8); White Blood Cell Count 5.1 X10^3/uL (4.5-11.0)
[2023-05-11 10:59] LABS: Prothrombin Time 11.1 SECONDS (10.1-12.7)
[2023-05-11 11:01] LABS: PTT Partial Thromboplastin Tim 30 SECONDS (26-36)
[2023-05-11 11:07] LABS: Alanine Aminotransferase 24 IU/L (<35); Albumin 4.2 g/dL (3.5-5.0); Albumin Globulin Ratio 1.5 (1.0-2.8); Alkaline Phosphatase 74 U/L (38-126); Aspartate Aminotransferase 33 IU/L (14-36); BUN Creatinine Ratio 28.9 (6-22); Bilirubin Total 0.6 mg/dL (0.2-1.3); Blood Urea Nitrogen 26 mg/dL (7-17); Calcium 9.2 mg/dL (8.4-10.2); Carbon Dioxide 30 mmol/L (22-32); Chloride 102 mmol/L (98-107); Creatine Kinase 97 U/L (30-135); Estimated Glomerular Filt Rate > 60 mL/min (>60); Ethanol (ETOH) < 10 mg/dL; Globulin 2.8 g/dL (1.7-4.1); Glucose 114 mg/dL (80-110); HEMOLYSIS < 15 (0-50); Potassium 4.5 mmol/L (3.4-5.1); Sodium 137 mmol/L (137-145)
--- NOTE | 2023-05-11 11:15 | PC.NURSE ---
Received report from AVELINO Cope. Pt resting comfortably with spouse at bedside. Denies new symptoms or any needs at this time.
[2023-05-11 11:18] LABS: Troponin I < 0.012 ng/mL (0.01-0.034)
[2023-05-11 12:39] LABS: UR Morphine/Opiate cutoff 300 Negative (Negative); Ur Creatinine Normal (Normal); Ur Specific Gravity Normal (Normal); Urine Amphetamines Negative (Negative); Urine Barbiturates Negative (Negative); Urine Benzodiazepines Negative (Negative); Urine Cocaine Negative (Negative); Urine MDMA Negative (Negative); Urine Methadone Negative (Negative); Urine Methamphetamines Negative (Negative); Urine Oxycodone Negative (Negative); Urine Phencyclidine Negative (Negative); Urine Tetrahydrocannabinol Negative (Negative); Urine Tricyclic Antidepressant Negative (Negative); Urine pH Normal (Normal)
[2023-05-11 12:39] LABS: Appearance Urine UA CLEAR; Bilirubin Urine UA NEGATIVE (NEGATIVE); Color Urine UA YELLOW; Glucose Urine UA NEGATIVE (Negative); Ketones Urine UA NEGATIVE (NEGATIVE); Leukocyte Esterase Urine UA NEGATIVE (NEGATIVE); Nitrite Urine UA NEGATIVE (Negative); Occult Blood Urine UA 3+ (Negative); Protein Urine UA TRACE (Negative); Specific Gravity Urine UA 1.015 (1.000-1.035); Urobilinogen Urine UA 0.2 E.U./dL (0.2)
--- NOTE | 2023-05-11 12:43 | DI.RAD.S_ITS ---
PROCEDURE: XR CHEST 1V INDICATIONS: SOB TECHNIQUE: One view of the chest was acquired. COMPARISON: [facility], CR, XR CHEST 1V, 12/20/2021, 9:18. FINDINGS: Surgical changes and devices: None. Lungs and pleura: Lungs are clear. No pleural effusions or pneumothorax. Mediastinum: Mediastinal contours appear normal. Heart size is normal. Bones and chest wall: No suspicious bony lesions. Overlying soft tissues appear unremarkable. IMPRESSION: No evidence acute pulmonary process. Dictated by: Sen Enriquez M.D. on 05/11/2023 at 13:24 Approved by: Sen Enriquez M.D. on 05/11/2023 at 13:24
--- NOTE | 2023-05-11 12:45 | ED.GENADULT ---
HPI - General Adult General Chief complaint: Dizziness Stated complaint: dizzy, neck pain, lighting bolt sensation in head Time Seen by Provider: 05/11/23 10:14 Source: patient Mode of arrival: Ambulatory History of Present Illness HPI narrative: 78-year-old female nonsmoker with history of what sounds like chronic neck pain and dizziness that has been evaluated for many years presents with an episode of shortness of breath earlier this morning. She states she went to bed in her normal state of health without any issue and even woke up feeling completely fine. She had a brief episode of shortness of breath that resolved prior to her arrival. She denies chest pain or palpitations. She denies any runny nose, sore throat or cough. She denies fever, chills, nausea or vomiting. She states that she is been having episodes with lightening bolt type headaches and word-finding for the past 3 years or so, and thinks it started in the aftermath of having COVID. Related Data Home Medications Medication Instructions Recorded Confirmed Red [place] 1 tab PO BID 12/20/21 12/20/21 ascorbic acid (vitamin C) 1 tab PO DAILY 12/20/21 12/20/21 omega 7-nww-inq-fish oil 100 1 cap PO DAILY 12/20/21 12/20/21 mg-160 mg-1,000 mg capsule (Fish Oil) Allergies Allergy/AdvReac Type Severity Reaction Status Date / Time meperidine Allergy Verified 05/11/23 10:15 Review of Systems Review of Systems Narrative: GENERAL: Denies chills, fatigue, malaise, fever, sweats. HEENT: Denies sinus pain, ear pain, sore throat, difficulty swallowing, dizziness. RESPIRATORY: Denies dyspnea, cough, wheezing, hemoptysis, sputum. CARDIOVASCULAR: Denies chest pain, palpitations, orthopnea, edema, GASTROINTESTINAL: Denies nausea, vomiting, abdominal pain, diarrhea, constipation, melena. : Denies dysuria, frequency, incontinence, hematuria, urinary retention. MUSCULOSKELETAL: denies weakness, joint pain, or bony pain SKIN: Denies rash, skin lesions, or other NEUROLOGIC: Denies weakness, headache, numbness, change in speech, confusion, seizures, incoordination. PSYCHIATRIC: No concerning psychosocial issues. 12 point review of systems is negative except for those stated above Patient History Medical History (Updated 05/11/23 @ 13:28 by Jaylon Schilling DO) Cervical spine arthritis GERD (gastroesophageal reflux disease) Healthy adult Social History household members: spouse Smoking Status: Never smoker alcohol intake: never substance use type: does not use Smoking Status: Never smoker alcohol intake frequency: holidays/special occasions only Substance Use Type: does not use Exam Initial Vital Signs Initial Vital Signs: Vital Signs Temperature 98.3 F 05/11/23 10:15 Pulse Rate 81 05/11/23 10:15 Respiratory Rate 16 05/11/23 10:15 Blood Pressure 179/82 H 05/11/23 10:15 Pulse Oximetry 95 05/11/23 10:15 Oxygen Delivery Method Room Air 05/11/23 10:15 Course Orders Ordered: ED Orders 05/11/23 10:28 CT Stroke Stat EKG-12 Lead Stat 05/11/23 10:29 CT angio head and neck Stat 05/11/23 10:37 Complete Blood Count AUTO DIFF Stat Comprehensive Metabolic Panel Stat Ethanol (ETOH) Stat PTT Partial Thromboplastin Aaron Stat Prothrombin Time INR Stat Troponin & CK Cardiac Panel Stat 05/11/23 12:10 Urinalysis and Microscopic Stat 05/11/23 12:20 Urine Drug Screen, Rapid Stat 05/11/23 12:43 Chest [XR chest 1V] Stat Vital Signs Vital signs: Vital Signs - 8 hr 05/11/23 10:15 05/11/23 10:53 05/11/23 10:54 Temperature 98.3 F Pulse Rate 81 60 Respiratory Rate 16 14 Blood Pressure 179/82 H 174/79 H Pulse Oximetry 95 95 Oxygen Delivery Method Room Air 05/11/23 10:54 05/11/23 11:00 05/11/23 11:00 Temperature Pulse Rate 61 58 L Respiratory Rate 12 10 L Blood Pressure 159/69 H Pulse Oximetry 96 95 Oxygen Delivery Method 05/11/23 11:30 05/11/23 11:31 05/11/23 11:31 Temperature Pulse Rate 54 L 53 L Respiratory Rate 15 17 Blood Pressure 152/67 H Pulse Oximetry 95 94 Oxygen Delivery Method 05/11/23 12:00 05/11/23 12:00 05/11/23 12:13 Temperature Pulse Rate 57 L 55 L Respiratory Rate 15 12 Blood Pressure 158/69 H Pulse Oximetry 95 97 Oxygen Delivery Method 05/11/23 12:13 05/11/23 12:30 05/11/23 12:31 Temperature Pulse Rate 56 L Respiratory Rate 22 Blood Pressure 161/66 H 164/70 H Pulse Oximetry 98 Oxygen Delivery Method 05/11/23 12:31 05/11/23 13:00 05/11/23 13:01 Temperature Pulse Rate 61 56 L 56 L Respiratory Rate 12 20 21 Blood Pressure Pulse Oximetry 97 98 97 Oxygen Delivery Method 05/11/23 13:01 05/11/23 13:35 05/11/23 13:30 Temperature Pulse Rate Respiratory Rate Blood Pressure 172/72 H 154/94 H Pulse Oximetry Oxygen Delivery Method Room Air 05/11/23 13:30 Temperature Pulse Rate 65 Respiratory Rate 20 Blood Pressure Pulse Oximetry 95 Oxygen Delivery Method Medical Decision Making Lab Data 05/11/23 10:37 05/11/23 10:37 Labs: Lab Results 05/11/23 05/11/23 05/11/23 Range/Units 10:37 10:37 10:37 WBC 5.1 (4.5-11.0) X10^3/uL RBC 3.91 L (4.0-5.2) X10^6/uL Hgb 12.7 (12.0-16.0) g/dL Hct 37.3 (36-46) % MCV 95.5 (80-100) fL MCH 32.5 (26-34) PG MCHC 34.1 (30-36) % RDW 13.7 (11.6-14.8) % Plt Count 208 (150-400) X10^3/uL Neut % (Auto) 59.2 (50-75) % Lymph % (Auto) 27.9 (25-40) % [place] % (Auto) 7.8 (3-14) % Eos % (Auto) 3.9 (2-4) % Baso % (Auto) 1.2 (0-2) % Neut # (Auto) 3000 (7113-8119) /uL Lymph # (Auto) 1400 (3516-3673) /uL [place] # (Auto) 400 (0-900) /uL Eos # (Auto) 200 (0-450) /uL Baso # (Auto) 100 (0-100) /uL PT 11.1 (10.1-12.7) SECONDS INR 1.0 (0.9-1.3) APTT 30 (26-36) SECONDS Sodium 137 (137-145) mmol/L Potassium 4.5 (3.4-5.1) mmol/L Chloride 102 (98-107) mmol/L Carbon Dioxide 30 (22-32) mmol/L BUN 26 H (7-17) mg/dL Creatinine 0.90 (0.52-1.04) mg/dL Estimated GFR > 60 (>60) mL/min BUN/Creatinine Ratio 28.9 H (6-22) Glucose 114 H (80-110) mg/dL Calcium 9.2 (8.4-10.2) mg/dL Total Bilirubin 0.6 (0.2-1.3) mg/dL AST 33 (14-36) IU/L ALT 24 (<35) IU/L Alkaline Phosphatase 74 (38-126) U/L Total Creatine Kinase 97 (30-135) U/L Troponin I < 0.012 (0.01-0.034) ng/mL Total Protein 7.0 (6.3-8.2) g/dL Albumin 4.2 (3.5-5.0) g/dL Globulin 2.8 (1.7-4.1) g/dL Albumin/Globulin Ratio 1.5 (1.0-2.8) Urine Color Urine Appearance Urine pH (4.5-8.0) Ur Specific [place] (1.000-1.035) Urine Protein (Negative) Urine Glucose (UA) (Negative) g/dL Urine Ketones (NEGATIVE) Urine Occult Blood (Negative) Urine Nitrate (Negative) Urine Bilirubin (NEGATIVE) Urine Urobilinogen (0.2) E.U./dL Ur Leukocyte Esterase (NEGATIVE) Urine RBC (0-5/HPF) Urine WBC (0-5/HPF) Ur Squamous Epith Cells (0-5/HPF) Urine Bacteria (None) Ur Culture Indicated? U Opiates 300ng/mL cut (Negative) Ur Oxycodone Screen (Negative) Urine Methadone Screen (Negative) Ur Barbiturates Screen (Negative) U Tricyclic Antidepress (Negative) Ur Phencyclidine Scrn (Negative) Ur Amphetamines Screen (Negative) U Methamphetamines Scrn (Negative) Ur MDMA Scrn (Ecstasy) (Negative) U Benzodiazepines Scrn (Negative) Urine Cocaine Screen (Negative) U Marijuana (THC) Screen (Negative) Ethyl Alcohol < 10 ( - 10) mg/dL 05/11/23 05/11/23 Range/Units 12:10 12:20 WBC (4.5-11.0) X10^3/uL RBC (4.0-5.2) X10^6/uL Hgb (12.0-16.0) g/dL Hct (36-46) % MCV (80-100) fL MCH (26-34) PG MCHC (30-36) % RDW (11.6-14.8) % Plt Count (150-400) X10^3/uL Neut % (Auto) (50-75) % Lymph % (Auto) (25-40) % [place] % (Auto) (3-14) % Eos % (Auto) (2-4) % Baso % (Auto) (0-2) % Neut # (Auto) (7971-5561) /uL Lymph # (Auto) (5648-3501) /uL [place] # (Auto) (0-900) /uL Eos # (Auto) (0-450) /uL Baso # (Auto) (0-100) /uL PT (10.1-12.7) SECONDS INR (0.9-1.3) APTT (26-36) SECONDS Sodium (137-145) mmol/L Potassium (3.4-5.1) mmol/L Chloride (98-107) mmol/L Carbon Dioxide (22-32) mmol/L BUN (7-17) mg/dL Creatinine (0.52-1.04) mg/dL Estimated GFR (>60) mL/min BUN/Creatinine Ratio (6-22) Glucose (80-110) mg/dL Calcium (8.4-10.2) mg/dL Total Bilirubin (0.2-1.3) mg/dL AST (14-36) IU/L ALT (<35) IU/L Alkaline Phosphatase (38-126) U/L Total Creatine Kinase (30-135) U/L Troponin I (0.01-0.034) ng/mL Total Protein (6.3-8.2) g/dL Albumin (3.5-5.0) g/dL Globulin (1.7-4.1) g/dL Albumin/Globulin Ratio (1.0-2.8) Urine Color Yellow Urine Appearance Clear Urine pH 8.0 (4.5-8.0) Ur Specific [place] 1.015 (1.000-1.035) Urine Protein Trace H (Negative) Urine Glucose (UA) Negative (Negative) g/dL Urine Ketones Negative (NEGATIVE) Urine Occult Blood 3+ H (Negative) Urine Nitrate Negative (Negative) Urine Bilirubin Negative (NEGATIVE) Urine Urobilinogen 0.2 (0.2) E.U./dL Ur Leukocyte Esterase Negative (NEGATIVE) Urine RBC 5-10/hpf H (0-5/HPF) Urine WBC None seen (0-5/HPF) Ur Squamous Epith Cells 0-1 /hpf D (0-5/HPF) Urine Bacteria None seen (None) Ur Culture Indicated? Cult not indicated U Opiates 300ng/mL cut Negative (Negative) Ur Oxycodone Screen Negative (Negative) Urine Methadone Screen Negative (Negative) Ur Barbiturates Screen Negative (Negative) U Tricyclic Antidepress Negative (Negative) Ur Phencyclidine Scrn Negative (Negative) Ur Amphetamines Screen Negative (Negative) U Methamphetamines Scrn Negative (Negative) Ur MDMA Scrn (Ecstasy) Negative (Negative) U Benzodiazepines Scrn Negative (Negative) Urine Cocaine Screen Negative (Negative) U Marijuana (THC) Screen Negative (Negative) Ethyl Alcohol ( - 10) mg/dL Urine Dip Bedside Urine Glucose Negative Bedside Urine Bilirubin - Negative Bedside Urine Ketone - Negative Urine Specific [place] 1.010 Bedside Urine Occult Blood +++ Bedside Urine pH 8.0 Bedside Urine Protein - Negative Bedside Urine Urobilinogen - Negative Bedside Urine Nitrite - Negative Bedside Urine Leukocytes - Negative Esterase Point of care testing: Urine Dip Bedside Urine Glucose Negative Bedside Urine Bilirubin - Negative Bedside Urine Ketone - Negative Urine Specific [place] 1.010 Bedside Urine Occult Blood +++ Bedside Urine pH 8.0 Bedside Urine Protein - Negative Bedside Urine Urobilinogen - Negative Bedside Urine Nitrite - Negative Bedside Urine Leukocytes - Negative Esterase [facility] [place] Narrative Medical decision making narrative: 78 year old patient presents with brief episode of shortness of breath resolves Multiple etiologies for patient's symptoms considered including, but not limited to: [Pneumonia versus arrhythmia versus other] Prior Charts reviewed in our EMR Primary Historian: patient Labs reviewed and interpreted by myself: No significant abnormalities Imaging reviewed: Imaging of head and neck as well as chest x-ray are unremarkable Patient's symptoms improved over duration of stay with above-stated therapies. Findings and discharge diagnosis discussed with patient/family followed by verbalization of understanding Return precautions discussed with patient/family whom verbalize understanding of diagnosis and plan Discharge Plan Departure Patient Disposition: Home Clinical Impression: Acute dyspnea Instructions: DI for Shortness of Breath Activity Restrictions/Additional Instructions: *You have been diagnosed with [dyspnea resolved. As we discussed your history and physical exam are reassuring. Labs, EKG and imaging show no significant abnormal findings that would require any specific treatment or intervention] *What to do: *Please continue to take your regular medications as directed. *Please follow up with your primary care provider in 2-3 days, call for an appointment. Let them know you were seen in the Emergency Department and that we ask that you be seen in follow up. We will electronically transmit a record of today's note if your PCP is in our system *If you do not have a primary care provider please contact the [facility] Resource line at [phone]. They will ask some questions about your medical history and help get you set up with a doctor in the community. *Return to Emergency Department if you should have any new, worsening or concerning symptoms, such as [fever greater than 101 F, shaking chills, worsening pain, persistent vomiting or other bothersome symptoms] Prescriptions: No Action Fish Oil 100-160-1,000 mg Capsule 1 cap PO DAILY [place] 1 tab PO BID ascorbic acid (vitamin C) 1 tab PO DAILY Referrals: Miscellaneous,DoctorMD [Primary Care Provider] - Stand Alone Forms: Patient Portal/API
[2023-05-11 12:47] LABS: RBC Urine 5-10/HPF (0-5/HPF)
[2023-05-11 12:48] LABS: Bacteria Urine None Seen; Culture Indicated Urine Cult Not Indicated; Squamous Epithelial Cell Urine 0-1 /HPF (0-5/HPF); WBC Urine None Seen (0-5/HPF)
== END 2023-05-11 13:35 | disposition home or self-care (01) ==
PROVIDERS: Emergency Provider Emergency Medicine
DX: R06.00 Dyspnea, unspecified (principal); R29.818 Other symptoms and signs involving the nervous system; R07.9 Chest pain, unspecified
CPT/HCPCS: 36415; 70450; 70496; 70498; 71045; 80053; 80305; 80320; 81001; 81003; 82550; 84484; 85025; 85610; 85730; 93005; 93010; 99284

== ENCOUNTER 2023-11-25 08:07 | Emergency (ER) | payer MEDICARE, SELFPAY ==
[2021-12-20 14:12] VITALS: BMI 27.3
[2023-11-25 08:28] VITALS: BP 167/102; PULSE 89; RESP 18; TEMP 36.6; O2SAT 96; BMI 25.0
--- NOTE | 2023-11-25 08:30 | DI.RAD.S_ITS ---
PROCEDURE: XR FOOT LT MIN 3V INDICATIONS: foot/ankle pop/ surgery with hardware 08/2023 TECHNIQUE: 3 views of the foot were acquired. COMPARISON: [facility], , FOOT 3V LEFT, 07/11/2007, 9:04. FINDINGS: Bones: Postsurgical changes are seen at the 1st and 2nd tarsometatarsal joints with plate and screw construct and solid osseous fusion across the joint lines. Metal hardware appears to be intact. Bunionectomy changes are seen at the 1st metatarsal head. There is generalized osteopenia. No acute osseous fracture is seen. Small posterior and plantar calcaneal enthesophytes. Soft tissues: No suspicious soft tissue calcification. IMPRESSION: 1. Postsurgical changes from prior 1st and 2nd tarsometatarsal joint arthrodesis and 1st metatarsal bunionectomy. 2. No acute osseous abnormality. If clinical suspicion and/or symptoms persist, additional imaging with repeat plain films, or advanced imaging (e.g. CT, MRI) may be helpful for further assessment. Approved by: Tal Mendoza M.D. on 11/25/2023 at 9:05
--- NOTE | 2023-11-25 08:30 | DI.RAD.S_ITS ---
PROCEDURE: XR ANKLE LT MIN 3V INDICATIONS: foot/ankle pop/ surgery with hardware 08/2023 TECHNIQUE: 3 views of the ankle were acquired. COMPARISON: None. FINDINGS: Bones: Postsurgical changes are partially included in the midfoot with 2 plate and screw constructs. Metal hardware appears intact where visualized. No acute osseous fracture is seen. Small posterior and plantar calcaneal enthesophytes. Soft tissues: No suspicious soft tissue calcification. IMPRESSION: Postsurgical changes at the 1st and 2nd tarsometatarsal joints. No acute osseous abnormality. Approved by: Tal Mendoza M.D. on 11/25/2023 at 9:03
[2023-11-25 08:33] VITALS: PULSE 88
[2023-11-25 08:35] VITALS: PULSE 68; O2SAT 97
--- NOTE | 2023-11-25 09:03 | ED.EXTPRO ---
HPI - Extremity Problem General Chief complaint: Extremity Problem,Nontraumatic Stated complaint: walking and her left foot popped Time Seen by Provider: 11/25/23 08:19 Source: patient Mode of arrival: Ambulatory History of Present Illness HPI Narrative: 78-year-old female presents for left ankle injury. She was walking with her when she felt her ankle ?pop?. She is pain in the left lateral foot and left ankle. Denies trauma. Related Data Home Medications Medication Instructions Recorded Confirmed Red Rice 1 tab PO BID 12/20/21 12/20/21 ascorbic acid (vitamin C) 1 tab PO DAILY 12/20/21 12/20/21 omega 8-khj-ptq-fish oil 100 1 cap PO DAILY 12/20/21 12/20/21 mg-160 mg-1,000 mg capsule (Fish Oil) Allergies Allergy/AdvReac Type Severity Reaction Status Date / Time meperidine Allergy Verified 05/11/23 10:15 Review of Systems Review of Systems Narrative: Negative except as noted above Patient History Medical History Cervical spine arthritis Healthy adult GERD (gastroesophageal reflux disease) Social History household members: spouse Smoking Status: Never smoker alcohol intake: never substance use type: does not use Smoking Status: Never smoker alcohol intake frequency: holidays/special occasions only Substance Use Type: does not use Exam Initial Vital Signs Initial Vital Signs: Vital Signs Temperature 97.8 F 11/25/23 08:28 Pulse Rate 89 11/25/23 08:28 Respiratory Rate 18 11/25/23 08:28 Blood Pressure 167/102 H 11/25/23 08:28 Pulse Oximetry 96 11/25/23 08:28 Oxygen Delivery Method Room Air 11/25/23 08:28 Const: Awake, alert, no acute distress, nontoxic appearing Cardiac: regular rate, regular rhythm RESP: unlabored, clear bilaterally, no wheezing GI: Atraumatic, soft, nontender, nondistended, no rebound, no guarding MSK: Pain behind left ankle along the Achilles tendon, Normal schaffer's test Skin: Warm, Dry, intact, no rashes Neuro: AO x3, CN II-XII grossly intact, moves all extremities Psych: affect normal, mood normal, not suicidal, not homicidal Course Orders Ordered: ED Orders 11/25/23 08:30 XR ankle LT min 3V Stat XR foot LT min 3V Stat Vital Signs Vital signs: Vital Signs - 8 hr 11/25/23 08:28 11/25/23 08:33 Temperature 97.8 F Pulse Rate 89 Pulse Rate [Left Dorsalis Pedis] 88 Respiratory Rate 18 Blood Pressure 167/102 H Pulse Oximetry 96 Oxygen Delivery Method Room Air MDM - Extremity (Nontraumatic) MDM Narrative Medical decision making narrative: Atraumatic ankle pain. Patient states she heard a ?pop? after walking. Suspect some component of Achilles injury. X-rays are negative for acute traumatic pathology. Patient does have negative Schaffer's test, this does not rule out partial tear. Placed in a posterior short splint, patient is already followed by Dr. Munroe of Orthopedics. She was counseled to call the orthopedic office for follow up appointment. Tylenol, ice, elevation advised at home. Discharge Plan Departure Patient Disposition: Home Clinical Impression: Acute ankle pain Instructions: DI for Achilles Tendon Rupture Activity Restrictions/Additional Instructions: It is possible that you may have a slight tear in your Achilles tendon or strain of the tendon. Wear the splint to help support your ankle. Please follow up with your orthopedic surgeon. Take tylenol for pain, apply ice as needed for comfort. Keep your leg elevated to decrease any swelling Prescriptions: No Action Fish Oil 100-160-1,000 mg Capsule 1 cap PO DAILY Red Rice 1 tab PO BID ascorbic acid (vitamin C) 1 tab PO DAILY Referrals: Quiana Marie MD [Physician] - Miscellaneous,MD Alfonso [Primary Care Provider] - Stand Alone Forms: Patient Portal/API
[2023-11-25 09:47] VITALS: BP 162/83
== END 2023-11-25 09:47 | disposition home or self-care (01) ==
PROVIDERS: Emergency Provider Emergency Medicine
DX: M25.572 Pain in left ankle and joints of left foot (principal)
CPT/HCPCS: 29515; 73610; 73630; 99283

== ENCOUNTER 2023-12-09 07:11 | Emergency (ER) | payer MEDICARE, SELFPAY ==
[2021-12-20 14:12] VITALS: BMI 27.3
[2023-12-09 07:21] VITALS: BP 186/87; PULSE 80; RESP 17; TEMP 36.7; O2SAT 97; BMI 26.5
--- NOTE | 2023-12-09 07:28 | ED.FALL ---
HPI - Fall General Chief Complaint: Fall Stated Complaint: fell in driveway, hit left side of face, neck hurt Time Seen by Provider: 12/09/23 07:20 Source: patient Mode of arrival: Ambulatory History of Present Illness HPI Narrative: Patient is a 78-year-old female. Not on anticoagulation. Two days ago she fell while going up her driveway. States she tripped and fell. She did hit her chin on the ground. No loss of consciousness. No other injuries from the event. She was able to get up and walk afterwards. Since that time she has had left-sided TMJ pain. She also had right-sided neck pain. She did not hit her head. She did go to the dentist yesterday who according to the patient did a very limited exam and told her that she needed to come to the emergency department. No x-rays were obtained. She states that she feels like the left TMJ area is painful. She is able to eat but feels like it does not open and move correctly. Related Data Home Medications Medication Instructions Recorded Confirmed Red Rice 1 tab PO BID 12/20/21 12/20/21 ascorbic acid (vitamin C) 1 tab PO DAILY 12/20/21 12/20/21 omega 8-kos-myv-fish oil 100 1 cap PO DAILY 12/20/21 12/20/21 mg-160 mg-1,000 mg capsule (Fish Oil) Allergies Allergy/AdvReac Type Severity Reaction Status Date / Time meperidine Allergy Verified 12/09/23 07:27 Review of Systems Constitutional Constitutional: Reports system reviewed and no additional complaints, except as documented ENT Ears, Nose, Mouth, and Throat: Reports system reviewed and no additional complaints, except as documented Integumentary/Breasts Skin/Breast: Reports system reviewed and no additional complaints, except as documented Neurologic Neurologic: Reports system reviewed and no additional complaints, except as documented Hematologic/Lymphatic On Anticoagulants: No Patient History Medical History (Updated 12/09/23 @ 08:31 by Aaron Moore DO) Cervical spine arthritis Healthy adult GERD (gastroesophageal reflux disease) Social History household members: spouse Smoking Status: Never smoker alcohol intake: never substance use type: does not use Smoking Status: Never smoker alcohol intake frequency: holidays/special occasions only Substance Use Type: does not use Exam Initial Vital Signs Initial Vital Signs: Vital Signs Temperature 98.1 F 12/09/23 07:21 Pulse Rate 80 12/09/23 07:21 Respiratory Rate 17 12/09/23 07:21 Blood Pressure 186/87 H 12/09/23 07:21 Pulse Oximetry 97 12/09/23 07:21 Oxygen Delivery Method Room Air 12/09/23 07:21 Const General: cooperative, comfortable and No ill appearing HENMT Head: normal to inspection and normocephalic Nose: external nose normal Face and sinus: normal facial exam Mouth: oral mucosae normal and moist mucous membranes Teeth and gingiva: other (Does have missing teeth but not new) Back/Spine/Pelvis Cervical Spine: cervical muscular tenderness Skin General: no rashes or lesions noted Neuro General: patient alert, patient awake, patient oriented x3 and moves all extremities Extrem General: capillary refill normal Course Orders Ordered: ED Orders 12/09/23 07:28 CT cervical spine wo con Stat CT facial bones wo con Stat Vital Signs Vital signs: Vital Signs - 8 hr 12/09/23 07:21 Temperature 98.1 F Pulse Rate 80 Respiratory Rate 17 Blood Pressure 186/87 H Pulse Oximetry 97 Oxygen Delivery Method Room Air MDM - Fall Imaging Data CT - cervical spine: Radiologist's Impression: PROCEDURE: CT CERVICAL SPINE WO CON INDICATIONS: R sided neck pain after fall TECHNIQUE: Noncontrast 3 mm thick sections acquired from the skull base to the T4 level. Sagittal and coronal reformats were then constructed. For radiation dose reduction, the following was used: automated exposure control, adjustment of mA and/or kV according to patient size. COMPARISON: None. FINDINGS: Image quality: Diagnostic Bones: No displaced fracture. No traumatic subluxation. Xgzj-rg-cwfacape degenerative changes. Straightening of normal cervical lordosis. Small sclerotic bone lesions may represent bone islands. Soft tissues: No apical pneumothorax. No pathologic prevertebral soft tissue swelling. IMPRESSION: No displaced fracture or traumatic subluxation. If there is high concern for further derangement, consider MRI evaluation. Hhhf-hf-yyensnco degenerative changes. CT facial bones: Radiologist's Impression: PROCEDURE: CT FACIAL BONES WO CON INDICATIONS: L TMJ pain after fall TECHNIQUE: Noncontrast 2.5 mm thick axial images acquired from the mandible through the frontal sinuses, with coronal and sagittal reformatting. For radiation dose reduction, the following was used: automated exposure control, adjustment of mA and/or kV according to patient size. COMPARISON: None. FINDINGS: Image quality: Diagnostic Bones: No displaced fracture. Orbital harp are intact. Nonacute appearing nasal bone deformity. Mandible is intact. Zygomatic arches and pterygoid plates are intact. No skull base fracture. Sinuses and mastoids: No significant opacification. Soft tissues: No drainable fluid collection. There may be a soft tissue lesion in the left posterior parotid gland (3/41) measuring 1.2 cm. Brain: Unremarkable, partially visualized. IMPRESSION: No displaced fracture or dislocation. Spine findings are separately dictated. Possible 1.2 cm soft tissue lesion in the left posterior parotid, differential includes a intraparotid lymph node. Consider nonurgent sonographic follow-up. [facility] Narrative Medical decision making narrative: She has no obvious acute injuries to her teeth. She is able to open and close her mouth. CT scan shows no fractures of the mandible or other facial fractures. Cervical spine CT also does not show any signs of fractures. She has no other injuries from the event. She does have an incidental finding of the parotid gland lesion. I discuss this with her. I was unable to feel this on her exam although she does have a small lesion on the posterior aspect of the angle of the mandible that she states has been there for ?years? I am not convinced that this is what was referenced on the CT scan. I did recommend that she call her primary doctor for a nonemergent ultrasound. She was given return precautions. She expressed understanding and agreement. Discharge Plan Departure Patient Disposition: Home Clinical Impression: Jaw pain, Lesion of parotid gland Instructions: Soft Diet Activity Restrictions/Additional Instructions: The CT scan today did not show any signs of a fracture. I recommend Tylenol/ibuprofen for any discomfort. You may want to consider eating a soft diet for the next several days. There was the incidental finding of the left-sided parotid gland (which is a salivary gland) lesion. This is not the result of your fall the other day. The radiologist did recommend a nonemergent ultrasound for follow-up. This can be ordered by your primary provider. Contact your primary provider for follow-up. Return to the emergency department for new symptoms. Prescriptions: No Action Fish Oil 100-160-1,000 mg Capsule 1 cap PO DAILY Red Rice 1 tab PO BID ascorbic acid (vitamin C) 1 tab PO DAILY Referrals: Miscellaneous,Doctor, MD [Primary Care Provider] - Stand Alone Forms: Patient Portal/API
[2023-12-09 08:32] VITALS: PULSE 68; RESP 16; O2SAT 98
== END 2023-12-09 08:36 | disposition home or self-care (01) ==
PROVIDERS: Emergency Provider Emergency Medicine
DX: R68.84 Jaw pain (principal); K11.9 Disease of salivary gland, unspecified; M54.2 Cervicalgia; W01.0XXA Fall on same level from slipping, tripping and stumbling without subsequent striking against object, initial encounter
CPT/HCPCS: 70486; 72125; 99281; 99284

== ENCOUNTER → 2025-01-22 11:48 | Outpatient (CLI) | payer MEDICARE, SELFPAY ==
[2021-12-20 14:12] VITALS: BMI 27.3
--- NOTE | 2025-01-22 11:52 | DI.RAD.S_ITS ---
PROCEDURE: XR CHEST 2V INDICATIONS: Acute cough TECHNIQUE: 2 views of the chest were acquired. COMPARISON: [facility], CR, XR CHEST 1V, 05/11/2023, 12:48. [facility], CR, XR CHEST 1V, 12/20/2021, 9:18. FINDINGS AND IMPRESSION: No dense airspace consolidation or pleural effusion. Mild peribronchial thickening possibly viral etiology. Normal heart size. Degenerative osseous changes. Dictated by: Nicolas Quinn M.D. on 01/22/2025 at 13:35 Approved by: Nicolas Quinn M.D. on 01/22/2025 at 13:36
== END ==
PROVIDERS: PCP Family Medicine; Referring Provider Family Medicine; Visit Provider Family Medicine
DX: R05.1 Acute cough (principal)
CPT/HCPCS: 71046

== ENCOUNTER 2025-03-22 08:25 | Emergency (ER) | payer MEDICARE, SELFPAY ==
[2021-12-20 14:12] VITALS: BMI 27.3
--- NOTE | 2025-03-22 08:27 | ED.GENADULT ---
HPI - General Adult General Chief complaint: Extremity Problem,Nontraumatic Stated complaint: hip is in pain right side Time Seen by Provider: 03/22/25 08:26 Source: patient, RN notes reviewed and old records reviewed Mode of arrival: Ambulatory Limitations: no limitations History of Present Illness HPI narrative: 79-year-old female presents with complaint of right hip pain. Patient states she has a remote history of a fall with a crack but never required any surgical repair. She states this was several years ago. She denies any new recent trauma or injuries. States this morning was rolling over in the bed had significant increase in pain and has been persistent since. She states she will sometimes have pain but not quite as intense. She was increased pain with movement. Denies any bruising or skin changes. No warmth or erythema. Denies any radiation down her leg. Has had chronic knee issues with injections to the right knee and had a prior ankle injury. Does note some chronic back pain. Denies new weakness. She states no anticoagulants, states she does take medication for her heart. Does have some expressive aphasia which he states has been present for some time. Only reported allergies meperidine. Patient is accompanied by her . Related Data Home Medications Medication Instructions Recorded Confirmed Red Rice 1 tab PO BID 12/20/21 12/20/21 ascorbic acid (vitamin C) 1 tab PO DAILY 12/20/21 12/20/21 omega 5-cga-jnl-fish oil 100 1 cap PO DAILY 12/20/21 12/20/21 mg-160 mg-1,000 mg capsule (Fish Oil) Previous Rx's Medication Instructions Recorded tramadol 50 mg tablet 50 mg PO Q6H PRN pain #10 tabs 03/22/25 Allergies Allergy/AdvReac Type Severity Reaction Status Date / Time meperidine Allergy Verified 12/09/23 07:27 Review of Systems Review of Systems ROS Unobtainable: All systems reviewed & are unremarkable except as noted in HPI and below Patient History Medical History (Updated 03/22/25 @ 09:42 by Kalpana Fay DO) Cervical spine arthritis Healthy adult GERD (gastroesophageal reflux disease) Social History household members: spouse Smoking Status: Never smoker alcohol intake: never substance use type: does not use alcohol intake frequency: holidays/special occasions only Exam Narrative Exam Narrative: GENERAL: Alert and oriented x three, female in mild distress, patient does have expressive aphasia which is her normal per patient and family. HEENT: Head normocephalic, atraumatic, EOMI, pupils reactive, face symmetric, moist mucous membranes NECK: Supple, full range of motion CARDIOVASCULAR: Regular rate and rhythm without murmurs, rubs or gallops. RESPIRATORY: Breath sounds equal bilaterally, no wheezes rales or rhonchi. ABDOMEN: Soft, nontender. Normoactive bowel sounds all 4 quadrants. No guarding or rebound, rigidity, no mass : No CVA tenderness EXTREMITIES: Normal range of motion, no clubbing or edema. Neurovascularly intact. Patient has tenderness over the right greater trochanter, no rash, skin changes warmth or erythema, has a increased pain with flexion and extension but can go through range of motion. No other bony tenderness. Cap refills less than 2 seconds. 2+ dorsalis pedis. Normal sensation throughout. Patient has no midline lumbar vertebral tenderness has a little bit of tenderness over the SI joint on the right. NEUROLOGICAL: Cranial nerves II through XII grossly intact. Moving all extremities SKIN: Warm, dry, no petechiae, no rashes or lesions. Initial Vital Signs Initial Vital Signs: Vital Signs Temperature 97.6 F 03/22/25 08:35 Pulse Rate 77 03/22/25 08:35 Respiratory Rate 20 03/22/25 08:35 Blood Pressure 164/75 H 03/22/25 08:35 Pulse Oximetry 99 03/22/25 08:35 Oxygen Delivery Method Room Air 03/22/25 08:35 Course Orders Ordered: ED Orders 03/22/25 08:42 XR hip w pel RT 2V Stat Vital Signs Vital signs: Vital Signs - 8 hr 03/22/25 08:35 03/22/25 09:56 Temperature 97.6 F Pulse Rate 77 55 L Respiratory Rate 20 12 Blood Pressure 164/75 H 152/67 H Pulse Oximetry 99 98 Oxygen Delivery Method Room Air Room Air Medical Decision Making [facility] Narrative Medical decision making narrative: 79-year-old female no recent traumatic injury patient notes prior crack to her right hip that did not require surgical repair. Patient has been able to ambulate but has increased pain starting this morning. She did not defers anything for pain here today. Right hip x-ray, no kali acute plain film abnormality seen no fractures or dislocations pelvic ring appears intact no suspicious bony lesions. Moderate to severe superior joint space narrowing seen of the right hip. Associated remodeling changes with subchondral sclerosis or osteophyte formation. Intact appearing left hip arthroplasty hardware seen. Age-appropriate lower lumbar spine degenerative changes noted. Right pelvis clips are seen. Reviewed patient's findings with her and her family she was had no recent trauma or high suspicion for fracture has a setting of acute on chronic right hip pain. I suspect she maybe having degenerative changes or possibly a bursitis based on her description of symptoms. Would have patient follow up with primary care with a short course of pain medication. Discharge Plan Departure Patient Disposition: Home Clinical Impression: Hip pain, right Instructions: DI for Hip Pain Activity Restrictions/Additional Instructions: Follow up with your physician for rechecked. If having persistent symptoms you can follow up with your prior orthopedic surgeon. Contact information is included. I would recommend acetaminophen up to a 1000 mg every 6 hours and/or ibuprofen up to 600 mg every 6 hours needed for pain. If inadequate for pain take 1-2 tablets of narcotic pain medication every 6 hours as needed. This medication can make you sleepy do not drive, perform hazardous activities or make any major decisions while taking it. This medication will make you constipated please take a stool softener once to twice daily until stools are soft and regular. Prescription sent to [facility]. Please return if you are having rapidly worsening symptoms, unable to bear weight, new redness, warmth or skin changes, new numbness, tingling or weakness or other new or concerning changes. Prescriptions: New tramadol 50 mg tablet 50 mg PO Q6H PRN (Reason: pain) Qty: 10 0RF No Action Fish Oil 100-160-1,000 mg Capsule 1 cap PO DAILY Red Rice 1 tab PO BID ascorbic acid (vitamin C) 1 tab PO DAILY Referrals: Quiana Mraie MD [Physician] - Issac Cunningham MD [Primary Care Provider] - Stand Alone Forms: Patient Portal/API/Survey
[2025-03-22 08:35] VITALS: BP 164/75; PULSE 77; RESP 20; TEMP 36.4; O2SAT 99; BMI 26.2
--- NOTE | 2025-03-22 08:42 | DI.RAD.S_ITS ---
PROCEDURE: XR HIP W PEL IF DONE RT 2V INDICATIONS: R hip pain, remote fall TECHNIQUE: AP pelvis with lateral view(s) of the right hip(s). COMPARISON: None. FINDINGS: Bones: No fractures or dislocations. Pelvic ring appears intact. No suspicious bony lesions. There is moderate to severe superior joint space narrowing seen of the right hip, with associated remodeling changes with subchondral sclerosis and osteophyte formation. Intact appearing left hip arthroplasty hardware is seen. Age-appropriate lower lumbar spine degenerative changes are noted. Soft tissues: The visualized bowel gas pattern is normal. No suspicious soft tissue calcifications. Right pelvis clips are seen IMPRESSION: No kali acute plain film abnormality is seen. - If there is point tenderness (or other clinical suspicion for a fracture not seen on these images) then a dedicated CT could be considered for further evaluation, if clinically appropriate. Moderate to severe right hip degenerative change. Intact appearing left hip arthroplasty hardware. Dictated by: Aquilino Dyson M.D. on 03/22/2025 at 8:23 Approved by: Aquilino Dyson M.D. on 03/22/2025 at 8:24
[2025-03-22 09:56] VITALS: BP 152/67; PULSE 55; RESP 12; O2SAT 98
== END 2025-03-22 10:14 | disposition home or self-care (01) ==
PROVIDERS: Emergency Provider Emergency Medicine; PCP Family Medicine
DX: M25.551 Pain in right hip (principal)
CPT/HCPCS: 73502; 99281; 99283

== ENCOUNTER 2025-06-06 10:50 | Emergency (ER) | payer MEDICARE, SELFPAY ==
[2021-12-20 14:12] VITALS: BMI 27.3
[2025-06-06 10:58] VITALS: BP 178/83; PULSE 79; RESP 16; TEMP 36.3; O2SAT 97; BMI 21.0
--- NOTE | 2025-06-06 11:55 | ED_ITS ---
HPI - Neck Pain/Injury <Rebecca Harris PA-C - Last Filed: 06/06/25 14:25> General Chief Complaint: Neck Pain/Injury Stated Complaint: Neck pain 3 days Time Seen by Provider: 06/06/25 11:18 History of Present Illness HPI Narrative: Ms. Sparrow is a very pleasant 80-year-old female with a past medical history of TIA, expressive aphasia, hypertension, GERD, cervical arthritis who presents to the emergency department with her for worsening neck pain x3 days. Patient denies any inciting trauma or injury however starting 3 days ago she has been having worsening pain in her neck that is midline and on the left side primarily. She has the most difficulty rotating her head to the left with a exacerbation of pain into the left shoulder and some pain with range of motion of her head to the right. No pain with touching her chin to her chest but there is some pain with looking up. There is no numbness tingling or weakness in the extremities however pain does occasionally radiate into the shoulders. She has been using heat and cold therapy without relief. She denies headache, visual disturbance, trauma, fevers, chills, flu-like symptoms. She is able to provide her own history, her is here to supplement history. She does not take any blood thinners, denies medication allergies or CKD. Related Data Home Medications ?Medication ?Instructions ?Recorded ?Confirmed Red Rice 1 tab PO BID 12/20/21 ascorbic acid (vitamin C) 1 tab PO DAILY 12/20/2112/07 omega 3-[id number]-oug-fish oil 100 1 cap PO DAILY 12/20/21 0 12/20/21 mg-160 mg-1,000 mg capsule (Fish Oil) Previous Rx's ?Medication ?Instructions ?Recorded tramadol 50 mg tablet 50 mg PO Q6H PRN pain #10 ta bs 03/22/25 lidocaine 5 % topical patch 1 patch topical DAILY #30 ea 06/06/25 (Lidoderm) Allergies Allergy/AdvReac Type Severity Reaction Status Date / Time meperidine Allergy Verified 12/09/23 07:27 Review of Systems <Rebecca Harris PA-C - Last Filed: 06/06/25 14:25> Review of Systems ROS Unobtainable: All systems reviewed & are unremarkable except as noted in HPI and below Patient History <Rebecca Harris PA-C - Last Filed: 06/06/25 14:25> Medical History (Updated 06/06/25 @ 13:49 by Rebecca Harris PA-C) Cervical spine arthritis Healthy adult GERD (gastroesophageal reflux disease) Social History household members: spouse alcohol intake: never substance use type: does not use alcohol intake frequency: holidays/special occasions only Exam <Rebecca Harris PA-C - Last Filed: 06/06/25 14:25> Narrative Exam Narrative: GENERAL: 80 year old patient appears stated age. Well-developed patient, in no acute distress. She does have expressive aphasia but is able to provide her own history. HEAD: Atraumatic. Normocephalic. EYES: PERRL. Extraocular motions intact. No scleral icterus. No injection or drainage. ENT: Nose without bleeding, purulent drainage. Throat without erythema, tonsillar hypertrophy or exudate. Airway patent. NECK: Trachea midline. There is nonfocal midline cervical tenderness with no palpable deformities. There was also tenderness to palpation of the left paracervical spinal region in the left superior trapezius region. Patient does have full range of motion including left and right and flexion-extension of the cervical spine but she does have reproduction of pain with range of motion to the left and looking upward. CARDIOVASCULAR: Regular rate RESPIRATORY: ?Nonlabored respirations. ?Speaking in clear, full sentences. EXTREMITIES: Strong radial pulses bilaterally and brisk capillary refill on all of the fingertips. Patient does have reproducible left-sided neck and posterior shoulder pain with abduction of left shoulder. BACK: No midline thoracic or lumbar tenderness. NEURO: Alert and oriented. Speech is clear but single word responses due to expressive aphasia which is reported to be at baseline. Sensation and strength intact in the distribution of the median, ulnar, radial nerves bilaterally. SKIN: No rash or erythema of visible areas Initial Vital Signs Initial Vital Signs: Vital Signs Temperature 97.4 F L 06/06/25 10:58 Pulse Rate 79 06/06/25 10:58 Respiratory Rate 16 06/06/25 10:58 Blood Pressure 178/83 H 06/06/25 10:58 Pulse Oximetry 97 06/06/25 10:58 Oxygen Delivery Method Room Air 06/06/25 10:58 <John Perea MD - Last Filed: 06/07/25 09:37> Initial Vital Signs Initial Vital Signs: Vital Signs Temperature 97.4 F L 06/06/25 10:58 Pulse Rate 79 06/06/25 10:58 Respiratory Rate 16 06/06/25 10:58 Blood Pressure 178/83 H 06/06/25 10:58 Pulse Oximetry 97 06/06/25 10:58 Oxygen Delivery Method Room Air 06/06/25 10:58 Course <Rebecca Harris PA-C - Last Filed: 06/06/25 14:25> Orders Ordered: Discontinued Medications Acetaminophen (Acetaminophen 325 Mg Tablet) 975 mg PO NOW ONE Stop: 06/06/25 12:06 Last Admin: 06/06/25 12:21 Dose: 975 mg Documented By: RB Ketorolac Tromethamine (Ketorolac 30 Mg/Ml Vial) 30 mg IM NOW ONE Stop: 06/06/25 12:06 Last Admin: 06/06/25 12:21 Dose: 30 mg Documented By: RB Lidocaine (Lidocaine 5% Patch) 1 each TOP NOW ONE Stop: 06/06/25 12:06 Last Admin: 06/06/25 12:21 Dose: 1 each Documented By: RB Vital Signs Vital signs: Vital Signs - 8 hr 06/06/25 10:58 06/06/25 14:06 Temperature 97.4 F L 97.7 F Pulse Rate 79 57 L Respiratory Rate 16 16 Blood Pressure 178/83 H 147/67 H Pulse Oximetry 97 98 Oxygen Delivery Method Room Air Room Air <John Perea MD - Last Filed: 06/07/25 09:37> Orders Ordered: Discontinued Medications Acetaminophen (Acetaminophen 325 Mg Tablet) 975 mg PO NOW ONE Stop: 06/06/25 12:06 Last Admin: 06/06/25 12:21 Dose: 975 mg Documented By: RB Ketorolac Tromethamine (Ketorolac 30 Mg/Ml Vial) 30 mg IM NOW ONE Stop: 06/06/25 12:06 Last Admin: 06/06/25 12:21 Dose: 30 mg Documented By: RB Lidocaine (Lidocaine 5% Patch) 1 each TOP NOW ONE Stop: 06/06/25 12:06 Last Admin: 06/06/25 12:21 Dose: 1 each Documented By: RB Vital Signs Vital signs: Vital Signs - 8 hr 06/06/25 10:58 06/06/25 14:06 Temperature 97.4 F L 97.7 F Pulse Rate 79 57 L Respiratory Rate 16 16 Blood Pressure 178/83 H 147/67 H Pulse Oximetry 97 98 Oxygen Delivery Method Room Air Room Air MDM - Neck Pain/Injury <Rebecca Harris PA-C - Last Filed: 06/06/25 14:25> Medical Records Attestation: I reviewed the patient's medical records. Imaging Data CT - cervical spine: Radiologist's Impression: PROCEDURE: CT CERVICAL SPINE WO CON INDICATIONS: midline and L sided neck pain TECHNIQUE: Noncontrast 3 mm thick sections acquired from the skull base to the T4 level. Sagittal and coronal reformats were then constructed. For radiation dose reduction, the following was used: automated exposure control, adjustment of mA and/or kV according to patient size. COMPARISON: [facility], CT, CT CERVICAL SPINE WO CON, 12/09/2023, 7:35. FINDINGS: Image quality: Excellent. Bones: No fractures or dislocations. Loss of disc height, degenerative endplate changes and bilateral facet hypertrophic changes are noted throughout cervical spine more notably at C5-6 and C6-7 levels causing [id number] central canal stenosis and bilateral neural foraminal narrowing. Visualized superior ribs are intact. Soft tissues: Prevertebral soft tissues are normal in thickness. No paravertebral hematomas. No apical pneumothoraces. IMPRESSION: 1. No displaced fracture or traumatic subluxation. 2. Multilevel spondylitic changes throughout cervical spine more notably at C5-6 and C6-7 levels as above. Dictated by: Lorenzo Phillips M.D. on 06/06/2025 at 13:35 Approved by: Lorenzo Phillips M.D. on 06/06/2025 at 13:36 [facility] Narrative Medical decision making narrative: 80-year-old female with a past medical history of TIA, expressive aphasia, hypertension, GERD, cervical arthritis who presents to the emergency department with her for worsening neck pain x3 days. Differential diagnosis includes but is not limited to cervical radiculopathy, cervical strain, cervical degenerative disc disease, cervical stenosis, rotator cuff injury, compression fracture etc. On exam the patient is in no acute distress, nontoxic appearing, vital signs appropriate except for mildly elevated blood pressure which appears consistent with her history of blood pressure readings. She is having nontraumatic worsening pain of her cervical spine over the last 3 days predominantly on the left side. She has not having any flu-like symptoms or meningeal signs. She does have reproducible pain with palpation and with rotation of the head to the left. Given patient age and symptoms, we will obtain CT cervical spine for further evaluation and we will treat her symptoms with Toradol, Tylenol and Lidoderm at this time. Both patient and her are agreeable to this plan. Patient's pain improved significantly with ED treatment and she feels the Lidoderm patches are very effective. Prescription sent to her pharmacy of choice. CT cervical spine does reveal multilevel spondylitic changes most notably at C5-C6 and C6-C7 with [id number] central canal stenosis and bilateral neural foraminal narrowing. Printed discussed imaging results with patient and her . Recommended follow up with her PCP who can refer to ortho spine as needed. Recommended ibuprofen and Tylenol in addition to Lidoderm, heat therapy, discussed that she could benefit from physical therapy as well. Patient and her verbalized understanding of all information and are agreeable with the plan, she is feeling better and stable for discharge home. Discharge Plan Departure Patient Disposition: Home Clinical Impression: Cervical spondylosis Instructions: DI for Neck Pain Activity Restrictions/Additional Instructions: Dear Ms. Sparrow, Thank you for coming to the emergency department. Today you were evaluated for neck pain and the CT scan of your cervical spine did reveal significant degenerative changes. I would like you to follow up with your primary care doctor who can refer you to a spine surgeon for further management. You have been prescribed Lidoderm which are numbing patches. I would also like use to use Tylenol and ibuprofen for your pain in addition to heat therapy. Please take Ibuprofen (Motrin/Advil) or Acetaminophen (Tylenol) for pain. These are available over the counter. You may take Ibuprofen 600 mg every 8 hours with food for pain. You may also take Acetaminophen 650 mg every 4-6 hours for pain. Do not exceed 3000 mg of Tylenol a day as this can cause liver damage. Do not drink alcohol with either of these medications. Please follow up with your primary care doctor within the next 2-3 days for ER follow-up. (If you do not have a PCP you can call [phone]. ?to schedule an appointment with an [facility] Primary Care Provider) IF YOU DEVELOP ANY NEW OR WORSENING SYMPTOMS, RETURN TO THE ER! Please read the attached instructions, they highlight more specific treatments and interventions for you at home. Thank you for letting me participate in your care, Rebecca Harris PA-C Prescriptions: New lidocaine [Lidoderm] 5 % adhesive patch,medicated 1 patch topical DAILY Qty: 30 0RF Rx Instructions: leave on most painful area for up to 12 hrs No Action Fish Oil 100-160-1,000 mg Capsule 1 cap PO DAILY Red Rice 1 tab PO BID ascorbic acid (vitamin C) 1 tab PO DAILY tramadol 50 mg tablet 50 mg PO Q6H PRN (Reason: pain) Qty: 10 0RF Referrals: Issac Cunningham MD [Primary Care Provider, Family Practice] Stand Alone Forms: Patient Portal/API ED Sign-out <John Perea MD - Last Filed: 06/07/25 09:37> [facility]: I was available for consultation during this patient's emergency department vis it. This chart is signed by myself for administrative purposes only. I did not have direct contact with this patient during this visit. They were seen independently by the APC.
--- NOTE | 2025-06-06 12:05 | DI.CT.S_ITS ---
PROCEDURE: CT CERVICAL SPINE WO CON INDICATIONS: midline and L sided neck pain TECHNIQUE: Noncontrast 3 mm thick sections acquired from the skull base to the T4 level. Sagittal and coronal reformats were then constructed. For radiation dose reduction, the following was used: automated exposure control, adjustment of mA and/or kV according to patient size. COMPARISON: [facility], CT, CT CERVICAL SPINE WO CON, 12/09/2023, 7:35. FINDINGS: Image quality: Excellent. Bones: No fractures or dislocations. Loss of disc height, degenerative endplate changes and bilateral facet hypertrophic changes are noted throughout cervical spine more notably at C5-6 and C6-7 levels causing [id number] central canal stenosis and bilateral neural foraminal narrowing. Visualized superior ribs are intact. Soft tissues: Prevertebral soft tissues are normal in thickness. No paravertebral hematomas. No apical pneumothoraces. IMPRESSION: 1. No displaced fracture or traumatic subluxation. 2. Multilevel spondylitic changes throughout cervical spine more notably at C5-6 and C6-7 levels as above. Dictated by: Lorenzo Phillips M.D. on 06/06/2025 at 13:35 Approved by: Lorenzo Phillips M.D. on 06/06/2025 at 13:36
[2025-06-06] MEDS: ACETAMINOPHEN 325 MG TABLET 975 MG PO (12:21)
[2025-06-06] MEDS: KETOROLAC 30 MG/ML VIAL IM (12:21)
[2025-06-06] MEDS: LIDOCAINE 5% PATCH 1 EACH TOP (12:21)
[2025-06-06 14:06] VITALS: BP 147/67; PULSE 57; RESP 16; TEMP 36.5; O2SAT 98
== END 2025-06-06 14:06 | disposition home or self-care (01) ==
PROVIDERS: Emergency Provider Physician Assistant; PCP Family Medicine
DX: M47.812 Spondylosis without myelopathy or radiculopathy, cervical region (principal)
CPT/HCPCS: 72125; 96372; 99283; 99284; J1885